=== PATIENT | female | born 1980 | race Hispanic/Latino ===

== ENCOUNTER 2016-08-30 05:52 | Emergency (ER) | payer MEDICAID ==
--- NOTE | 2016-08-30 06:24 | ED PDOC ---
Arrival/HPI - General Time Seen by Provider: 08/30/16 06:18 - History of Present Illness Narrative History of Present Illness (Text): 08/30/16 06:23 Patient presents for suicidal ideation does not have a plan admits to abusing heroin alcohol not sure if she is no abdominal pain no fever no chills no dizziness no dysuria Past Medical History - Provider Review Nursing Documentation Reviewed: Yes - Infectious Disease Hx of Infectious Diseases: None - Tetanus Immunization Tetanus Immunization: Unknown - Cardiac Hx Cardiac Disorders: No - Pulmonary Hx Respiratory Disorders: No - Neurological Hx Neurological Disorder: No - HEENT Hx HEENT Disorder: No - Renal Hx Renal Disorder: No - Endocrine/Metabolic Hx Endocrine Disorders: No - Hematological/Oncological Hx Blood Disorders: No - Integumentary Hx Cellulitis: Yes Other/Comment: Abscess on hands, and feet - Musculoskeletal/Rheumatological Hx Musculoskeletal Disorders: No - Gastrointestinal Hx Gastrointestinal Disorders: No - Genitourinary/Gynecological Hx Genitourinary Disorders: No - Psychiatric Hx Psychophysiologic Disorder: No Hx Substance Use: Yes - Past Surgical History Past Surgical History: No Previous - Surgical History Hx Appendectomy: No Hx Carotid Endarterectomy: No Hx Cholecystectomy: No Hx Coronary Artery Bypass Graft: No Hx Coronary Stent: No Hx Tonsillectomy: No - Anesthesia Hx Anesthesia: No Hx Anesthesia Reactions: No Hx Malignant Hyperthermia: No - Suicidal Assessment Feels Threatened In Home Enviroment: No Family/Social History - Physician Review Nursing Documentation Reviewed: Yes Family/Social History: No Known Family HX Smoking Status: Smoker Currrent Status Unknown Hx Alcohol Use: Yes Hx Substance Use: Yes Substance used: Heroin, Cocaine, Benzo Allergies/Home Meds Allergies/Adverse Reactions: Allergies haloperidol lactate [From Haldol] Allergy (Intermediate, Verified 12/17/15 15:05 ) SHORTNESS OF BREATH haloperidol Allergy (Unknown, Verified 10/26/15 13:53) UNKNOWN Home Medications: Home Meds Medication Instructions Recorded Confirmed Ativan 2 mg PO BID 11/11/15 08/30/16 Review of Systems - Physician Review All systems were reviewed & negative as marked: Yes - Review of Systems Constitutional: Normal Eyes: Normal ENT: Normal Respiratory: Normal Cardiovascular: Normal Gastrointestinal: Abdominal Pain Genitourinary Female: Normal Musculoskeletal: Normal Skin: Normal Neurological: Normal Endocrine: Normal Hemo/Lymphatic: Normal Psychiatric: Suicidal Ideation Physical Exam Vital Signs Reviewed: Yes Vital Signs Pulse Resp BP Pulse Ox 08/30/16 15:50 80 18 118/80 99 08/30/16 13:45 70 18 110/70 99 08/30/16 11:25 80 18 120/73 99 08/30/16 09:30 70 18 124/80 99 08/30/16 07:30 80 18 126/76 98 Temperature: Afebrile Blood Pressure: Normal Pulse: Regular Respiratory Rate: Normal Appearance: Positive for: Well-Appearing, Non-Toxic, Comfortable, Unkept Pain Distress: None Mental Status: Positive for: Alert and Oriented X 3 - Systems Exam Head: Present: Atraumatic, Normocephalic Pupils: Present: PERRL Extroacular Muscles: Present: EOMI Conjunctiva: Present: Normal Mouth: Present: Moist Mucous Membranes Neck: Present: Normal Range of Motion Respiratory/Chest: Present: Clear to Auscultation, Good Air Exchange. No: Respiratory Distress, Accessory Muscle Use Cardiovascular: Present: Regular Rate and Rhythm, Normal S1, S2. No: Murmurs Abdomen: Present: Normal Bowel Sounds. No: Tenderness, Distention, Peritoneal Signs Back: Present: Normal Inspection Upper Extremity: Present: Normal Inspection. No: Cyanosis, Edema Lower Extremity: Present: Normal Inspection. No: Edema Neurological: Present: GCS=15, CN II-XII Intact, Speech Normal Skin: Present: Warm, Dry, Normal Color. No: Rashes Psychiatric: Present: Alert, Oriented x 3, Normal Insight, Normal Concentration , Intoxicated Medical Decision Making - Lab Interpretations Lab Results: 08/30/16 13:00 08/30/16 13:00 Lab Results 08/30/16 13:00: Alcohol, Quantitative 169 H 08/30/16 13:00: Salicylates < 1 L, Acetaminophen < 10.0 L 08/30/16 13:00: Sodium 140, Potassium 4.0, Chloride 104, Carbon Dioxide 23, Anion Gap 17, BUN 10, Creatinine 0.8, Est GFR ( Amer) > 60, Est GFR (Non- Af Amer) > 60, Random Glucose 151 H, Calcium 9.3, Total Bilirubin 0.3, AST 139 H , ALT 106 H, Alkaline Phosphatase 75, Total Protein 8.0, Albumin 4.5, Globulin 3.5, Albumin/Globulin Ratio 1.3 08/30/16 13:00: WBC 7.0 D, RBC 4.53, Hgb 14.7, Hct 42.2, MCV 93.2, MCH 32.5, MCHC 34.8, RDW 12.1, Plt Count 278, MPV 8.8, Gran % 42.3 L, Lymph % (Auto) 46.6 H, [place] % (Auto) 7.7 H, Eos % (Auto) 3.0, Baso % (Auto) 0.4, Gran # 2.94, Lymph # 3.3, [place] # 0.5, Eos # 0.2, Baso # 0.03 08/30/16 09:40: Urine Color Yellow, Urine Appearance Clear, Urine pH 6.5, Ur Specific [place] <= 1.005, Urine Protein Negative, Urine Glucose (UA) Negative, Urine Ketones Negative, Urine Blood Negative, Urine Nitrate Negative, Urine Bilirubin Negative, Urine Urobilinogen 0.2, Ur Leukocyte Esterase Negative, Urine HCG, Qual Negative 08/30/16 09:40: Urine Opiates Screen Positive H, Urine Methadone Screen Negative , Ur Barbiturates Screen Negative, Ur Phencyclidine Scrn Negative, Ur Amphetamines Screen Negative, U Benzodiazepines Scrn Negative, U Oth Cocaine Metabols Positive H, U Cannabinoids Screen Negative - RAD Interpretation Radiology Orders: 08/30/16 13:56 CHEST PORTABLE [RAD] Stat - Medication Orders Current Medication Orders: Clonazepam (Klonopin) 2 mg PO TID PRN; Protocol PRN Reason: Anxiety Lorazepam (Ativan) 2 mg IM Q6H PRN; Protocol PRN Reason: Agitation Last Admin: 08/30/16 09:37 Dose: 2 mg Olanzapine (Zyprexa Zydis) 5 mg PO [facility] MICHAEL PRN Reason: Protocol Last Admin: 08/30/16 14:20 Dose: 5 mg Ziprasidone (Geodon Inj) 20 mg IM Q6H PRN; Protocol PRN Reason: agitation Last Admin: 08/30/16 09:37 Dose: 20 mg Discontinued Medications Lorazepam (Ativan) 2 mg IM ONCE ONE PRN Reason: Protocol Stop: 08/30/16 07:51 Last Admin: 08/30/16 08:03 Dose: 2 mg - Transfer of Care Patient signed out to Dr:: derrek pierre Disposition/Present on Arrival - Present on Arrival Any Indicators Present on Arrival: No History of DVT/PE: No History of Uncontrolled Diabetes: No Urinary Catheter: No History Surgical Site Infection Following: None - Disposition Have Diagnosis and Disposition been Completed?: Yes Diagnosis: Psychosis, Suicidal ideations Disposition: HOSPITALIZED Disposition Time: 07:00 Patient Problems: Current Active Problems Problem Status Onset Psychosis Acute Suicidal ideations Acute Condition: GOOD [facility] - Follow up with primary
[2016-08-30 06:27] VITALS: BMI 22.1
--- NOTE | 2016-08-30 08:26 | ED PDOC ---
Medical Decision Making ED Course and Treatment: 08/30/16 07:00 Patient signed out to me by Dr. Bernal pending labs, PES evaluation, and disposition. 08/30/16 07:50 As per RN, patient being increasingly agitated, yelling at staff. Ativan ordered. - Medication Orders Current Medication Orders: Discontinued Medications Lorazepam (Ativan) 2 mg IM ONCE ONE PRN Reason: Protocol Stop: 08/30/16 07:51 Last Admin: 08/30/16 08:03 Dose: 2 mg Disposition/Present on Arrival - Present on Arrival Any Indicators Present on Arrival: No History of DVT/PE: No History of Uncontrolled Diabetes: No Urinary Catheter: No History of Decub. Ulcer: No History Surgical Site Infection Following: None - Disposition Have Diagnosis and Disposition been Completed?: Yes Diagnosis: Psychosis, Suicidal ideations Disposition: HOSPITALIZED Disposition Time: 14:00 Condition: GOOD Referrals: [facility], [Primary Care Provider] - Follow up with primary
[2016-08-30 09:51] LABS: PH,URINE 6.5 (4.7-8.0); URINE BILIRUBIN NEGATIVE (NEGATIVE); URINE BLOOD NEGATIVE (NEGATIVE); URINE GLUCOSE (UA) NEGATIVE (NEGATIVE); URINE KETONE NEGATIVE (NEGATIVE); URINE LEUKOCYTE ESTERASE NEGATIVE Leu/uL (NEGATIVE); URINE PROTEIN NEGATIVE mg/dL (<30 mg/dL); URINE UROBILINOGEN 0.2 E.U./dL (<1 E.U./dL)
[2016-08-30 09:53] LABS: URINE APPEARANCE CLEAR (CLEAR); URINE COLOR YELLOW (YELLOW)
[2016-08-30] MEDS ORDERED: OLANZapine 5 mg Disintegrating Tab PO SCH (10:00)
[2016-08-30 11:26] VITALS: RESP 18; O2SAT 99
[2016-08-30 13:34] LABS: ADD MANUAL DIFF? NO
--- NOTE | 2016-08-30 13:34 | CON ---
DATE: 08/30/2016 HISTORY OF PRESENT ILLNESS: Shortly, the patient is a 36-year-old female. Long history of polysubstance abuse and dependence. Multiple admissions to the psychiatric inpatient unit; most rec ent was in this facility in 09/2015. The patient came to the hospital this time complaining that she is feeling depressed, also said that she has suicidal ideations, ____ plan. The patient was evaluated in the Emergency Room today. The patient presented to be disheveled, seems to be under the influence of drugs. Without any trigger, patient started to yell at this process description writer say ing that this process description writer is not going to help her. The patient was providing vague and inconsistent hist ory. The patient reported that she was discharged from [facility] about 11 months ago and she stopp ed using drugs intravenously. Right now, the patient is snorting opioids. The patient reported that she was drinking alcohol on a regular basis. The patient started to cry hysterically and said that she cannot live any longer. The patient reported that she has feeling that she wants to cut her wris t. There are no wrist cuts observed on patient's forearms. The patient presented to be emotionally labile and this process description writer was not able to continue conversation because the patient was threatening this process description writer, yelling and screaming. This process description writer reviewed previous history. The patient has multiple adm issions in the past. Also, patient was in multiple rehabs and in detox in the past. VITAL SIGNS: This process description writer reviewed vital signs. Vital signs seem to be stable. MEDICATIONS: Reviewed. The patient got 2 mg of Ativan earlier today. LABORATORIES: Reviewed. There are no labs available. The patient started to scream. The patient was yelling and was disruptive in the Emergency Room. Th is process description writer feels that patient needs to be medicated. Geodon 20 mg and Ativan 2 mg will be given to th e patient. As present moment, patient deemed to be in acute distress; will be not able to sign consent. Moreove r, this process description writer has no beds available. When this process description writer offered the patient to have detox as well as psychiatric inpatient admission, patient started to yell and scream. There is no option to have mean ingful conversation. The patient has no insight, was not able to participate in the interview. MENTAL STATUS EXAMINATION: The patient presented to be disheveled, poor personal hygiene, intermitte nt eye contact. Speech was loud, over-productive, patient was screaming, threatening this process description writer. Mallory taylor described as depressed, hopeless and helpless. Thought process was circumstantial and tangential and disorganized. Thought content: The patient denied hearing voices, denied seeing things. At th e same time, the patient presented to be psychotic and paranoid. The patient also verbalized thought s of killing herself, but plan ____. The patient said that she wanted to kill herself with a razor, cut her wrist with a razor. Impulses are not predictable. IMPRESSION: As per previous history, the patient has bipolar disorder, posttraumatic stress disorder , panic disorder, generalized anxiety disorder. The patient also has polysubstance abuse and depende nce, the patient said that she was using heroin as well as alcohol; polysubstance abuse and dependenc e as per history. PLAN: PRN orders will be placed in the computer; Klonopin 2 mg 3 times a day as needed for anxiety. This process description writer also will give IM medication of Geodon and Ativan, 20 and 2, q. 6 hours as needed for se maggi agitation. The patient also needs to be screened by [facility] for involuntary commitment. The patient also will be started on Zyprexa 5 mg twice a day at the morning time and the nighttime. This process description writer will follow up and advise accordingly. This process description writer will initiate [facility] screening services. Thank you very much for letting me participate in the care of your patient. Julita Sotelo MD cc: [id number] TT: 08/30/2016 11:54:46 Confirmation # [id number] Dictation # [id number] mn 08/30/2016 12:33:31
[2016-08-30 13:42] LABS: BASO # 0.03 K/mm3 (0.0-2.0); BASO % 0.4 % (0.0-3.0); EOS # 0.2 (0.0-0.7); GRAN # 2.94 (1.4-6.5); GRAN % 42.3 % (50.0-68.0); HEMATOCRIT 42.2 % (36.0-48.0); LYMPH # 3.3 (1.2-3.4); LYMPH % 46.6 % (22.0-35.0); MEAN CELL VOLUME 93.2 fL (80.0-105.0); MEAN CORPUSCULAR HEMOGLOBIN 32.5 pg (25.0-35.0); MEAN CORPUSCULAR HGB CONC 34.8 g/dl (31.0-37.0); MEAN PLATELET VOLUME 8.8 fl (7.0-11.0); MONO # 0.5 (0.1-0.6); MONO % 7.7 % (1.0-6.0); PLATELET COUNT 278 10^3/uL (120.0-450.0); RED CELL DISTRIBUTION WIDTH 12.1 % (11.5-14.5)
[2016-08-30 13:47] LABS: ALB/GLOB RATIO 1.3 (1.1-1.8); ALKALINE PHOSPHATASE 75 U/L (38-133); ALT/SGPT 106 U/L (7-56); AST/SGOT 139 U/L (15-39); BILIRUBIN,TOTAL 0.3 mg/dL (0.2-1.3); BLOOD UREA NITROGEN 10 mg/dL (7-21); CALCIUM 9.3 mg/dL (8.4-10.5); CARBON DIOXIDE 23 mmol/L (21-33); CHLORIDE 104 mmol/L (98-107); GFR AFRICAN-AMERICAN > 60; GLUCOSE,RANDOM 151 mg/dL (70-110); SODIUM 140 mmol/L (132-148)
--- NOTE | 2016-08-30 14:30 | RAD ---
HISTORY: psych COMPARISON: Chest x-ray performed 10/26/15 TECHNIQUE: Chest, one view. FINDINGS: LUNGS: No focal consolidation. Please note that chest x-ray has limited sensitivity for the detection of pulmonary masses. PLEURA: No significant pleural effusion identified. No definite pneumothorax . CARDIOVASCULAR: The cardiomediastinal silhouette appears within normal limits of size. OSSEOUS STRUCTURES: No acute osseous abnormality identified. VISUALIZED UPPER ABDOMEN: Unremarkable. OTHER FINDINGS: None. IMPRESSION: No focal consolidation, significant pleural effusion, or definite pneumothorax identified.
--- NOTE | 2016-08-30 18:32 | CARD ---
APPROVED REPORT EKG Measurement Heart [id number] <Conclusion> Normal sinus rhythm Normal ECG
[2016-08-30 20:14] VITALS: BP 120/82; PULSE 79
--- NOTE | 2016-09-01 09:45 | CP.PCM.PCO ---
Physician Communication Note - Physician Communication Note Physician Communication Note: MARYJO called this race and sports book writer, [place] [facility] [place], will be d/c
== END 2016-08-30 20:13 | disposition short-term general hospital (02) ==
LOC: ED 05:52
DX: F29 Unspecified psychosis not due to a substance or known physiological condition (principal); R45.851 Suicidal ideations
CPT/HCPCS: 71010; 80053; 80320; 80324; 80329; 80345; 80346; 80349; 80353; 80358; 80361; 81003; 83992; 84703; 85025; 90791; 93005; 96372; 99285; J2060; J3486

== ENCOUNTER 2016-11-28 12:17 | Inpatient (IN) | payer MEDICAID, OTHER ==
[2016-11-28 12:17] VITALS: BMI 22.1
[2016-11-28] MEDS ORDERED: TDAP Vaccine 0.5 mL Syr IM ONE (12:46)
--- NOTE | 2016-11-28 12:51 | ED PDOC ---
Arrival/HPI - General Historian: Patient - History of Present Illness Symptom Course: Unchanged Activities at Onset: Light Context: Home - General Time Seen by Provider: 11/28/16 12:44 - History of Present Illness Narrative History of Present Illness (Text): 11/28/16 12:44 Maura Cadena is a 36 year old female who presents stating that she used heroin and wanted to kill herself by slitting her wrists. Patient comes into the emergency department with left wrist laceration. (George Ma) Modifying Factors (Text): none (George Ma) Past Medical History - Provider Review Nursing Documentation Reviewed: Yes - Infectious Disease Hx of Infectious Diseases: None - Tetanus Immunization Tetanus Immunization: Unknown - Cardiac Hx Cardiac Disorders: No - Pulmonary Hx Respiratory Disorders: No - Neurological Hx Neurological Disorder: No - HEENT Hx HEENT Disorder: No - Renal Hx Renal Disorder: No - Endocrine/Metabolic Hx Endocrine Disorders: No - Hematological/Oncological Hx Blood Disorders: No - Integumentary Hx Cellulitis: Yes Other/Comment: Abscess on hands, and feet - Musculoskeletal/Rheumatological Hx Musculoskeletal Disorders: No - Gastrointestinal Hx Gastrointestinal Disorders: No - Genitourinary/Gynecological Hx Genitourinary Disorders: No - Psychiatric Hx Psychophysiologic Disorder: No Hx Substance Use: Yes - Past Surgical History Past Surgical History: No Previous - Surgical History Hx Appendectomy: No Hx Carotid Endarterectomy: No Hx Cholecystectomy: No Hx Coronary Artery Bypass Graft: No Hx Coronary Stent: No Hx Tonsillectomy: No - Anesthesia Hx Anesthesia: No Hx Anesthesia Reactions: No Hx Malignant Hyperthermia: No - Suicidal Assessment Feels Threatened In Home Enviroment: No Family/Social History - Physician Review Nursing Documentation Reviewed: Yes Family/Social History: No Known Family HX Smoking Status: Smoker Currrent Status Unknown Hx Alcohol Use: Yes Hx Substance Use: Yes Substance used: Heroin, Cocaine, Benzo Allergies/Home Meds Allergies/Adverse Reactions: Allergies haloperidol lactate [From Haldol] Allergy (Intermediate, Verified 11/28/16 12:42 ) SHORTNESS OF BREATH haloperidol Allergy (Unknown, Verified 11/28/16 12:42) UNKNOWN Home Medications: Home Meds Medication Instructions Recorded Confirmed Unobtainable 11/28/16 11/28/16 Review of Systems - Review of Systems Systems not reviewed;Unavailable: Intoxicated Physical Exam Vital Signs Reviewed: Yes Temperature: Afebrile Blood Pressure: Normal Pulse: Tachycardic (resolved) Respiratory Rate: Normal Appearance: No: Uncomfortable Pain Distress: None Mental Status: No: Confused, Agitated - Physical Exam Narrative Physical Exam (Text): pt in no distress, no airway compromise, breathing without difficulty, good insp /exp effort. No signs of head/torso/extremity trauma. Following commands without difficulty. Head: Present: Atraumatic, Normocephalic. No: Tenderness, Contusion, Swelling, Ecchymosis, Abrasion, Laceration Pupils: Present: PERRL Extroacular Muscles: Present: EOMI Conjunctiva: Present: Normal Mouth: Present: Moist Mucous Membranes Neck: Present: Normal Range of Motion. No: MIDLINE TENDERNESS, Paraspinal Tenderness Respiratory/Chest: Present: Clear to Auscultation, Good Air Exchange. No: Respiratory Distress, Accessory Muscle Use Cardiovascular: Present: Regular Rate and Rhythm, Normal S1, S2. No: Murmurs Abdomen: Present: Normal Bowel Sounds. No: Tenderness, Distention, Peritoneal Signs, Rebound, Guarding Back: Present: Normal Inspection. No: Midline Tenderness, Paraspinal Tenderness Upper Extremity: Left wrist with a 3-4 mm deep horizontal linear laceration. No tendon involvement. No bleeding. Digits with full active and passive ROM. No: Cyanosis, Edema Lower Extremity: Present: Normal Inspection. No: Edema Neurological: Present: GCS=15, CN II-XII Intact Skin: Present: Warm, Dry, Normal Color. No: Rashes Lymphatic: Present: OX3, NI, NC Psychiatric: Present: Alert. No: Agitated (Zelikson,George) Vital Signs Temp Pulse Resp BP Pulse Ox 11/29/16 06:57 97.9 F 66 16 112/87 99 11/29/16 01:47 94 H 16 148/77 100 11/28/16 23:00 90 16 142/76 100 11/28/16 20:30 86 16 142/78 100 11/28/16 19:20 68 12 121/71 98 11/28/16 17:07 91 H 18 114/66 97 11/28/16 15:06 87 18 101/63 95 11/28/16 12:36 98.2 F 102 H 16 113/72 93 L Medical Decision Making ED Course and Treatment: 11/28/16 12:44 Impression: 36 year old female who presents stating that she used heroin and wanted to kill herself by slitting her wrists. Patient comes into the emergency department with left wrist laceration. Plan: -- EKG -- Chest X-ray -- Urinalysis -- Labs -- Ativan and Boostrix -- Reassess and disposition Prior Visits: Notes and results from previous visits were reviewed. Patient last seen in the ED on 08/30/16 for suicidal ideation that day. Patient was admitted to hospitalist care for further evaluation. Progress Notes: EKG shows NSR at [address]-segment elevations, normal intervals. Interpreted by me. PROCEDURE: LACERATION REPAIR Performed by the emergency provider Location: Left wrist Length: 3-4 mm deep approximately 6 cm long horizontally Description: clean wound edges, no foreign bodies Distal CMS: Normal. No deficits. Neurovascularly intact. Anesthesia: Lidocaine 1% Preparation: The wound was cleaned with NS. The area was prepped and draped in the usual sterile fashion. Exploration: The wound was explored and no foreign bodies were found. Procedure: The wound was closed with 4-0 ethilon. There was good approximation. In total, 7 simple interrupted sutures were used. Post-Procedure: Good closure and hemostasis. The patient tolerated the procedure well and there were no complications. CSM remains intact. No bleeding , well approximated, no pulsatile masses, no discoloration, no swelling. Patient is able to move all digits without any difficulty or restriction. Distal neuro and sensory fully intact. After procedure clean dressing applied. (George Ma) - Medication Orders Current Medication Orders: Discontinued Medications Chlordiazepoxide (Librium) 50 mg PO STAT STA Stop: 11/29/16 05:56 Last Admin: 11/29/16 06:37 Dose: 50 mg Lidocaine HCl (Lidocaine 1% (20ml)) Confirm Administered Dose 20 ml .ROUTE .STK- MED ONE Stop: 11/28/16 15:17 Lorazepam (Ativan) 2 mg IM ONCE ONE Stop: 11/28/16 12:47 Last Admin: 11/28/16 16:38 Dose: Tetanus/Reduced Diphtheria/Acell Pertussis (Boostrix Vaccine Inj) 0.5 ml IM .ONCE ONE Stop: 11/28/16 12:47 Last Admin: 11/28/16 16:18 Dose: 0.5 ml ED OBSERVATION Date of observation admission: 11/28/16 Time of observation admission: 12:40 - Progress Note Progress Note: 11/28/16 19:00 Case endorsed to me by Dr. Ma, pending PES evaluation, and dispo. 11/28/16 21:00 Pt resting comfortably, no acute distress. 11/28/16 22:00 PES attempted to interview pt. Pt still under the influence of illegal substances. Will observe pending PES screen. 11/29/16 00:00 Pt sleeping, no acute distress. 11/29/16 02:00 Pt sleeping, no acute distress. 11/29/16 04:00 Pt sleeping, no acute distress. 11/29/16 05:55 PES screener Tigist to Emergency department to evaluate pt. 11/29/16 06:42 Pt seen and evaluated by PES screener Tigist, who discussed case with Dr. Sotelo, psychiatrist. States she will come in to evaluate pt in ER for final disposition. 11/29/16 07:[address] Ma, pending psychiatric disposition as per Dr. Sotelo. (Gregory He) 11/28/16 19:24 patient now alert and awake in no distress 1:1 pt clinically sober, wound reassessed. no bleeding, no pulsatile mass. distal neurovascular fully intact. digits with full ROM, good color pt signed out to Dr. He in stable condition, pending PES evaluation, and dispo 11/29/16 07:[address] He, pending Dr. Sotelo's evaluation pt in no distress this morning, denies complaints. no s/s of withdrawal 11/29/16 08:50: Patient seen by Dr. Sotelo and was accepted to the behavioral health floor. pt aware of and agrees with plan (George Ma) - Scribe Statement The provider has reviewed the documentation as recorded by the Scribe - Scribe Statement Thuy Hendrix Provider Scribe Attestation: All medical record entries made by the Scribe were at my direction and personally dictated by me. I have reviewed the chart and agree that the record accurately reflects my personal performance of the history, physical exam, medical decision making, and the department course for this patient. I have also personally directed, reviewed, and agree with the discharge instructions and disposition. (George Ma) Disposition/Present on Arrival - Present on Arrival Any Indicators Present on Arrival: No History of DVT/PE: No History of Uncontrolled Diabetes: No Urinary Catheter: No History Surgical Site Infection Following: None - Disposition Have Diagnosis and Disposition been Completed?: Yes Disposition Time: 12:40 Patient Plan: Admission - Disposition Diagnosis: Suicidal behavior Disposition: HOSPITALIZED Condition: FAIR
[2016-11-28 13:54] LABS: BASO # 0.03 K/mm3 (0.0-2.0); BASO % 0.4 % (0.0-3.0); EOS # 0.1 (0.0-0.7); EOS % 1.9 % (1.5-5.0); GRAN # 3.73 (1.4-6.5); GRAN % 49.9 % (50.0-68.0); MEAN CELL VOLUME 93.1 fl (80.0-105.0); MEAN CORPUSCULAR HEMOGLOBIN 31.9 pg (25.0-35.0); MEAN CORPUSCULAR HGB CONC 34.3 g/dl (31.0-37.0); MEAN PLATELET VOLUME 8.6 fl (7.0-11.0); MONO # 0.6 (0.1-0.6); MONO % 7.8 % (1.0-6.0); RED CELL DISTRIBUTION WIDTH 13.2 % (11.5-14.5); WHITE BLOOD COUNT 7.5 10^3/ul (4.5-11.0)
[2016-11-28 14:05] LABS: ALB/GLOB RATIO 1.4 (1.1-1.8); ALKALINE PHOSPHATASE 74 U/L (38-133); ALT/SGPT 61 U/L (7-56); AST/SGOT 67 U/L (15-39); BILIRUBIN,TOTAL < 0.1 mg/dL (0.2-1.3); BLOOD UREA NITROGEN 11 mg/dL (7-21); CALCIUM 8.3 mg/dL (8.4-10.5); CARBON DIOXIDE 23 mmol/L (21-33); CHLORIDE 113 mmol/L (98-107); GFR AFRICAN-AMERICAN > 60; GLUCOSE,RANDOM 90 mg/dL (70-110); POTASSIUM 3.4 mmol/L (3.6-5.0); SODIUM 149 mmol/L (132-148); TOTAL PROTEIN 6.9 g/dL (5.8-8.3)
[2016-11-28] MEDS ORDERED: Lidocaine 1% Inj (20ml) ONE (15:16)
[2016-11-28 15:26] LABS: URINE BILIRUBIN NEGATIVE (NEGATIVE); URINE BLOOD NEGATIVE (NEGATIVE); URINE GLUCOSE (UA) NEGATIVE (NEGATIVE); URINE KETONE NEGATIVE (NEGATIVE); URINE LEUKOCYTE ESTERASE NEGATIVE Leu/uL (NEGATIVE); URINE PROTEIN NEGATIVE mg/dL (<30 mg/dL); URINE UROBILINOGEN 0.2 E.U./dL (<1 E.U./dL)
[2016-11-28 15:28] LABS: URINE APPEARANCE CLEAR (CLEAR); URINE COLOR YELLOW (YELLOW)
--- NOTE | 2016-11-28 19:09 | CARD ---
APPROVED REPORT EKG Measurement Heart [id number] <Conclusion> Normal sinus rhythm Rightward axis Cannot rule out Anterior infarct, age undetermined Abnormal ECG
--- NOTE | 2016-11-28 19:10 | CARD ---
APPROVED REPORT EKG Measurement Heart [id number] <Conclusion> Normal sinus rhythm with sinus arrhythmia Normal ECG
--- NOTE | 2016-11-29 07:16 | ED PDOC ---
Physical Exam Vital Signs Reviewed: Yes Vital Signs Temp Pulse Resp BP Pulse Ox 11/29/16 06:57 97.9 F 66 16 112/87 99 11/29/16 01:47 94 H 16 148/77 100 11/28/16 23:00 90 16 142/76 100 11/28/16 20:30 86 16 142/78 100 11/28/16 19:20 68 12 121/71 98 11/28/16 17:07 91 H 18 114/66 97 11/28/16 15:06 87 18 101/63 95 11/28/16 12:36 98.2 F 102 H 16 113/72 93 L Temperature: Afebrile Blood Pressure: Normal Pulse: Tachycardic Respiratory Rate: Normal Appearance: Positive for: Well-Appearing, Non-Toxic, Comfortable Pain Distress: None Mental Status: Positive for: Alert and Oriented X 3 Medical Decision Making ED Course and Treatment: 11/29/16 07:15: Patient sign out from overnight. Pending evaluation by psychiatrist this morning. - Medication Orders Current Medication Orders: Discontinued Medications Chlordiazepoxide (Librium) 50 mg PO STAT STA Stop: 11/29/16 05:56 Last Admin: 11/29/16 06:37 Dose: 50 mg Lidocaine HCl (Lidocaine 1% (20ml)) Confirm Administered Dose 20 ml .ROUTE .STK- MED ONE Stop: 11/28/16 15:17 Lorazepam (Ativan) 2 mg IM ONCE ONE Stop: 11/28/16 12:47 Last Admin: 11/28/16 16:38 Dose: Tetanus/Reduced Diphtheria/Acell Pertussis (Boostrix Vaccine Inj) 0.5 ml IM .ONCE ONE Stop: 11/28/16 12:47 Last Admin: 11/28/16 16:18 Dose: 0.5 ml - Scribe Statement The provider has reviewed the documentation as recorded by the Sisi Abdul Provider Scribe Attestation: All medical record entries made by the Scribe were at my direction and personally dictated by me. I have reviewed the chart and agree that the record accurately reflects my personal performance of the history, physical exam, medical decision making, and the department course for this patient. I have also personally directed, reviewed, and agree with the discharge instructions and disposition. Disposition/Present on Arrival - Present on Arrival Any Indicators Present on Arrival: No History of DVT/PE: No History of Uncontrolled Diabetes: No Urinary Catheter: No History of Decub. Ulcer: No History Surgical Site Infection Following: None - Disposition Condition: STABLE
--- NOTE | 2016-11-29 08:34 | RAD ---
HISTORY: med clearance COMPARISON: 08/30/2016 FINDINGS: LUNGS: No active pulmonary disease. PLEURA: No significant pleural effusion identified, no pneumothorax apparent. CARDIOVASCULAR: Normal. OSSEOUS STRUCTURES: No significant abnormalities. VISUALIZED UPPER ABDOMEN: Normal. OTHER FINDINGS: None. IMPRESSION: No active disease. No interval pathology noted
--- NOTE | 2016-11-29 13:14 | PCM.BM ---
<Malka Enriquez - Last Filed: 11/29/16 13:11> Treatment Plan Problems - Problems identified on initial assessmt sucidal ideation Date Initiated: 11/29/16 Time Initiated: 13:11 Assessment reference: NA Status: Active Priority: 1 helpless/hopeless Date Initiated: 11/29/16 Time Initiated: 13:12 Assessment reference: NA Status: Active Priority: 2 anxiety Date Initiated: 11/29/16 Time Initiated: 13:12 Assessment reference: NA Status: Active Priority: 3 ineffective coping Date Initiated: 11/29/16 Time Initiated: 13:14 Assessment reference: NA Status: Active Priority: 5 Treatment assets and liabiliti Patient Assests: adapts well, ADL independent, negotiates basic needs Patient Liabilities: poor support system, substance abuse - Milieu Protocol Maintain good personal hygiene: daily Encourage regular showers, daily Remind patient to perform daily oral care, daily Assist patient to perform ADL's Conduct patient checks and document Observation sheet: Q15 minutes Maintain personal safety: every shift Educate patient to report safety concerns to staff, every shift Monitor environment for contraband/sharps Medication safety: Monitor for expected outcome, potential side effects: every shift, Assess barriers to learning: every shift, Assess readiness for medication education: every shift Discharge/Continuing Care - Education Needs Education Needs: Patient Medication, Patient Diagnosis/Disease Process, Patient Coping Skills, Patient Community resources, Patient Personal Hygiene/Grooming - Discharge Discharge Criteria: Tolerates medication w/o severe side effects, Free of Suicidal thoughts, Ability to care for self <Julita Sotelo - Last Filed: 11/29/16 16:28> - Diagnosis (1) Bipolar 1 disorder Status: Chronic Interventions: 11/29/16 16:39 Psychoeducation Psychopharmacology/adjustment of medications as needed/ monitoring possible side effects Monitor blood level of mood stabilizers Evaluate pt on daily basis Compliance with medications and follow up appointments Suicide and homicide risk assessment and prevention, coping strategies, safety plan Relapse prevention Reduction of symptoms Improve functional status Family intervention As outpatient: cognitive behavioral therapy (2) Polysubstance dependence Status: Chronic Interventions: 11/29/16 16:39 Monitoring withdrawal symptoms Medical detoxification Pharmacotherapy for alcohol/benzos/opioid dependence Maintaining sobriety Relapse prevention Possible rehabilitation Motivational interviewing 12-step programs: AA meetings (3) PTSD (post-traumatic stress disorder) Status: Chronic Interventions: 11/29/16 16:39 Psychoeducation Psychopharmacology/adjustment of medications as needed/ monitoring possible side effects Evaluate pt on daily basis Compliance with medications and follow up appointments Suicide and homicide risk assessment and prevention, coping strategies, safety plan Reduction of symptoms Relaxation techniques and breathing exercises Improve functional status Family intervention As outpatient: cognitive behavioral therapy (4) Hepatitis C Status: Chronic Interventions: 11/29/16 16:39 Pt will be seen by medical team as needed Medications will be confirmed and resumed Additional consultation by specialists as needed Lab work as needed (CBC, CMP, TSH, free T4, UA, Urine test for females as needed) CXR as needed EKG Physical therapy valuation as needed <Arlene Cantrell Y - Last Filed: 12/01/16 11:12>
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
[2016-11-29] MEDS ORDERED: Bacitracin Ointment 30 GM TUBE TOP SCH (16:30)
[2016-11-29] MEDS: Bacitracin Ointment 30 GM TUBE TOP SCH (17:41)
[2016-11-30] MEDS ORDERED: Potassium Chloride 40 mEq/30 ml LIQ UD PO ONE (07:23)
[2016-11-30] MEDS: Multivitamin Therapeutic Tab PO SCH (07:57)
[2016-11-30 08:38] LABS: BASO # 0.02 K/mm3 (0.0-2.0); BASO % 0.1 % (0.0-3.0); EOS % 0.2 % (1.5-5.0); GRAN # 11.52 (1.4-6.5); GRAN % 76.4 % (50.0-68.0); HEMATOCRIT 41.3 % (36.0-48.0); LYMPH # 2.1 (1.2-3.4); LYMPH % 13.6 % (22.0-35.0); MEAN CELL VOLUME 93.2 fl (80.0-105.0); MEAN CORPUSCULAR HEMOGLOBIN 32.7 pg (25.0-35.0); MEAN CORPUSCULAR HGB CONC 35.1 g/dl (31.0-37.0); MEAN PLATELET VOLUME 9.3 fl (7.0-11.0); MONO # 1.5 (0.1-0.6); MONO % 9.7 % (1.0-6.0); RED CELL DISTRIBUTION WIDTH 12.6 % (11.5-14.5); WHITE BLOOD COUNT 15.1 10^3/ul (4.5-11.0)
[2016-11-30 08:49] LABS: ALB/GLOB RATIO 1.3 (1.1-1.8); ALKALINE PHOSPHATASE 75 U/L (38-133); ALT/SGPT 58 U/L (7-56); AST/SGOT 59 U/L (15-39); BILIRUBIN,TOTAL 0.8 mg/dL (0.2-1.3); BLOOD UREA NITROGEN 12 mg/dL (7-21); CALCIUM 9.4 mg/dL (8.4-10.5); CARBON DIOXIDE 21 mmol/L (21-33); CHLORIDE 104 mmol/L (98-107); GFR AFRICAN-AMERICAN > 60; GLUCOSE,RANDOM 176 mg/dL (70-110); POTASSIUM 3.1 mmol/L (3.6-5.0); SODIUM 140 mmol/L (132-148); TOTAL PROTEIN 7.9 g/dL (5.8-8.3)
[2016-11-30] MEDS: Bacitracin Ointment 30 GM TUBE TOP SCH ×2 (10:14→17:23)
--- NOTE | 2016-11-30 12:46 | PCM.PYCHPN ---
Psychiatric Progress Note - Psychiatric Progress Note Patient seen today, length of contact: 30min Patient Chief Complaint: "I will stay in the hospital, I don't want to use again" Problems Identified/Issues Discussed: Suicide/ homicide prevention, past psychiatric h/o, current psychiatric symptoms , medical problems, risk/benefits and alternatives of medications, medications compliance, coping strategies, substance abuse h/o, relapse prevention, importance of follow up with psychiatrist and therapist, discharge plan. Medical Problems: h/o Cellulitis, Hepatitis C, Endocarditis Diagnostic Results: 11/30/16 08:20 11/30/16 08:20 Lab Results 11/30/16 08:20: Sodium 140, Potassium 3.1 L, Chloride 104, Carbon Dioxide 21, Anion Gap 18, BUN 12, Creatinine 0.7, Est GFR ( Amer) > 60, Est GFR (Non- Af Amer) > 60, Random Glucose 176 H, Calcium 9.4, Total Bilirubin 0.8, AST 59 H , ALT 58 H, Alkaline Phosphatase 75, Total Protein 7.9, Albumin 4.5, Globulin 3.5, Albumin/Globulin Ratio 1.3 11/30/16 08:20: WBC 15.1 H D, RBC 4.43, Hgb 14.5 D, Hct 41.3, MCV 93.2, MCH 32.7, MCHC 35.1, RDW 12.6, Plt Count 334, MPV 9.3, Gran % 76.4 H, Lymph % (Auto ) 13.6 L, Rooks % (Auto) 9.7 H, Eos % (Auto) 0.2 L, Baso % (Auto) 0.1, Gran # 11.52 H, Lymph # 2.1, Rooks # 1.5 H, Eos # 0.0, Baso # 0.02 11/29/16 09:50: Urine HCG, Qual Negative 11/28/16 14:55: Urine Opiates Screen Positive H, Urine Methadone Screen Negative , Ur Barbiturates Screen Negative, Ur Phencyclidine Scrn Negative, Ur Amphetamines Screen Negative, U Benzodiazepines Scrn Positive H, U Oth Cocaine Metabols Positive H, U Cannabinoids Screen Negative 11/28/16 14:55: Urine Color Yellow, Urine Appearance Clear, Urine pH 6.0, Ur Specific [place] >= 1.030, Urine Protein Negative, Urine Glucose (UA) Negative, Urine Ketones Negative, Urine Blood Negative, Urine Nitrate Negative, Urine Bilirubin Negative, Urine Urobilinogen 0.2, Ur Leukocyte Esterase Negative 11/28/16 13:40: WBC 7.5, RBC 3.76, Hgb 12.0, Hct 35.0 L, MCV 93.1, MCH 31.9, MCHC 34.3, RDW 13.2, Plt Count 293, MPV 8.6, Gran % 49.9 L, Lymph % (Auto) 40.0 H, Rooks % (Auto) 7.8 H, Eos % (Auto) 1.9, Baso % (Auto) 0.4, Gran # 3.73, Lymph # 3.0, Rooks # 0.6, Eos # 0.1, Baso # 0.03 11/28/16 13:30: Alcohol, Quantitative 289 H 11/28/16 13:30: Salicylates < 1 L, Acetaminophen < 10.0 L 11/28/16 13:30: Sodium 149 H, Potassium 3.4 L, Chloride 113 H, Carbon Dioxide 23 , Anion Gap 16, BUN 11, Creatinine 0.6, Est GFR ( Amer) > 60, Est GFR ( Non-Af Amer) > 60, Random Glucose 90, Calcium 8.3 L, Total Bilirubin < 0.1 L, AST 67 H, ALT 61 H, Alkaline Phosphatase 74, Total Protein 6.9, Albumin 4.0, Globulin 2.8, Albumin/Globulin Ratio 1.4 Vital Signs Temp Pulse Pulse Resp BP Pulse Ox 11/30/16 07:00 97.8 F 89 18 121/77 98 11/30/16 06:18 98 H 121/77 11/29/16 16:11 104 H 130/99 H 11/29/16 11:06 69 11/29/16 09:12 66 16 124/68 99 11/29/16 06:57 97.9 F 66 16 112/87 99 11/29/16 01:47 94 H 16 148/77 100 11/28/16 23:00 90 16 142/76 100 11/28/16 20:30 86 16 142/78 100 11/28/16 19:20 68 12 121/71 98 11/28/16 17:07 91 H 18 114/66 97 08/22/17 15:06 87 18 101/63 95 11/28/16 12:36 98.2 F 102 H 16 113/72 93 L DSM 5 Symptoms Update: Shortly pt is 36 yo female with long h/o polysubstance abuse and dependence, h/o suicidal attempts and psychiatric inpatient hospitalizations, most recent was 04/2015, multiple medical problems, was admitted for evaluation and stabilization of depressive symptoms and worsening of anxiety as well as possible suicidal ideation, pt s/p left wrist self inflicted cut which needed 7x sutures in the ED, initially pt was willing to sign consent for treatment, later in the unit pt was demanding to be discharged because she was not satisfied with medications which this continuity writer prescribed. pt was seen today at the tx team meeting, improved personal hygiene, said that she is very anxious, pt obviously has UE shakes, given ativan po 2mg stat. pt also c/o diarrhea and vomiting (unwitnessed), saying that it is her usual symptoms of opioid withdrawals "one bag of heroin could help me, I would feel much better", at the same time pt has WBC elevated, will call medical team. Pt has laceration which is self inflicted on the left UE, checked, no signs of infection. pt submitted 48 hour notice yesterday, screener came over but patient was not able to participate at the interview because of the sleepiness, screener supposed to come back today, but pt changed her mind and decided to stay in the hospital, rescinded 48hr notice, screening canceled. pt has tendency of asking for more meds, was asking about pain killers, benzos, stimulants. pt presented to be emotionally labile, pressured speech, at times tearful, will add seroquel. Pt compliant with meds, no signs of agitation or aggression. pt tolerates meds well, no side effects observed or reported. AIMS 0, no EPS. DSM 5 Diagnosis: as per history patient has bipolar disorder Rule out PTSD Polysubstance abuse and dependence Substance-induced mood disorder alcohol use disorder r/o Antisocial personality disorder Medication Change: Yes (seroquel started, neurontin increased) Medical Record Reviewed: Yes Consults ordered or reviewed: medical consult was called Mental Status Examination - Cognitive Function Orientation: Person, Place Memory: Intact Attention: Poor Concentration: Poor Association: WNL Fund of Knowledge: WNL - Mood Mood: Depressed, Anxious - Affect Affect: Flat - Formal Thought Process Formal Thought Process: No Impairment - Suicidal Ideation Suicidal Ideation: No - Homicidal Ideation Homicidal Ideation: No Goal/Treatment Plan - Goal/Treatment Plan Need for Continued Stay: Remain at risks for inpatient hospitalization, Severe depression anxiety, Discharge may exacerbated symptoms, Severe functional impairment Progress Toward Problem(s) and Goals/Treatment Plan: milieu, structure, supportive therapy Neurontin 600 mg 3 times a day for cravings Ativan 2 mg 4 times a day for possible alcohol withdrawal symptoms Multivitamins, thiamine, folic acid daily Trazodone will be d/c seroquel 50mg amhs for mood stabilization Wellbutrin 75 mg twice a day for depressive symptoms Clonidine 0.1 mg twice a day for opioid withdrawals Symptomatic treatment for possible opioid as well as alcohol withdrawal symptoms Vital signs will be monitoring medical evaluation When necessary medication for possible agitation social work nurse evaluation for possible inpatient rehabilitation pt wants to stay in the hospital, rescinded 48hr notice SW evaluation for possible rehab We'll monitor closely. Estimated Date of D/C: 12/06/16
--- NOTE | 2016-11-30 16:48 | CP.PCM.CON ---
<AUBREY ESQUIVEL - Last Filed: 11/30/16 16:28> History of Present Illness - History of Present Illness History of Present Illness: MEDICINE CONSULT NOTE CC: Leukocytosis, N/V and Diarrhea HPI: Mrs. Cadena is a 36 year old female with a past medical history significant for endocarditis, hepatitis C, polysubstance abuse, alcohol abuse/ withdrawal, skin abscesses, bipolar, and antisocial personality disorder who presents to the medicine service for medical evaluation. Patient reports that she is in the psych unit because she recently attempted suicide by lacerating her left wrist with a razor blade. Patient reports that she last used heroin two days ago and since then she has experienced her "normal withdrawal symptoms " of chills, N/V and diarrhea. She reports no alleviating or aggravating factors. She was found to have a leukocytosis of over 15 on 11/30 CBC and hypokalemia of 3.1 on 11/30 CMP. A chest x-ray done in the ED showed no active disease. Currently patient reports no change in her complaints. She denies fevers, weight loss, headache, changes in her vision, HEENT pain/discharge, dysphagia, shortness of breath, cough, chest pain, palpitations, abdominal pain, constipation, any urinary symptoms, any new rashes, or any numbness/tingling/ weakness of any extremity. PMH: Endocarditis, hepatitis C, polysubstance abuse, alcohol abuse/withdrawal, skin abscesses, bipolar, multiple suicide attempts, and antisocial personality disorder PSH: Bilateral rods placed in legs with ankle repair Family: Mother-Ovarian Cancer, Father-CRC Social: Currently smoking 2 packs per day with 40 year pack smoking history, currently drinks one liter of vodka daily, and currently uses IV heroine and cocaine; lives with her boyfriend in [place] Allergies: Haldol Home Medications: As per MAR Review of Systems - Review of Systems Review of Systems: Please refer to HPI Past Patient History - Infectious Disease Hx of Infectious Diseases: None - Tetanus Immunizations Tetanus Immunization: Unknown - Past Medical History & Family History Past Medical History?: Yes - Past Social History Smoking Status: Smoker Currrent Status Unknown - CARDIAC Hx Cardiac Disorders: No - PULMONARY Hx Respiratory Disorders: No - NEUROLOGICAL Hx Neurological Disorder: No - HEENT Hx HEENT Problems: No - RENAL Hx Chronic Kidney Disease: No - ENDOCRINE/METABOLIC Hx Endocrine Disorders: No - HEMATOLOGICAL/ONCOLOGICAL Hx Blood Disorders: No - INTEGUMENTARY Hx Cellulitis: Yes Other/Comment: Abscess on hands, and feet - MUSCULOSKELETAL/RHEUMATOLOGICAL Hx Musculoskeletal Disorders: No - GASTROINTESTINAL Hx Gastrointestinal Disorders: No - GENITOURINARY/GYNECOLOGICAL Hx Genitourinary Disorders: No - PSYCHIATRIC Hx Substance Use: Yes - SURGICAL HISTORY Hx Appendectomy: No Hx Carotid Endarterectomy: No Hx Cholecystectomy: No Hx Coronary Artery Bypass Graft: No Hx Coronary Stent: No Hx Tonsillectomy: No - ANESTHESIA Hx Anesthesia: No Hx Anesthesia Reactions: No Hx Malignant Hyperthermia: No Meds Allergies/Adverse Reactions: Allergies Allergy/AdvReac Type Severity Reaction Status Date / Time haloperidol lactate Allergy Intermediate SHORTNESS Verified 11/29/16 13:02 [From Haldol] OF BREATH haloperidol Allergy Unknown UNKNOWN Verified 11/29/16 13:02 - Medications Medications: Current Medications Bacitracin (Bacitracin) 0 gm TOP BID [facility] Last Admin: 11/30/16 10:14 Dose: 1 oin Bupropion HCl (Wellbutrin) 75 mg PO BID [facility] Last Admin: 11/30/16 07:58 Dose: 75 mg Clonidine HCl (Catapres) 0.1 mg PO BID PRN PRN Reason: opioid withdrawals, BP >140/90 Last Admin: 11/30/16 15:44 Dose: 0.1 mg Folic Acid (Folic Acid) 1 mg PO DAILY [facility] Last Admin: 11/30/16 07:57 Dose: 1 mg Gabapentin (Neurontin) 600 mg PO TID [facility] PRN Reason: Protocol Last Admin: 11/30/16 14:26 Dose: 600 mg Hydrocortisone (Cortizone 1% Cream) 0 gm TOP BID [facility] Ibuprofen (Motrin Tab) 800 mg PO TID PRN PRN Reason: pain >7/10, fever >100 Last Admin: 11/30/16 14:23 Dose: 800 mg Loperamide HCl (Imodium) 2 mg PO QID PRN PRN Reason: Diarrhea Lorazepam (Ativan) 2 mg PO QID [facility] PRN Reason: Protocol Last Admin: 11/30/16 07:58 Dose: 2 mg Multivitamins (Thera Tab) 1 tab PO 0800 [facility] Last Admin: 11/30/16 07:57 Dose: 1 tab Nicotine (Nicoderm Cq) 1 patch TD DAILY [facility] Last Admin: 11/30/16 10:09 Dose: 1 patch Ondansetron HCl (Zofran Odt) 4 mg PO Q8H PRN PRN Reason: Nausea/Vomiting Quetiapine Fumarate (Seroquel) 50 mg PO AMHS [facility] PRN Reason: Protocol Thiamine HCl (Vitamin B1 Tab) 100 mg PO DAILY [facility] Last Admin: 11/30/16 07:57 Dose: 100 mg Trazodone HCl (Desyrel) 50 mg PO HS [facility] Last Admin: 11/29/16 23:31 Dose: 50 mg Ziprasidone (Geodon Inj) 20 mg IM Q6H PRN; Protocol PRN Reason: severe agitation Last Admin: 11/29/16 13:44 Dose: 20 mg Physical Exam - Constitutional Appears: Non-toxic, No Acute Distress - Head Exam Head Exam: ATRAUMATIC, NORMOCEPHALIC - Eye Exam Eye Exam: EOMI, Normal appearance, PERRL - ENT Exam ENT Exam: Mucous Membranes Moist, Normal Exam, Normal Oropharynx - Neck Exam Neck exam: Positive for: Full Rom, Normal Inspection. Negative for: Lymphadenopathy, Tenderness, Thyromegaly - Respiratory Exam Respiratory Exam: Clear to Auscultation Bilateral, NORMAL BREATHING PATTERN. absent: Chest Wall Tenderness, Rales, Rhonchi, Wheezes, Respiratory Distress - Cardiovascular Exam Cardiovascular Exam: REGULAR RHYTHM, RRR, +S1, +S2. absent: Tachycardia - GI/Abdominal Exam GI & Abdominal Exam: Normal Bowel Sounds, Soft. absent: Distended, Firm, Guarding, Tenderness - Exam Exam: absent: Bladder Distension - Extremities Exam Extremities exam: Positive for: normal capillary refill, normal inspection, pedal pulses present. Negative for: calf tenderness, pedal edema Additional comments: L wrist with sutured laceration with no erythema, discharge or edema - Back Exam Back exam: absent: CVA tenderness (L), CVA tenderness (R), paraspinal tenderness , rash noted, vertebral tenderness - Neurological Exam Neurological exam: Alert, Normal Gait, Oriented x3 - Psychiatric Exam Psychiatric exam: Normal Affect, Normal Mood - Skin Skin Exam: Dry, Intact, Warm Additional comments: Patches/islands of hypopigmented skin scattered on face and upper torso Results - Vital Signs Recent Vital Signs: Last Vital Signs Temp 97.8 F 11/30/16 07:00 Pulse 106 H 08/24/17 15:44 Resp 18 11/30/16 07:00 BP 123/81 11/30/16 15:44 Pulse Ox 98 11/30/16 07:00 - Labs Result Diagrams: 11/30/16 08:20 11/30/16 08:20 Labs: Laboratory Results - last 24 hr 11/30/16 11/30/16 08:20 08:20 WBC 15.1 H D RBC 4.43 Hgb 14.5 D Hct 41.3 MCV 93.2 MCH 32.7 MCHC 35.1 RDW 12.6 Plt Count 334 MPV 9.3 Gran % 76.4 H Lymph % (Auto) 13.6 L [place] % (Auto) 9.7 H Eos % (Auto) 0.2 L Baso % (Auto) 0.1 Gran # 11.52 H Lymph # 2.1 [place] # 1.5 H Eos # 0.0 Baso # 0.02 Sodium 140 Potassium 3.1 L Chloride 104 Carbon Dioxide 21 Anion Gap 18 BUN 12 Creatinine 0.7 Est GFR ( Amer) > 60 Est GFR (Non-Af Amer) > 60 Random Glucose 176 H Calcium 9.4 Total Bilirubin 0.8 AST 59 H ALT 58 H Alkaline Phosphatase 75 Total Protein 7.9 Albumin 4.5 Globulin 3.5 Albumin/Globulin Ratio 1.3 - EKG Data EKG Interpreted by: Myself EKG shows normal: Sinus rhythm Rate: Normal Assessment & Plan - Assessment and Plan (Free Text) Assessment: 36 year old female with a past medical history significant for endocarditis, hepatitis C, polysubstance abuse, alcohol abuse/withdrawal, skin abscesses, bipolar, and antisocial personality disorder who presents to the medicine service for medical evaluation Plan: 1. Leuokocytosis -etiologies considered: gastroenteritis, stress reaction or wound infection -WBC at 15.1 on 11/30, with WBC at 7.5 on 11/28 -UA negative for UTI and chest x-ray with no active disease on 11/28 -Blood culture, Stool C. Diff, Stool culture and Procal pending -Bacitracin and Hydrocortizone creams for L wrist laceration -will obtain CBC on 11/30 to assess if the leukocytosis persists -will consider PO antibiotics upon discharge based on results of culture and CBC 's 2. Hypokalemia -K+ at 3.1 on 11/30 -repleted with 40meq of KCl liquid formation -will obtain CMP on 11/30 to assess correction 3. History of Colon and Ovarian Cancer -patients father at 51 of CRC and mother diagnosed with ovarian cancer -recommend follow up with PMD for routine cancer screenings based on family history 4. GI/DVT Prophylaxis -Protonix PO/ambulation Patient seen and case discussed with attending, Dr. Ubaldo Hollis. - Date & Time Date: 11/30/16 Time: 16:51 <Ubaldo Hollis B - Last Filed: 12/02/16 14:47> Meds - Medications Medications: Current Medications Amitriptyline HCl (Elavil) 25 mg PO HS [facility] Bacitracin (Bacitracin) 0 gm TOP BID [facility] Last Admin: 12/02/16 08:36 Dose: 1 oin Bupropion HCl (Wellbutrin) 100 mg PO BID [facility] Last Admin: 12/02/16 08:36 Dose: 100 mg Clonidine HCl (Catapres) 0.1 mg PO BID PRN PRN Reason: opioid withdrawals, BP >140/90 Last Admin: 12/02/16 14:02 Dose: 0.1 mg Folic Acid (Folic Acid) 1 mg PO DAILY [facility] Last Admin: 12/02/16 08:36 Dose: 1 mg Gabapentin (Neurontin) 600 mg PO TID [facility] PRN Reason: Protocol Last Admin: 12/02/16 12:27 Dose: 600 mg Hydrocortisone (Cortizone 1% Cream) 0 gm TOP BID [facility] Last Admin: 12/02/16 08:37 Dose: 1 cre Ibuprofen (Motrin Tab) 800 mg PO TID PRN PRN Reason: pain >7/10, fever >100 Last Admin: 12/02/16 01:20 Dose: 800 mg Loperamide HCl (Imodium) 2 mg PO QID PRN PRN Reason: Diarrhea Last Admin: 11/30/16 21:00 Dose: 2 mg Lorazepam (Ativan) 2 mg PO QID [facility] PRN Reason: Protocol Last Admin: 12/02/16 12:27 Dose: 2 mg Multivitamins (Thera Tab) 1 tab PO 0800 [facility] Last Admin: 12/02/16 08:36 Dose: 1 tab Nicotine (Nicoderm Cq) 1 patch TD DAILY [facility] Last Admin: 12/02/16 08:34 Dose: 1 patch Ondansetron HCl (Zofran Odt) 4 mg PO Q8H PRN PRN Reason: Nausea/Vomiting Pantoprazole Sodium (Protonix Ec Tab) 40 mg PO 0600 [facility] Last Admin: 12/02/16 07:09 Dose: 40 mg Quetiapine Fumarate (Seroquel) 150 mg PO AMHS [facility] PRN Reason: Protocol Last Admin: 12/02/16 11:20 Dose: Not Given Thiamine HCl (Vitamin B1 Tab) 100 mg PO DAILY [facility] Last Admin: 12/02/16 08:36 Dose: 100 mg Ziprasidone (Geodon Inj) 20 mg IM Q6H PRN; Protocol PRN Reason: severe agitation Last Admin: 11/29/16 13:44 Dose: 20 mg Results - Vital Signs Recent Vital Signs: Last Vital Signs Temp 97.7 F 12/02/16 07:00 Pulse 78 12/02/16 14:02 Resp 19 12/02/16 07:00 BP 110/78 12/02/16 14:02 Pulse Ox 100 12/02/16 07:00 - Labs Result Diagrams: 12/01/16 07:00 12/01/16 07:00 Labs: Laboratory Results - last 24 hr 12/01/16 07:00 Procalcitonin < 0.05 L Attending/Attestation - Attestation I have personally seen and examined this patient.: Yes I have fully participated in the care of the patient.: Yes I have reviewed all pertinent clinical information: Yes Notes (Text): I have seen and examined the patient at bedside. Agree with the above note with the following additions/ exceptions: Briefly this is 36 year old female with history of endocarditis, hepatitis C, polysubstance abuse, alcohol abuse/ withdrawal, tobacco use, vitiligo, skin abscesses, bipolar, and antisocial personality disorder who was admitted to psych floor for suicidal ideation. Manage as per psych. TSH within normal limits. Patient has leukocytosis however she does not have any complaints. Will do blood culture, urinalysis and CXR. Patient has a clean wound on left wrist. No sign of infection. Will not start any antibiotics at this time. Will repeat CBC in am. Counselling provided regarding tobacco, alcohol abuse and drug abuse. Hypokalemia was repleted. Upon discharge patient will follow up in [facility]. Dr Ubaldo Hollis
[2016-11-30] MEDS: Hydrocortisone 1% Cream (30 GM) TOP SCH (17:23)
[2016-12-01 07:17] LABS: BASO # 0.02 K/mm3 (0.0-2.0); BASO % 0.2 % (0.0-3.0); EOS # 0.1 (0.0-0.7); EOS % 0.6 % (1.5-5.0); GRAN # 6.02 (1.4-6.5); LYMPH # 2.4 (1.2-3.4); LYMPH % 25.4 % (22.0-35.0); MEAN CELL VOLUME 94.5 fl (80.0-105.0); MEAN CORPUSCULAR HEMOGLOBIN 32.3 pg (25.0-35.0); MEAN CORPUSCULAR HGB CONC 34.1 g/dl (31.0-37.0); MONO # 0.9 (0.1-0.6); MONO % 9.8 % (1.0-6.0); RED CELL DISTRIBUTION WIDTH 12.9 % (11.5-14.5); WHITE BLOOD COUNT 9.4 10^3/ul (4.5-11.0)
[2016-12-01 07:23] LABS: ALB/GLOB RATIO 1.2 (1.1-1.8); ALKALINE PHOSPHATASE 58 U/L (38-133); ALT/SGPT 53 U/L (7-56); AST/SGOT 48 U/L (15-39); BLOOD UREA NITROGEN 9 mg/dL (7-21); CALCIUM 9.2 mg/dL (8.4-10.5); CARBON DIOXIDE 23 mmol/L (21-33); CHLORIDE 107 mmol/L (95-110); GFR AFRICAN-AMERICAN > 60; GLUCOSE,RANDOM 85 mg/dL (70-110); POTASSIUM 3.9 mmol/L (3.6-5.0); SODIUM 141 mmol/L (132-148); TOTAL PROTEIN 7.5 g/dL (5.8-8.3)
[2016-12-01] MEDS: Multivitamin Therapeutic Tab PO SCH (08:10)
[2016-12-01] MEDS: Pantoprazole 40 mg EC Tab PO SCH (08:11)
[2016-12-01] MEDS: Bacitracin Ointment 30 GM TUBE TOP SCH ×2 (09:31→16:03)
[2016-12-01] MEDS: Hydrocortisone 1% Cream (30 GM) TOP SCH ×2 (09:35→16:03)
--- NOTE | 2016-12-01 16:21 | PCM.PYCHPN ---
Psychiatric Progress Note - Psychiatric Progress Note Patient seen today, length of contact: 30min Patient Chief Complaint: "I have to be on benzodiazepines..." Problems Identified/Issues Discussed: Suicide/ homicide prevention, past psychiatric h/o, current psychiatric symptoms , medical problems, risk/benefits and alternatives of medications, medications compliance, coping strategies, substance abuse h/o, relapse prevention, importance of follow up with psychiatrist and therapist, discharge plan. Medical Problems: h/o Cellulitis, Hepatitis C, Endocarditis Diagnostic Results: 11/30/16 08:20 11/30/16 08:20 Lab Results 11/30/16 08:20: Sodium 140, Potassium 3.1 L, Chloride 104, Carbon Dioxide 21, Anion Gap 18, BUN 12, Creatinine 0.7, Est GFR ( Amer) > 60, Est GFR (Non- Af Amer) > 60, Random Glucose 176 H, Calcium 9.4, Total Bilirubin 0.8, AST 59 H , ALT 58 H, Alkaline Phosphatase 75, Total Protein 7.9, Albumin 4.5, Globulin 3.5, Albumin/Globulin Ratio 1.3 11/30/16 08:20: WBC 15.1 H D, RBC 4.43, Hgb 14.5 D, Hct 41.3, MCV 93.2, MCH 32.7, MCHC 35.1, RDW 12.6, Plt Count 334, MPV 9.3, Gran % 76.4 H, Lymph % (Auto ) 13.6 L, [place] % (Auto) 9.7 H, Eos % (Auto) 0.2 L, Baso % (Auto) 0.1, Gran # 11.52 H, Lymph # 2.1, [place] # 1.5 H, Eos # 0.0, Baso # 0.02 11/29/16 09:50: Urine HCG, Qual Negative 11/28/16 14:55: Urine Opiates Screen Positive H, Urine Methadone Screen Negative , Ur Barbiturates Screen Negative, Ur Phencyclidine Scrn Negative, Ur Amphetamines Screen Negative, U Benzodiazepines Scrn Positive H, U Oth Cocaine Metabols Positive H, U Cannabinoids Screen Negative 11/28/16 14:55: Urine Color Yellow, Urine Appearance Clear, Urine pH 6.0, Ur Specific [place] >= 1.030, Urine Protein Negative, Urine Glucose (UA) Negative, Urine Ketones Negative, Urine Blood Negative, Urine Nitrate Negative, Urine Bilirubin Negative, Urine Urobilinogen 0.2, Ur Leukocyte Esterase Negative 11/28/16 13:40: WBC 7.5, RBC 3.76, Hgb 12.0, Hct 35.0 L, MCV 93.1, MCH 31.9, MCHC 34.3, RDW 13.2, Plt Count 293, MPV 8.6, Gran % 49.9 L, Lymph % (Auto) 40.0 H, [place] % (Auto) 7.8 H, Eos % (Auto) 1.9, Baso % (Auto) 0.4, Gran # 3.73, Lymph # 3.0, [place] # 0.6, Eos # 0.1, Baso # 0.03 11/28/16 13:30: Alcohol, Quantitative 289 H 11/28/16 13:30: Salicylates < 1 L, Acetaminophen < 10.0 L 11/28/16 13:30: Sodium 149 H, Potassium 3.4 L, Chloride 113 H, Carbon Dioxide 23 , Anion Gap 16, BUN 11, Creatinine 0.6, Est GFR ( Amer) > 60, Est GFR ( Non-Af Amer) > 60, Random Glucose 90, Calcium 8.3 L, Total Bilirubin < 0.1 L, AST 67 H, ALT 61 H, Alkaline Phosphatase 74, Total Protein 6.9, Albumin 4.0, Globulin 2.8, Albumin/Globulin Ratio 1.4 Vital Signs Temp Pulse Pulse Resp BP Pulse Ox 11/30/16 07:00 97.8 F 89 18 121/77 98 11/30/16 06:18 98 H 121/77 11/29/16 16:11 104 H 130/99 H 11/29/16 11:06 69 11/29/16 09:12 66 16 124/68 99 11/29/16 06:57 97.9 F 66 16 112/87 99 11/29/16 01:47 94 H 16 148/77 100 11/28/16 23:00 90 16 142/76 100 11/28/16 20:30 86 16 142/78 100 11/28/16 19:20 68 12 121/71 98 11/28/16 17:07 91 H 18 114/66 97 11/28/16 15:06 87 18 101/63 95 11/28/16 12:36 98.2 F 102 H 16 113/72 93 L Abnormal Lab Results 12/01/16 12/01/16 07:00 07:00 WBC 9.4 D RBC 4.34 Hgb 14.0 Hct 41.0 MCV 94.5 MCH 32.3 MCHC 34.1 RDW 12.9 Plt Count 303 MPV 9.0 Gran % 64.0 Lymph % (Auto) 25.4 [place] % (Auto) 9.8 H Eos % (Auto) 0.6 L Baso % (Auto) 0.2 Gran # 6.02 Lymph # 2.4 [place] # 0.9 H Eos # 0.1 Baso # 0.02 Sodium 141 Potassium 3.9 Chloride 107 Carbon Dioxide 23 Anion Gap 15 BUN 9 Creatinine 0.8 Est GFR ( Amer) > 60 Est GFR (Non-Af Amer) > 60 Random Glucose 85 Calcium 9.2 Total Bilirubin 1.0 AST 48 H ALT 53 Alkaline Phosphatase 58 Total Protein 7.5 Albumin 4.1 Globulin 3.4 Albumin/Globulin Ratio 1.2 DSM 5 Symptoms Update: Shortly pt is 36 yo female with long h/o polysubstance abuse and dependence, h/o suicidal attempts and psychiatric inpatient hospitalizations, most recent was 04/2015, multiple medical problems, was admitted for evaluation and stabilization of depressive symptoms and worsening of anxiety as well as possible suicidal ideation, pt s/p left wrist self inflicted cut which needed 7x sutures in the ED, initially pt was willing to sign consent for treatment, later in the unit pt was demanding to be discharged because she was not satisfied with medications which this feature writer prescribed. pt was seen today at the tx team meeting room, improved personal hygiene, said that she is very anxious, was demanding to stay on benzodiazepines, pt was explained that ativan will be on tapering dose, pt has first day of BP and Ps which is WNL. but ativan will be tapered down. pt said that she feels depressed, but denied thoughts of harming self or others. as per therapist collaterals pt said she cut her wrist prior this admission because pt's boyfriend was asking pt to have a sexual act which pt was disagreeing to perform. pt denied suicidal attempt during 1:1 session. pt still emotionally labile, at times irritable, demanding, the other minute very charming pt has tendency of asking for more meds, was asking about pain killers, benzos, stimulants. pt presented to be emotionally labile, pressured speech, at times tearful, will add seroquel. Pt compliant with meds, no signs of agitation or aggression. pt tolerates meds well, no side effects observed or reported. AIMS 0, no EPS. DSM 5 Diagnosis: as per history patient has bipolar disorder Rule out PTSD Polysubstance abuse and dependence Substance-induced mood disorder alcohol use disorder r/o Antisocial personality disorder Medication Change: Yes (seroquel and wellbutrin increased) Medical Record Reviewed: Yes Consults ordered or reviewed: medical consult was called, appreciated Mental Status Examination - Cognitive Function Orientation: Person, Place Memory: Intact Attention: Poor Concentration: Poor Association: WNL Fund of Knowledge: WNL - Mood Mood: Depressed (less), Anxious (less) - Affect Affect: Flat - Formal Thought Process Formal Thought Process: No Impairment - Suicidal Ideation Suicidal Ideation: No - Homicidal Ideation Homicidal Ideation: No Goal/Treatment Plan - Goal/Treatment Plan Need for Continued Stay: Remain at risks for inpatient hospitalization, Severe depression anxiety, Discharge may exacerbated symptoms, Severe functional impairment Progress Toward Problem(s) and Goals/Treatment Plan: milieu, structure, supportive therapy Neurontin 600 mg 3 times a day for cravings Ativan 2 mg 4 times a day for possible alcohol withdrawal symptoms, with the plan to taper it down Multivitamins, thiamine, folic acid daily seroquel 150mg amhs for mood stabilization Wellbutrin 100 mg twice a day for depressive symptoms Clonidine 0.1 mg twice a day for opioid withdrawals Symptomatic treatment for possible opioid as well as alcohol withdrawal symptoms Vital signs will be monitoring medical evaluation When necessary medication for possible agitation social science professor evaluation for possible inpatient rehabilitation pt wants to stay in the hospital, rescinded 48hr notice SW evaluation for possible rehab We'll monitor closely. Estimated Date of D/C: 12/06/16
--- NOTE | 2016-12-01 18:20 | CP.PCM.PN ---
<AUBREY ESQUIVEL - Last Filed: 12/01/16 18:16> Subjective - Date & Time of Evaluation Date of Evaluation: 12/01/16 Time of Evaluation: 10:00 - Subjective Subjective: MEDICINE PROGRESS NOTE: Patient seen and assessed at bedside. Patient reports that she still has the same amount of diarrhea but that her N/V have improved. Patient denies any headache, dizziness, changes in her vision, fever, chest pain, shortness of breath, cough, abdominal pain, N/V, constipation, or any urinary symptoms. Objective - Vital Signs/Intake and Output Vital Signs (last 24 hours): Temp Pulse Resp BP Pulse Ox 97.7 F 75 16 108/80 98 12/01/16 07:06 12/01/16 07:06 12/01/16 07:06 12/01/16 07:06 11/30/16 07:00 - Medications Medications: Current Medications Bacitracin (Bacitracin) 0 gm TOP BID [facility] Last Admin: 12/01/16 16:03 Dose: 1 oin Bupropion HCl (Wellbutrin) 100 mg PO BID [facility] Last Admin: 12/01/16 16:06 Dose: 100 mg Clonidine HCl (Catapres) 0.1 mg PO BID PRN PRN Reason: opioid withdrawals, BP >140/90 Last Admin: 12/01/16 16:07 Dose: 0.1 mg Folic Acid (Folic Acid) 1 mg PO DAILY [facility] Last Admin: 12/01/16 08:11 Dose: 1 mg Gabapentin (Neurontin) 600 mg PO TID [facility] PRN Reason: Protocol Last Admin: 12/01/16 17:19 Dose: 600 mg Hydrocortisone (Cortizone 1% Cream) 0 gm TOP BID [facility] Last Admin: 12/01/16 16:03 Dose: 1 cre Ibuprofen (Motrin Tab) 800 mg PO TID PRN PRN Reason: pain >7/10, fever >100 Last Admin: 12/01/16 13:46 Dose: 800 mg Loperamide HCl (Imodium) 2 mg PO QID PRN PRN Reason: Diarrhea Last Admin: 11/30/16 21:00 Dose: 2 mg Lorazepam (Ativan) 2 mg PO QID [facility] PRN Reason: Protocol Last Admin: 12/01/16 17:19 Dose: 2 mg Multivitamins (Thera Tab) 1 tab PO 0800 [facility] Last Admin: 12/01/16 08:10 Dose: 1 tab Nicotine (Nicoderm Cq) 1 patch TD DAILY [facility] Last Admin: 12/01/16 08:10 Dose: 1 patch Ondansetron HCl (Zofran Odt) 4 mg PO Q8H PRN PRN Reason: Nausea/Vomiting Pantoprazole Sodium (Protonix Ec Tab) 40 mg PO 0600 [facility] Last Admin: 12/01/16 08:11 Dose: 40 mg Quetiapine Fumarate (Seroquel) 150 mg PO AMHS [facility] PRN Reason: Protocol Thiamine HCl (Vitamin B1 Tab) 100 mg PO DAILY [facility] Last Admin: 12/01/16 08:11 Dose: 100 mg Trazodone HCl (Desyrel) 50 mg PO HS [facility] Last Admin: 11/30/16 21:00 Dose: 50 mg Ziprasidone (Geodon Inj) 20 mg IM Q6H PRN; Protocol PRN Reason: severe agitation Last Admin: 11/29/16 13:44 Dose: 20 mg - Labs Labs: 12/01/16 07:00 12/01/16 07:00 - Constitutional Appears: Non-toxic, No Acute Distress - Head Exam Head Exam: ATRAUMATIC, NORMOCEPHALIC - Eye Exam Eye Exam: EOMI, Normal appearance, PERRL - ENT Exam ENT Exam: Mucous Membranes Moist, Normal Exam, Normal Oropharynx - Neck Exam Neck Exam: Full ROM, Normal Inspection. absent: Lymphadenopathy, Tenderness, Thyromegaly - Respiratory Exam Respiratory Exam: Clear to Ausculation Bilateral, NORMAL BREATHING PATTERN. absent: Rales, Rhonchi, Wheezes, Respiratory Distress - Cardiovascular Exam Cardiovascular Exam: REGULAR RHYTHM, RRR, +S1, +S2. absent: Tachycardia, Murmur - GI/Abdominal Exam GI & Abdominal Exam: Soft, Normal Bowel Sounds. absent: Distended, Firm, Guarding, Tenderness - Exam Exam: absent: Bladder Distension - Extremities Exam Extremities Exam: Normal Capillary Refill. absent: Calf Tenderness, Pedal Edema Additional comments: L wrist with sutured laceration with no erythema, discharge or edema - Back Exam Back Exam: absent: CVA tenderness (L), CVA tenderness (R), paraspinal tenderness , vertebral tenderness - Neurological Exam Neurological Exam: Alert, Awake, Normal Gait, Oriented x3 - Psychiatric Exam Psychiatric exam: Normal Affect, Normal Mood - Skin Skin Exam: Dry, Intact, Warm Additional comments: Patches/islands of hypopigmented skin scattered on face and upper torso Assessment and Plan - Assessment and Plan (Free Text) Assessment: 36 year old female with a past medical history significant for endocarditis, hepatitis C, polysubstance abuse, alcohol abuse/withdrawal, skin abscesses, bipolar, and antisocial personality disorder who presents to the medicine service for medical evaluation Plan: 1. Leuokocytosis-Resolved -etiologies considered: gastroenteritis, stress reaction or wound infection -WBC at 15.1 on 11/30, with WBC at 7.5 on 11/28 -UA negative for UTI and chest x-ray with no active disease on 11/28 -WBC at 9.4 on 12/01 -Procal at <0.05 -Blood culture, Stool C. Diff, Stool culture pending -Bacitracin and Hydrocortizone creams for L wrist laceration 2. Hypokalemia -K+ at 3.1 on 11/30 -repleted with 40meq of KCl liquid formation -K+ at 3.9 on 12/01 3. History of Colon and Ovarian Cancer -patients father at 51 of CRC and mother diagnosed with ovarian cancer -recommend follow up with PMD for routine cancer screenings based on family history 4. GI/DVT Prophylaxis -Protonix PO/ambulation Patient seen and case discussed with attending, Dr. Ubaldo Hollis. Medicine team will be signing off of this patient. Please feel free to contact medicine team for any further medical evaluation should the need arise. Thank you for allowing us to participate in the care of this patient. <Ubaldo Hollis B - Last Filed: 12/02/16 14:59> Objective - Vital Signs/Intake and Output Vital Signs (last 24 hours): Temp Pulse Resp BP Pulse Ox 97.7 F 78 19 110/78 100 12/02/16 07:00 12/02/16 14:02 12/02/16 07:00 12/02/16 14:02 12/02/16 07:00 - Medications Medications: Current Medications Amitriptyline HCl (Elavil) 25 mg PO HS [facility] Bacitracin (Bacitracin) 0 gm TOP BID [facility] Last Admin: 12/02/16 08:36 Dose: 1 oin Bupropion HCl (Wellbutrin) 100 mg PO BID [facility] Last Admin: 12/02/16 08:36 Dose: 100 mg Clonidine HCl (Catapres) 0.1 mg PO BID PRN PRN Reason: opioid withdrawals, BP >140/90 Last Admin: 12/02/16 14:02 Dose: 0.1 mg Folic Acid (Folic Acid) 1 mg PO DAILY [facility] Last Admin: 12/02/16 08:36 Dose: 1 mg Gabapentin (Neurontin) 600 mg PO TID [facility] PRN Reason: Protocol Last Admin: 12/02/16 12:27 Dose: 600 mg Hydrocortisone (Cortizone 1% Cream) 0 gm TOP BID [facility] Last Admin: 12/02/16 08:37 Dose: 1 cre Ibuprofen (Motrin Tab) 800 mg PO TID PRN PRN Reason: pain >7/10, fever >100 Last Admin: 12/02/16 01:20 Dose: 800 mg Loperamide HCl (Imodium) 2 mg PO QID PRN PRN Reason: Diarrhea Last Admin: 11/30/16 21:00 Dose: 2 mg Lorazepam (Ativan) 2 mg PO QID [facility] PRN Reason: Protocol Last Admin: 12/02/16 12:27 Dose: 2 mg Multivitamins (Thera Tab) 1 tab PO 0800 [facility] Last Admin: 12/02/16 08:36 Dose: 1 tab Nicotine (Nicoderm Cq) 1 patch TD DAILY [facility] Last Admin: 12/02/16 08:34 Dose: 1 patch Ondansetron HCl (Zofran Odt) 4 mg PO Q8H PRN PRN Reason: Nausea/Vomiting Pantoprazole Sodium (Protonix Ec Tab) 40 mg PO 0600 [facility] Last Admin: 12/02/16 07:09 Dose: 40 mg Quetiapine Fumarate (Seroquel) 150 mg PO AMHS [facility] PRN Reason: Protocol Last Admin: 12/02/16 11:20 Dose: Not Given Thiamine HCl (Vitamin B1 Tab) 100 mg PO DAILY [facility] Last Admin: 12/02/16 08:36 Dose: 100 mg Ziprasidone (Geodon Inj) 20 mg IM Q6H PRN; Protocol PRN Reason: severe agitation Last Admin: 11/29/16 13:44 Dose: 20 mg - Labs Labs: 12/01/16 07:00 12/01/16 07:00 Attending/Attestation - Attestation I have personally seen and examined this patient.: Yes I have fully participated in the care of the patient.: Yes I have reviewed all pertinent clinical information, including history, physical exam and plan: Yes Notes (Text): I have seen and examined the patient at bedside. Agree with the above note with the following additions/ exceptions: Briefly this is 36 year old female with history of endocarditis, hepatitis C, polysubstance abuse, alcohol abuse/ withdrawal, tobacco use, vitiligo, skin abscesses, bipolar, and antisocial personality disorder who was admitted to psych floor for suicidal ideation. Manage as per psych. TSH pending. Patient had leukocytosis yesterday however she denies any complaints. Blood culture, urinalysis and CXR is negative. Leukocytsis has resolved. Patient has a clean wound on left wrist. No sign of infection. Will not start any antibiotics at this time. Counselling provided regarding tobacco, alcohol abuse and drug abuse. Upon discharge patient will follow up in [facility]. Dr Ubaldo Hollis
[2016-12-02 07:02] VITALS: O2SAT 100
[2016-12-02] MEDS: Pantoprazole 40 mg EC Tab PO SCH (07:09)
[2016-12-02] MEDS: Multivitamin Therapeutic Tab PO SCH (08:36)
[2016-12-02] MEDS: Bacitracin Ointment 30 GM TUBE TOP SCH ×2 (08:36→15:15)
[2016-12-02] MEDS: Hydrocortisone 1% Cream (30 GM) TOP SCH ×2 (08:37→15:15)
--- NOTE | 2016-12-02 10:34 | PCM.PYCHPN ---
Psychiatric Progress Note - Psychiatric Progress Note Patient seen today, length of contact: 30min Patient Chief Complaint: "I have anxiety, i need to be on benzos" Problems Identified/Issues Discussed: Suicide/ homicide prevention, past psychiatric h/o, current psychiatric symptoms , medical problems, risk/benefits and alternatives of medications, medications compliance, coping strategies, substance abuse h/o, relapse prevention, importance of follow up with psychiatrist and therapist, discharge plan. Medical Problems: h/o Cellulitis, Hepatitis C, Endocarditis Diagnostic Results: 11/30/16 08:20 11/30/16 08:20 Lab Results 11/30/16 08:20: Sodium 140, Potassium 3.1 L, Chloride 104, Carbon Dioxide 21, Anion Gap 18, BUN 12, Creatinine 0.7, Est GFR ( Amer) > 60, Est GFR (Non- Af Amer) > 60, Random Glucose 176 H, Calcium 9.4, Total Bilirubin 0.8, AST 59 H , ALT 58 H, Alkaline Phosphatase 75, Total Protein 7.9, Albumin 4.5, Globulin 3.5, Albumin/Globulin Ratio 1.3 11/30/16 08:20: WBC 15.1 H D, RBC 4.43, Hgb 14.5 D, Hct 41.3, MCV 93.2, MCH 32.7, MCHC 35.1, RDW 12.6, Plt Count 334, MPV 9.3, Gran % 76.4 H, Lymph % (Auto ) 13.6 L, [place] % (Auto) 9.7 H, Eos % (Auto) 0.2 L, Baso % (Auto) 0.1, Gran # 11.52 H, Lymph # 2.1, [place] # 1.5 H, Eos # 0.0, Baso # 0.02 11/29/16 09:50: Urine HCG, Qual Negative 11/28/16 14:55: Urine Opiates Screen Positive H, Urine Methadone Screen Negative , Ur Barbiturates Screen Negative, Ur Phencyclidine Scrn Negative, Ur Amphetamines Screen Negative, U Benzodiazepines Scrn Positive H, U Oth Cocaine Metabols Positive H, U Cannabinoids Screen Negative 11/28/16 14:55: Urine Color Yellow, Urine Appearance Clear, Urine pH 6.0, Ur Specific [place] >= 1.030, Urine Protein Negative, Urine Glucose (UA) Negative, Urine Ketones Negative, Urine Blood Negative, Urine Nitrate Negative, Urine Bilirubin Negative, Urine Urobilinogen 0.2, Ur Leukocyte Esterase Negative 11/28/16 13:40: WBC 7.5, RBC 3.76, Hgb 12.0, Hct 35.0 L, MCV 93.1, MCH 31.9, MCHC 34.3, RDW 13.2, Plt Count 293, MPV 8.6, Gran % 49.9 L, Lymph % (Auto) 40.0 H, [place] % (Auto) 7.8 H, Eos % (Auto) 1.9, Baso % (Auto) 0.4, Gran # 3.73, Lymph # 3.0, [place] # 0.6, Eos # 0.1, Baso # 0.03 11/28/16 13:30: Alcohol, Quantitative 289 H 11/28/16 13:30: Salicylates < 1 L, Acetaminophen < 10.0 L 11/28/16 13:30: Sodium 149 H, Potassium 3.4 L, Chloride 113 H, Carbon Dioxide 23 , Anion Gap 16, BUN 11, Creatinine 0.6, Est GFR ( Amer) > 60, Est GFR ( Non-Af Amer) > 60, Random Glucose 90, Calcium 8.3 L, Total Bilirubin < 0.1 L, AST 67 H, ALT 61 H, Alkaline Phosphatase 74, Total Protein 6.9, Albumin 4.0, Globulin 2.8, Albumin/Globulin Ratio 1.4 Vital Signs Temp Pulse Pulse Resp BP Pulse Ox 11/30/16 07:00 97.8 F 89 18 121/77 98 11/30/16 06:18 98 H 121/77 11/29/16 16:11 104 H 130/99 H 11/29/16 11:06 69 11/29/16 09:12 66 16 124/68 99 11/29/16 06:57 97.9 F 66 16 112/87 99 11/29/16 01:47 94 H 16 148/77 100 11/28/16 23:00 90 16 142/76 100 11/28/16 20:30 86 16 142/78 100 11/28/16 19:20 68 12 121/71 98 11/28/16 17:07 91 H 18 114/66 97 11/28/16 15:06 87 18 101/63 95 11/28/16 12:36 98.2 F 102 H 16 113/72 93 L Abnormal Lab Results 12/01/16 12/01/16 07:00 07:00 WBC 9.4 D RBC 4.34 Hgb 14.0 Hct 41.0 MCV 94.5 MCH 32.3 MCHC 34.1 RDW 12.9 Plt Count 303 MPV 9.0 Gran % 64.0 Lymph % (Auto) 25.4 [place] % (Auto) 9.8 H Eos % (Auto) 0.6 L Baso % (Auto) 0.2 Gran # 6.02 Lymph # 2.4 [place] # 0.9 H Eos # 0.1 Baso # 0.02 Sodium 141 Potassium 3.9 Chloride 107 Carbon Dioxide 23 Anion Gap 15 BUN 9 Creatinine 0.8 Est GFR ( Amer) > 60 Est GFR (Non-Af Amer) > 60 Random Glucose 85 Calcium 9.2 Total Bilirubin 1.0 AST 48 H ALT 53 Alkaline Phosphatase 58 Total Protein 7.5 Albumin 4.1 Globulin 3.4 Albumin/Globulin Ratio 1.2 Temp Pulse Resp BP Pulse Ox 97.7 F 78 19 110/78 100 12/02/16 07:00 12/02/16 07:00 12/02/16 07:00 12/02/16 07:00 12/02/16 07:00 DSM 5 Symptoms Update: Shortly pt is 36 yo female with long h/o polysubstance abuse and dependence, h/o suicidal attempts and psychiatric inpatient hospitalizations, most recent was 04/2015, multiple medical problems, was admitted for evaluation and stabilization of depressive symptoms and worsening of anxiety as well as possible suicidal ideation, pt s/p left wrist self inflicted cut which needed 7x sutures in the ED, initially pt was willing to sign consent for treatment, later in the unit pt was demanding to be discharged because she was not satisfied with medications which this magazine writer prescribed. pt was seen today at the tx team meeting room, improved personal hygiene, pt is very labile, was observed screaming at the front of the nursing station. pt is demanding to be on benzos, pt still has tachycardia, was explained that she is on benzos for alcohol withdrawal and needs taper down, pt was unhappy. pt c/o insomnia, will implement Ellavil for mdd and insomnia, wellbutrin will be d/c. pt said that she feels "little better", denied thoughts of harming self or others. pt has tendency of asking for more meds, was asking about pain killers, benzos, stimulants. pt tolerates meds well, no side effects observed or reported. AIMS 0, no EPS. DSM 5 Diagnosis: as per history patient has bipolar disorder Rule out PTSD Polysubstance abuse and dependence Substance-induced mood disorder alcohol use disorder r/o Antisocial personality disorder Medication Change: Yes (wellbutrin d/c, ellavil added hs) Medical Record Reviewed: Yes Consults ordered or reviewed: medical consult was called, appreciated Mental Status Examination - Cognitive Function Orientation: Person, Place Memory: Intact Attention: Poor (some improvement) Concentration: Poor (some improvement) Association: WNL Fund of Knowledge: WNL - Mood Mood: Depressed (less), Anxious (less) - Affect Affect: Flat - Formal Thought Process Formal Thought Process: No Impairment - Suicidal Ideation Suicidal Ideation: No - Homicidal Ideation Homicidal Ideation: No Goal/Treatment Plan - Goal/Treatment Plan Need for Continued Stay: Remain at risks for inpatient hospitalization, Severe depression anxiety, Discharge may exacerbated symptoms, Severe functional impairment Progress Toward Problem(s) and Goals/Treatment Plan: milieu, structure, supportive therapy Neurontin 600 mg 3 times a day for cravings Ativan 2 mg 4 times a day for possible alcohol withdrawal symptoms, with the plan to taper it down Multivitamins, thiamine, folic acid daily seroquel 150mg amhs for mood stabilization Wellbutrin d/c ellavil 25mg po hs Clonidine 0.1 mg twice a day for opioid withdrawals Symptomatic treatment for possible opioid as well as alcohol withdrawal symptoms Vital signs will be monitoring medical evaluation When necessary medication for possible agitation social work administrator evaluation for possible inpatient rehabilitation pt wants to stay in the hospital, rescinded 48hr notice SW evaluation for possible rehab We'll monitor closely. Estimated Date of D/C: 12/06/16
[2016-12-03] MEDS: Multivitamin Therapeutic Tab PO SCH (08:49)
[2016-12-03] MEDS: Bacitracin Ointment 30 GM TUBE TOP SCH ×2 (08:52→17:15)
[2016-12-03] MEDS: Hydrocortisone 1% Cream (30 GM) TOP SCH ×2 (08:53→17:14)
--- NOTE | 2016-12-03 11:56 | PCM.PYCHPN ---
Psychiatric Progress Note - Psychiatric Progress Note Patient seen today, length of contact: 30min Patient Chief Complaint: "I will not beg you for benzos..." Problems Identified/Issues Discussed: Suicide/ homicide prevention, past psychiatric h/o, current psychiatric symptoms , medical problems, risk/benefits and alternatives of medications, medications compliance, coping strategies, substance abuse h/o, relapse prevention, importance of follow up with psychiatrist and therapist, discharge plan. Medical Problems: h/o Cellulitis, Hepatitis C, Endocarditis Diagnostic Results: 11/30/16 08:20 11/30/16 08:20 Lab Results 11/30/16 08:20: Sodium 140, Potassium 3.1 L, Chloride 104, Carbon Dioxide 21, Anion Gap 18, BUN 12, Creatinine 0.7, Est GFR ( Amer) > 60, Est GFR (Non- Af Amer) > 60, Random Glucose 176 H, Calcium 9.4, Total Bilirubin 0.8, AST 59 H , ALT 58 H, Alkaline Phosphatase 75, Total Protein 7.9, Albumin 4.5, Globulin 3.5, Albumin/Globulin Ratio 1.3 11/30/16 08:20: WBC 15.1 H D, RBC 4.43, Hgb 14.5 D, Hct 41.3, MCV 93.2, MCH 32.7, MCHC 35.1, RDW 12.6, Plt Count 334, MPV 9.3, Gran % 76.4 H, Lymph % (Auto ) 13.6 L, [place] % (Auto) 9.7 H, Eos % (Auto) 0.2 L, Baso % (Auto) 0.1, Gran # 11.52 H, Lymph # 2.1, [place] # 1.5 H, Eos # 0.0, Baso # 0.02 11/29/16 09:50: Urine HCG, Qual Negative 11/28/16 14:55: Urine Opiates Screen Positive H, Urine Methadone Screen Negative , Ur Barbiturates Screen Negative, Ur Phencyclidine Scrn Negative, Ur Amphetamines Screen Negative, U Benzodiazepines Scrn Positive H, U Oth Cocaine Metabols Positive H, U Cannabinoids Screen Negative 11/28/16 14:55: Urine Color Yellow, Urine Appearance Clear, Urine pH 6.0, Ur Specific [place] >= 1.030, Urine Protein Negative, Urine Glucose (UA) Negative, Urine Ketones Negative, Urine Blood Negative, Urine Nitrate Negative, Urine Bilirubin Negative, Urine Urobilinogen 0.2, Ur Leukocyte Esterase Negative 11/28/16 13:40: WBC 7.5, RBC 3.76, Hgb 12.0, Hct 35.0 L, MCV 93.1, MCH 31.9, MCHC 34.3, RDW 13.2, Plt Count 293, MPV 8.6, Gran % 49.9 L, Lymph % (Auto) 40.0 H, [place] % (Auto) 7.8 H, Eos % (Auto) 1.9, Baso % (Auto) 0.4, Gran # 3.73, Lymph # 3.0, [place] # 0.6, Eos # 0.1, Baso # 0.03 11/28/16 13:30: Alcohol, Quantitative 289 H 11/28/16 13:30: Salicylates < 1 L, Acetaminophen < 10.0 L 11/28/16 13:30: Sodium 149 H, Potassium 3.4 L, Chloride 113 H, Carbon Dioxide 23 , Anion Gap 16, BUN 11, Creatinine 0.6, Est GFR ( Amer) > 60, Est GFR ( Non-Af Amer) > 60, Random Glucose 90, Calcium 8.3 L, Total Bilirubin < 0.1 L, AST 67 H, ALT 61 H, Alkaline Phosphatase 74, Total Protein 6.9, Albumin 4.0, Globulin 2.8, Albumin/Globulin Ratio 1.4 Vital Signs Temp Pulse Pulse Resp BP Pulse Ox 11/30/16 07:00 97.8 F 89 18 121/77 98 11/30/16 06:18 98 H 121/77 11/29/16 16:11 104 H 130/99 H 11/29/16 11:06 69 11/29/16 09:12 66 16 124/68 99 11/29/16 06:57 97.9 F 66 16 112/87 99 11/29/16 01:47 94 H 16 148/77 100 11/28/16 23:00 90 16 142/76 100 11/28/16 20:30 86 16 142/78 100 11/28/16 19:20 68 12 121/71 98 11/28/16 17:07 91 H 18 114/66 97 11/28/16 15:06 87 18 101/63 95 11/28/16 12:36 98.2 F 102 H 16 113/72 93 L Abnormal Lab Results 12/01/16 12/01/16 07:00 07:00 WBC 9.4 D RBC 4.34 Hgb 14.0 Hct 41.0 MCV 94.5 MCH 32.3 MCHC 34.1 RDW 12.9 Plt Count 303 MPV 9.0 Gran % 64.0 Lymph % (Auto) 25.4 [place] % (Auto) 9.8 H Eos % (Auto) 0.6 L Baso % (Auto) 0.2 Gran # 6.02 Lymph # 2.4 [place] # 0.9 H Eos # 0.1 Baso # 0.02 Sodium 141 Potassium 3.9 Chloride 107 Carbon Dioxide 23 Anion Gap 15 BUN 9 Creatinine 0.8 Est GFR ( Amer) > 60 Est GFR (Non-Af Amer) > 60 Random Glucose 85 Calcium 9.2 Total Bilirubin 1.0 AST 48 H ALT 53 Alkaline Phosphatase 58 Total Protein 7.5 Albumin 4.1 Globulin 3.4 Albumin/Globulin Ratio 1.2 Temp Pulse Resp BP Pulse Ox 97.7 F 78 19 110/78 100 12/02/16 07:00 12/02/16 07:00 12/02/16 07:00 12/02/16 07:00 12/02/16 07:00 DSM 5 Symptoms Update: Shortly pt is 36 yo female with long h/o polysubstance abuse and dependence, h/o suicidal attempts and psychiatric inpatient hospitalizations, most recent was 04/2015, multiple medical problems, was admitted for evaluation and stabilization of depressive symptoms and worsening of anxiety as well as possible suicidal ideation, pt s/p left wrist self inflicted cut which needed 7x sutures in the ED, initially pt was willing to sign consent for treatment, later in the unit pt was demanding to be discharged because she was not satisfied with medications which this screenplay writer prescribed. pt was seen today at the tx team meeting room, improved personal hygiene, pt was sleepy, pt still demanding to be on benzos and stimulants, this screenplay writer explained in details that these type of meds will be not helpful for the pt, pt was angry, said "I will not beg you to prescribe it for me...", left a room. pt tolerates meds well, no side effects observed or reported, slept better on Elavil pt said that she feels "little better", denied thoughts of harming self or others. pt tolerates meds well, no side effects observed or reported. AIMS 0, no EPS. as per staff, pt has no behavioral incidents, no agitation. DSM 5 Diagnosis: as per history patient has bipolar disorder Rule out PTSD Polysubstance abuse and dependence Substance-induced mood disorder alcohol use disorder r/o Antisocial personality disorder Medication Change: Yes (wellbutrin d/c, ellavil added hs) Medical Record Reviewed: Yes Consults ordered or reviewed: medical consult was called, appreciated Mental Status Examination - Cognitive Function Orientation: Person, Place Memory: Intact Attention: Poor (some improvement) Concentration: Poor (some improvement) Association: WNL Fund of Knowledge: WNL - Mood Mood: Depressed (less), Anxious (less) - Affect Affect: Constricted (but reactive, mood congruent) - Speech Speech: Appropriate - Formal Thought Process Formal Thought Process: No Impairment - Suicidal Ideation Suicidal Ideation: No - Homicidal Ideation Homicidal Ideation: No Goal/Treatment Plan - Goal/Treatment Plan Need for Continued Stay: Remain at risks for inpatient hospitalization, Severe depression anxiety, Discharge may exacerbated symptoms, Severe functional impairment Progress Toward Problem(s) and Goals/Treatment Plan: milieu, structure, supportive therapy Neurontin 600 mg 3 times a day for cravings Ativan 2 mg 4 times a day for possible alcohol withdrawal symptoms, with the plan to taper it down Multivitamins, thiamine, folic acid daily seroquel 150mg amhs for mood stabilization Wellbutrin d/c ellavil 25mg po hs Clonidine 0.1 mg twice a day for opioid withdrawals Symptomatic treatment for possible opioid as well as alcohol withdrawal symptoms Vital signs will be monitoring medical evaluation When necessary medication for possible agitation neonatal social worker evaluation for possible inpatient rehabilitation pt wants to stay in the hospital, rescinded 48hr notice SW evaluation for possible rehab We'll monitor closely. Estimated Date of D/C: 12/06/16
[2016-12-04] MEDS: Pantoprazole 40 mg EC Tab PO SCH (06:29)
[2016-12-04 06:36] VITALS: BP 104/70; PULSE 66; RESP 18; TEMP 97.8
[2016-12-04] MEDS: Multivitamin Therapeutic Tab PO SCH (08:18)
[2016-12-04] MEDS: Hydrocortisone 1% Cream (30 GM) TOP SCH (08:19)
[2016-12-04] MEDS: Bacitracin Ointment 30 GM TUBE TOP SCH (08:19)
--- NOTE | 2016-12-04 15:03 | PCM.PYCHDC ---
Mental Status Examination - Mental Status Examination Orientation: Person, Place, Situation, Time Memory: Intact Mood: Neutral Affect: Broad (and mood congruent) Speech: Appropriate Attention: WNL Concentration: WNL Association: WNL Fund of Knowledge: WNL Formal Thought Process: No Impairment Description of patient's judgement and insight: Pt has improved insight into mental and medical illness, pt was compliant with medications and unit rules and regulations, pt was going to groups, was calm, cooperative, socially appropriate, no behavioral incidents, no agitation, no aggression. Psychotic Thoughts and Behaviors: Pt denied v/a/t hallucinations, denied paranoid ideations, pt does not appear to be psychotic, and thought process is goal directed. Suicidal Ideation: No Current Homicidal Ideation?: No Plan: pt adamantly denied thoughts of harming self or others denied intent or plan. Discharge Summary - Discharge Note Reason for Hospitalization: pt was admitted s/p self inflicted laceration of her left wrist, worsening of depression. Psychiatric History (includes Medical, Family, Personal Hx): see HPI Laboratory Data: 12/01/16 07:00 12/01/16 07:00 Lab Results 12/03/16 09:10: TSH 3rd Generation 0.71 12/01/16 07:00: Sodium 141, Potassium 3.9, Chloride 107, Carbon Dioxide 23, Anion Gap 15, BUN 9, Creatinine 0.8, Est GFR ( Amer) > 60, Est GFR (Non- Af Amer) > 60, Random Glucose 85, Calcium 9.2, Total Bilirubin 1.0, AST 48 H, ALT 53, Alkaline Phosphatase 58, Total Protein 7.5, Albumin 4.1, Globulin 3.4, Albumin/Globulin Ratio 1.2 12/01/16 07:00: WBC 9.4 D, RBC 4.34, Hgb 14.0, Hct 41.0, MCV 94.5, MCH 32.3, MCHC 34.1, RDW 12.9, Plt Count 303, MPV 9.0, Gran % 64.0, Lymph % (Auto) 25.4, [place] % (Auto) 9.8 H, Eos % (Auto) 0.6 L, Baso % (Auto) 0.2, Gran # 6.02, Lymph # 2.4, [place] # 0.9 H, Eos # 0.1, Baso # 0.02 12/01/16 07:00: Procalcitonin < 0.05 L 11/30/16 08:20: Sodium 140, Potassium 3.1 L, Chloride 104, Carbon Dioxide 21, Anion Gap 18, BUN 12, Creatinine 0.7, Est GFR ( Amer) > 60, Est GFR (Non- Af Amer) > 60, Random Glucose 176 H, Calcium 9.4, Total Bilirubin 0.8, AST 59 H , ALT 58 H, Alkaline Phosphatase 75, Total Protein 7.9, Albumin 4.5, Globulin 3.5, Albumin/Globulin Ratio 1.3 11/30/16 08:20: WBC 15.1 H D, RBC 4.43, Hgb 14.5 D, Hct 41.3, MCV 93.2, MCH 32.7, MCHC 35.1, RDW 12.6, Plt Count 334, MPV 9.3, Gran % 76.4 H, Lymph % (Auto ) 13.6 L, [place] % (Auto) 9.7 H, Eos % (Auto) 0.2 L, Baso % (Auto) 0.1, Gran # 11.52 H, Lymph # 2.1, [place] # 1.5 H, Eos # 0.0, Baso # 0.02 11/29/16 09:50: Urine HCG, Qual Negative 11/28/16 14:55: Urine Opiates Screen Positive H, Urine Methadone Screen Negative , Ur Barbiturates Screen Negative, Ur Phencyclidine Scrn Negative, Ur Amphetamines Screen Negative, U Benzodiazepines Scrn Positive H, U Oth Cocaine Metabols Positive H, U Cannabinoids Screen Negative 11/28/16 14:55: Urine Color Yellow, Urine Appearance Clear, Urine pH 6.0, Ur Specific [place] >= 1.030, Urine Protein Negative, Urine Glucose (UA) Negative, Urine Ketones Negative, Urine Blood Negative, Urine Nitrate Negative, Urine Bilirubin Negative, Urine Urobilinogen 0.2, Ur Leukocyte Esterase Negative 11/28/16 13:40: WBC 7.5, RBC 3.76, Hgb 12.0, Hct 35.0 L, MCV 93.1, MCH 31.9, MCHC 34.3, RDW 13.2, Plt Count 293, MPV 8.6, Gran % 49.9 L, Lymph % (Auto) 40.0 H, [place] % (Auto) 7.8 H, Eos % (Auto) 1.9, Baso % (Auto) 0.4, Gran # 3.73, Lymph # 3.0, [place] # 0.6, Eos # 0.1, Baso # 0.03 11/28/16 13:30: Alcohol, Quantitative 289 H 11/28/16 13:30: Salicylates < 1 L, Acetaminophen < 10.0 L 11/28/16 13:30: Sodium 149 H, Potassium 3.4 L, Chloride 113 H, Carbon Dioxide 23 , Anion Gap 16, BUN 11, Creatinine 0.6, Est GFR ( Amer) > 60, Est GFR ( Non-Af Amer) > 60, Random Glucose 90, Calcium 8.3 L, Total Bilirubin < 0.1 L, AST 67 H, ALT 61 H, Alkaline Phosphatase 74, Total Protein 6.9, Albumin 4.0, Globulin 2.8, Albumin/Globulin Ratio 1.4 Vital Signs Temp Pulse Pulse Resp BP Pulse Ox 12/04/16 06:35 97.8 F 66 18 104/70 12/03/16 16:40 93 H 130/92 H 12/03/16 10:19 71 126/86 12/02/16 16:42 106 H 108/74 12/02/16 14:02 78 110/78 12/02/16 07:00 97.7 F 78 19 110/78 100 12/02/16 01:19 107 H 109/76 12/01/16 16:00 94 H 132/83 12/01/16 07:06 97.7 F 75 16 108/80 11/30/16 15:44 106 H 123/81 11/30/16 15:00 106 H 123/81 11/30/16 07:00 97.8 F 89 18 121/77 98 11/30/16 06:18 98 H 121/77 11/29/16 16:11 104 H 130/99 H 11/29/16 11:06 69 11/29/16 09:12 66 16 124/68 99 11/29/16 06:57 97.9 F 66 16 112/87 99 11/29/16 01:47 94 H 16 148/77 100 11/28/16 23:00 90 16 142/76 100 11/28/16 20:30 86 16 142/78 100 08/22/17 19:20 68 12 121/71 98 11/28/16 17:07 91 H 18 114/66 97 11/28/16 15:06 87 18 101/63 95 11/28/16 12:36 98.2 F 102 H 16 113/72 93 L Consultations:: List each consultation separately and include: 1. Reason for request. 2. Findings. 3. Follow-up Consultations: medical consult was called, appreciated pt is aware to come back to the ED within 10days after sutures placed to remove it. Summary of Hospital Course include:: 1. Description of specific treatment plan utilized for patients during their course of treatmen. 2. Summarize the time- course for resolution of acute symptoms and/or regressed behaviors. 3. Describe issues identified and worked on during hospitalization. 4. Describe medication utilized. 5. Describe medical problems identified and treated. 6. Reassessment of suicide risk Summary of Hospital Course: Shortly pt is 36 yo female with long h/o polysubstance abuse and dependence, h/o suicidal attempts and psychiatric inpatient hospitalizations, most recent was 04/2015, multiple medical problems, was admitted for evaluation and stabilization of depressive symptoms and worsening of anxiety as well as possible suicidal ideation, pt s/p left wrist self inflicted cut which needed 7x sutures in the ED, initially pt was willing to sign consent for treatment, later in the unit pt was demanding to be discharged because she was not satisfied with medications which this freelance writer prescribed. at the initial evaluation patient presented to have acceptable personal hygiene , has good ADLs. during a first interaction pt said that: she was not using IV drugs for past year, patient reported that she was drinking on daily basis about 1 pint of vodka, patient reported that she was using heroin about 10bags a day, snorting it. pt said that she had a verbal altercation with her boyfriend after what patient was feeling "suicidal", patient reported that she went to the bathroom, find a razor blade, cut herself with a hope to . Patient reported that her intent was to kill herself but at the same time patient said "I was high on drugs'. Patient reported that razor blade was new and that is why she cut herself so deeply. Patient also reported for past month she was thinking about to end up her life on daily basis, and at the moment of the interview patient said that she has no emotions about the fact that she is still alive. Pt has h/ o verbalizing thoughts of harming self in order to get admitted to the unit, but this time pt cut herself. pt needs at least few days of observation in order to find out if pt is suicidal or was acting on her impulses while was intoxicated. during this hospitalization pt admitted that she was angry and refused to give some sexual favor to her boyfriend and that is why she cut her wrist (as per recreational therapist). 11/28/16 13:40 11/28/16 13:30 Lab Results 11/29/16 09:50: Urine HCG, Qual Negative 11/28/16 14:55: Urine Opiates Screen Positive H, Urine Methadone Screen Negative , Ur Barbiturates Screen Negative, Ur Phencyclidine Scrn Negative, Ur Amphetamines Screen Negative, U Benzodiazepines Scrn Positive H, U Oth Cocaine Metabols Positive H, U Cannabinoids Screen Negative 11/28/16 14:55: Urine Color Yellow, Urine Appearance Clear, Urine pH 6.0, Ur Specific [place] >= 1.030, Urine Protein Negative, Urine Glucose (UA) Negative, Urine Ketones Negative, Urine Blood Negative, Urine Nitrate Negative, Urine Bilirubin Negative, Urine Urobilinogen 0.2, Ur Leukocyte Esterase Negative 11/28/16 13:40: WBC 7.5, RBC 3.76, Hgb 12.0, Hct 35.0 L, MCV 93.1, MCH 31.9, MCHC 34.3, RDW 13.2, Plt Count 293, MPV 8.6, Gran % 49.9 L, Lymph % (Auto) 40.0 H, [place] % (Auto) 7.8 H, Eos % (Auto) 1.9, Baso % (Auto) 0.4, Gran # 3.73, Lymph # 3.0, [place] # 0.6, Eos # 0.1, Baso # 0.03 11/28/16 13:30: Alcohol, Quantitative 289 H 11/28/16 13:30: Salicylates < 1 L, Acetaminophen < 10.0 L 11/28/16 13:30: Sodium 149 H, Potassium 3.4 L, Chloride 113 H, Carbon Dioxide 23 , Anion Gap 16, BUN 11, Creatinine 0.6, Est GFR ( Amer) > 60, Est GFR ( Non-Af Amer) > 60, Random Glucose 90, Calcium 8.3 L, Total Bilirubin < 0.1 L, AST 67 H, ALT 61 H, Alkaline Phosphatase 74, Total Protein 6.9, Albumin 4.0, Globulin 2.8, Albumin/Globulin Ratio 1.4 Vital Signs Temp Pulse Pulse Resp BP Pulse Ox 11/29/16 11:06 69 11/29/16 09:12 66 16 124/68 99 11/29/16 06:57 97.9 F 66 16 112/87 99 11/29/16 01:47 94 H 16 148/77 100 11/28/16 23:00 90 16 142/76 100 11/28/16 20:30 86 16 142/78 100 11/28/16 19:20 68 12 121/71 98 11/28/16 17:07 91 H 18 114/66 97 11/28/16 15:06 87 18 101/63 95 11/28/16 12:36 98.2 F 102 H 16 113/72 93 L at the day of admission pt signed 48 hour notice, screening process from [facility] initiated, pt was deeply sleeping during evaluation, but later on pt changed her mind and decided to stay in the hospital. pt was stabilized on the following meds: Neurontin 600 mg 3 times a day for cravings Ativan 2 mg 4 times a day for possible alcohol withdrawal symptoms, then it was changed for Klonopin 2mg po bid Multivitamins, thiamine, folic acid daily seroquel 150mg amhs for mood stabilization Wellbutrin was initiated, but then was d/c as per pt's request ellavil 25mg po hs for depression and insomnia Clonidine 0.1 mg twice a day for opioid withdrawals Symptomatic treatment for possible opioid as well as alcohol withdrawal symptoms Vital signs monitored, mild tachycardia which improved medical evaluation Over the course of this hospitalization pt was attending groups, pt also had medication management, had therapeutic milieu. Overall pt improved significantly, pt's affect became brighter, pt was less depressed, has realistic future oriented plans, pt also does not appear to be psychotic, or anxious, pt was socially appropriate, no behavioral issues, pts insight improved as well and soon pt deemed to be ready for discharge. At the time of the discharge pt denied been depressed, denied thoughts of harming self or others, denied psychotic symptoms, and pt does not appeared to be psychotic, denied been anxious, was considered to pose no threat to self or others, will be following up at [facility], information about follow up appointment, time and address provided to the pt, it is patient responsibility to follow up with outpatient clinic, PMD as well as specialists (see note for more detailed information). In case pt will need to obtain results of studies pending at discharge pt was provided with contact information of Psychiatric Inpatient unit [phone] as well as Medical Record Department [phone]. Nicotine patch was offered Counseling about smoking and alcohol cessation provided AA meetings as well as [facility] [place] information was provided by the pt was provided with prescriptions for all of medications (please see medication reconciliation form) Pt was educated about safety plan in case of worsening of symptoms or in case of suicidal or homicidal ideation call 911 or go to the nearest ER, also was educated to take meds as prescribed and stay away from drugs, pt verbalized understanding. - Diagnosis (1) Bipolar 1 disorder Current Visit: No Status: Chronic Priority: Medium (2) Polysubstance dependence Current Visit: Yes Status: Chronic Priority: High (3) PTSD (post-traumatic stress disorder) Current Visit: No Status: Chronic Priority: Medium (4) Hepatitis C Current Visit: No Status: Chronic - Final Diagnosis (DSM 5) Condition upon Discharge: FAIR Disposition: HOME/ ROUTINE Follow-up Treatment Plan: At the time of the discharge pt denied been depressed, denied thoughts of harming self or others, denied psychotic symptoms, and pt does not appeared to be psychotic, denied been anxious, was considered to pose no threat to self or others, will be following up at [facility], information about follow up appointment, time and address provided to the pt, it is patient responsibility to follow up with outpatient clinic, PMD as well as specialists (see SW note for more detailed information). In case pt will need to obtain results of studies pending at discharge pt was provided with contact information of Psychiatric Inpatient unit [phone] as well as Medical Record Department [phone]. Nicotine patch was offered Counseling about smoking and alcohol cessation provided AA meetings as well as [facility] [place] information was provided by the pt was provided with prescriptions for all of medications (please see medication reconciliation form) Pt was educated about safety plan in case of worsening of symptoms or in case of suicidal or homicidal ideation call 911 or go to the nearest ER, also was educated to take meds as prescribed and stay away from drugs, pt verbalized understanding. Prescriptions/Medication Reconciliation: Amitriptyline [Elavil] 25 mg PO HS #14 tab Bacitracin Ointment [Bacitracin] 1 gm TOP BID #1 Clonazepam [Klonopin] 2 mg PO BID #30 tablet Folic Acid 1 mg PO DAILY #14 tab Gabapentin [Neurontin] 600 mg PO TID #60 tab Hydrocortisone 1% Cream [Cortizone 1% Cream] 1 gm TOP BID #1 Ibuprofen [Motrin Tab] 800 mg PO TID PRN #60 tab PRN Reason: pain >7/10, fever >100 Multivitamin Therapeutic Tab [Thera Tab] 1 tab PO 0800 #14 tab Nicotine 21 mg/24 hr [Nicoderm Cq] 1 patch TD DAILY #14 patch QUEtiapine [SEROquel XR] 300 mg PO HS #14 ter Thiamine [Vitamin B1 Tab] 100 mg PO DAILY #14 tab - Smoking Cessation Smoking Cessation Medication prescribed: Yes
== END 2016-12-04 16:54 | disposition home or self-care (01) | DRG 430 ==
LOC: ED 12:17 → EROBSV 12:40 → OBSVTOIN 12:40 → UNDOADMOB 12:40 → PSYC 12:40 → EROBSV 11-29 08:53 → INTOOBSV 11-29 08:53 → OBSVTOIN 11-29 08:53
PROVIDERS: ADMIT Psychiatry & Neurology Psychiatry; ATTEND Psychiatry & Neurology Psychiatry
PROC: 0HQEXZZ Repair Left Lower Arm Skin, External Approach (ICD-10-PCS; principal; 2016-11-28)
DX: F31.9 Bipolar disorder, unspecified (principal); I38 Endocarditis, valve unspecified; F10.24 Alcohol dependence with alcohol-induced mood disorder; F14.20 Cocaine dependence, uncomplicated; F11.20 Opioid dependence, uncomplicated; B19.20 Unspecified viral hepatitis C without hepatic coma; E87.6 Hypokalemia; X78.8XXA Intentional self-harm by other sharp object, initial encounter; S61.512A Laceration without foreign body of left wrist, initial encounter; F43.10 Post-traumatic stress disorder, unspecified; L80 Vitiligo; F60.2 Antisocial personality disorder; F17.210 Nicotine dependence, cigarettes, uncomplicated; K52.9 Noninfective gastroenteritis and colitis, unspecified; Y90.8 Blood alcohol level of 240 mg/100 ml or more

== ENCOUNTER 2016-12-19 09:59 | Emergency (ER) | payer MEDICAID ==
[2016-12-19 10:03] VITALS: BMI 23.5
[2016-12-19 10:07] VITALS: TEMP 97.6
--- NOTE | 2016-12-19 10:28 | ED PDOC ---
Arrival/HPI - General Chief Complaint: Suture/Staple Removal Time Seen by Provider: 12/19/16 10:28 Historian: Patient - History of Present Illness Narrative History of Present Illness (Text): 12/19/16 10:28 This 36 yo female with pmh heroin abuse, presents to this ED requesting sutures removal. Patient has laceration repaired x 3 weeks ago. She denies new complains. Time/Duration: Other (3 weeks) Context: Home Past Medical History - Provider Review Nursing Documentation Reviewed: Yes - Infectious Disease Hx of Infectious Diseases: None - Tetanus Immunization Tetanus Immunization: Unknown - Cardiac Hx Cardiac Disorders: No - Pulmonary Hx Respiratory Disorders: No - Neurological Hx Neurological Disorder: No - HEENT Hx HEENT Disorder: No - Renal Hx Renal Disorder: No - Endocrine/Metabolic Hx Endocrine Disorders: No - Hematological/Oncological Hx Blood Disorders: No - Integumentary Hx Cellulitis: Yes Other/Comment: Abscess on hands, and feet - Musculoskeletal/Rheumatological Hx Musculoskeletal Disorders: No - Gastrointestinal Hx Gastrointestinal Disorders: No - Genitourinary/Gynecological Hx Genitourinary Disorders: No - Psychiatric Hx Psychophysiologic Disorder: Yes Hx Anxiety: Yes Hx Bipolar Disorder: Yes Hx Depression: Yes Hx Substance Use: Yes - Past Surgical History Past Surgical History: No Previous - Surgical History Hx Appendectomy: No Hx Carotid Endarterectomy: No Hx Cholecystectomy: No Hx Coronary Artery Bypass Graft: No Hx Coronary Stent: No Hx Tonsillectomy: No - Anesthesia Hx Anesthesia: No Hx Anesthesia Reactions: No Hx Malignant Hyperthermia: No - Suicidal Assessment Feels Threatened In Home Enviroment: No Family/Social History - Physician Review Nursing Documentation Reviewed: Yes Family/Social History: Other (non-contributory) Smoking Status: Smoker Currrent Status Unknown Hx Alcohol Use: Yes Hx Substance Use: Yes Substance used: Heroin, Cocaine, Benzo Allergies/Home Meds Allergies/Adverse Reactions: Allergies haloperidol lactate [From Haldol] Allergy (Intermediate, Verified 12/19/16 10:03 ) SHORTNESS OF BREATH haloperidol Allergy (Unknown, Verified 12/19/16 10:03) UNKNOWN Home Medications: Home Meds Medication Instructions Recorded Confirmed buPROPion [Wellbutrin] 1 tab PO DAILY 12/19/16 12/19/16 Review of Systems - Review of Systems Constitutional: Normal. absent: Fatigue, Weight Change, Fevers, Night Sweats Eyes: Normal ENT: Normal Respiratory: Normal Cardiovascular: Normal Gastrointestinal: Normal Genitourinary Female: Normal Musculoskeletal: Normal Skin: Other (see hpi) Neurological: Normal Endocrine: Normal Hemo/Lymphatic: Normal Psychiatric: Normal Physical Exam Vital Signs Temp Pulse Resp BP Pulse Ox 12/19/16 10:06 97.6 F 88 18 126/83 96 Temperature: Afebrile Blood Pressure: Normal Pulse: Regular Respiratory Rate: Normal Appearance: Positive for: Well-Appearing, Non-Toxic, Comfortable Pain Distress: None Mental Status: Positive for: Alert and Oriented X 3 - Systems Exam Head: Present: Atraumatic, Normocephalic Pupils: Present: PERRL Extroacular Muscles: Present: EOMI Conjunctiva: Present: Normal Mouth: Present: Moist Mucous Membranes Neck: Present: Normal Range of Motion Upper Extremity: Present: Normal ROM, NORMAL PULSES, Neurovascularly Intact, Capillary Refill < 2s, Other ((+) left palmar wrist healing wound with [address] No dehiscense, drainage or erythema). No: Cyanosis, Edema, Tenderness, Swelling, Erythema, Temperature Abnormalties Disposition/Present on Arrival - Present on Arrival Any Indicators Present on Arrival: No History of DVT/PE: No History of Uncontrolled Diabetes: No Urinary Catheter: No History of Decub. Ulcer: No History Surgical Site Infection Following: None - Disposition Have Diagnosis and Disposition been Completed?: Yes Diagnosis: Encounter for wound re-check, Encounter for removal of sutures Disposition: HOME/ ROUTINE Disposition Time: 10:38 Patient Plan: Discharge Condition: GOOD Discharge Instructions (ExitCare): Stitches Removal (ED) Additional Instructions: Call private doctor for follow up visit in 1-2 days. Continue with home medication. Return to emergency if new symptoms may arise Referrals: [facility] [Outside] - Follow up with primary [facility] [Outside] - Follow up with primary Forms: [email or web address] ([place])
[2016-12-19 11:02] VITALS: BP 125/80; PULSE 82; RESP 17; O2SAT 99
== END 2016-12-19 11:01 | disposition home or self-care (01) ==
LOC: ED 09:59
DX: Z48.02 Encounter for removal of sutures (principal)

== ENCOUNTER 2017-06-04 12:31 | Inpatient (IN) | payer MEDICAID, OTHER ==
[2017-06-04 12:32] VITALS: BMI 23.5
--- NOTE | 2017-06-04 13:13 | ED PDOC ---
Arrival/HPI - General Chief Complaint: Psychiatric Evaluation Time Seen by Provider: 06/04/17 12:32 Historian: Patient - History of Present Illness Narrative History of Present Illness (Text): 06/04/17 13:12 A 36 year old female, whose past medical history includes heroin abuse, was brought in by EMS to the emergency department for evaluation of depression and suicidal ideation. Patient reports she has a plan to cut wrist, hasn't done so yet. Patient denies any other complaints at this time. Symptom Onset: Sudden Symptom Course: Unchanged Activities at Onset: Rest Context: Home Past Medical History - Provider Review Nursing Documentation Reviewed: Yes - Infectious Disease Hx of Infectious Diseases: None - Tetanus Immunization Tetanus Immunization: Unknown - Cardiac Hx Cardiac Disorders: No - Pulmonary Hx Respiratory Disorders: No - Neurological Hx Neurological Disorder: No - HEENT Hx HEENT Disorder: No - Renal Hx Renal Disorder: No - Endocrine/Metabolic Hx Endocrine Disorders: No - Hematological/Oncological Hx Hepatitis C: Yes - Integumentary Hx Cellulitis: Yes Other/Comment: Abscess on hands, and feet - Musculoskeletal/Rheumatological Hx Musculoskeletal Disorders: No - Gastrointestinal Hx Gastrointestinal Disorders: No - Genitourinary/Gynecological Hx Genitourinary Disorders: No - Psychiatric Hx Psychophysiologic Disorder: Yes Hx Anxiety: Yes Hx Bipolar Disorder: Yes Hx Depression: Yes Hx Substance Use: Yes - Past Surgical History Past Surgical History: No Previous - Surgical History Hx Appendectomy: No Hx Carotid Endarterectomy: No Hx Cholecystectomy: No Hx Coronary Artery Bypass Graft: No Hx Coronary Stent: No Hx Tonsillectomy: No - Anesthesia Hx Anesthesia: No Hx Anesthesia Reactions: No Hx Malignant Hyperthermia: No - Suicidal Assessment Feels Threatened In Home Enviroment: No Family/Social History - Physician Review Nursing Documentation Reviewed: Yes Family/Social History: No Known Family HX Smoking Status: Smoker Currrent Status Unknown Hx Alcohol Use: Yes Hx Substance Use: Yes Substance used: Heroin, Cocaine, Benzo Allergies/Home Meds Allergies/Adverse Reactions: Allergies haloperidol lactate [From Haldol] Allergy (Intermediate, Verified 12/19/16 10:03 ) SHORTNESS OF BREATH haloperidol Allergy (Unknown, Verified 12/19/16 10:03) UNKNOWN Home Medications: Home Meds Medication Instructions Recorded Confirmed buPROPion [Wellbutrin] 1 tab PO DAILY 12/19/16 12/19/16 Review of Systems - Physician Review All systems were reviewed & negative as marked: Yes - Review of Systems Constitutional: absent: Fevers Psychiatric: Depression, Suicidal Ideation Physical Exam Vital Signs Reviewed: Yes Vital Signs Pulse Resp BP Pulse Ox 06/04/17 15:32 80 18 100/65 99 Appearance: Positive for: Comfortable Pain Distress: None Mental Status: Positive for: Alert and Oriented X 3 - Systems Exam Head: Present: Atraumatic, Normocephalic Pupils: Present: PERRL Extroacular Muscles: Present: EOMI Conjunctiva: Present: Normal Mouth: Present: Moist Mucous Membranes Neck: Present: Normal Range of Motion Respiratory/Chest: Present: Clear to Auscultation, Good Air Exchange. No: Respiratory Distress, Accessory Muscle Use Cardiovascular: Present: Regular Rate and Rhythm, Normal S1, S2. No: Murmurs Abdomen: Present: Normal Bowel Sounds. No: Tenderness, Distention, Peritoneal Signs Back: Present: Normal Inspection Upper Extremity: Present: Normal Inspection. No: Cyanosis, Edema Lower Extremity: Present: Normal Inspection. No: Edema Neurological: Present: GCS=15, CN II-XII Intact, Speech Normal Skin: Present: Warm, Dry, Normal Color, Other (track waddell). No: Rashes Psychiatric: Present: Alert, Oriented x 3, Normal Insight, Normal Concentration Medical Decision Making ED Course and Treatment: 06/04/17 13:11 Impression: A 36 year old female with depression and suicidal ideation. Plan: -- EKG -- Chest xray -- labs -- Urinalysis -- Reassess and disposition Progress Notes: Patient is looking for food upon arrival. later reports cough. cxr shows ?rll infiltate. ct added. CT Chest Without Intravenous Contrast IMPRESSION: 1. At the right pulmonary apex anteriorly, there is a 7 mm nodule. Within the right upper lobe on series 3 image 45, there is a small consolidation measuring 1.4 cm in diameter. Multiple groundglass density infiltrates are visualized within the lungs bilaterally. These infiltrates are suggestive of an infectious or inflammatory etiology, although malignancy cannot be excluded. Clinical correlation and a follow-up CT in one month are recommended. 2. There is enlarged right axillary lymph node measuring 1.8 cm in length. A borderline enlarged left axillary lymph node is visualized. Multiple mediastinal lymph nodes are identified, a few which are borderline enlarged. 3. Incidental/non-acute findings are described above. Dictated and Authenticated by: Vladimir Wilcox MD 06/04/2017 8:00 PM Eastern Time ([place] & [place]) 06/04/17 20:[address] Bunch, who agrees and accepts patient to be admitted. 06/04/17 22:17 - Lab Interpretations Lab Results: 06/04/17 13:37 06/04/17 13:37 Lab Results 06/04/17 15:50: Urine Opiates Screen Positive H, Urine Methadone Screen Positive H, Ur Barbiturates Screen Negative, Ur Phencyclidine Scrn Negative, Ur Amphetamines Screen Negative, U Benzodiazepines Scrn Negative, U Oth Cocaine Metabols Positive H, U Cannabinoids Screen Negative 06/04/17 15:50: Urine Color Yellow, Urine Appearance Clear, Urine pH 7.0, Ur Specific [place] 1.015, Urine Protein Negative, Urine Glucose (UA) Negative, Urine Ketones Trace H, Urine Blood Negative, Urine Nitrate Negative, Urine Bilirubin Negative, Urine Urobilinogen 2.0 H, Ur Leukocyte Esterase Small H, Urine RBC 0 - 2, Urine WBC 2 - 5, Ur Epithelial Cells 1 - 3, Urine Bacteria Small, Urine HCG, Qual Negative 06/04/17 13:37: Phosphorus 3.7, Magnesium 2.0, Triglycerides 38, Cholesterol 142 , LDL Cholesterol Direct 61, HDL Cholesterol 61 H 06/04/17 13:37: Alcohol, Quantitative < 10 06/04/17 13:37: Salicylates < 1 L, Acetaminophen < 10.0 L 06/04/17 13:37: Sodium 137, Potassium 3.7, Chloride 100, Carbon Dioxide 32, Anion Gap 9 L, BUN 12, Creatinine 0.6 L, Est GFR ( Amer) > 60, Est GFR ( Non-Af Amer) > 60, Random Glucose 110, Calcium 9.4, Total Bilirubin 0.7, AST 79 H, ALT 43, Alkaline Phosphatase 79, Total Protein 6.9, Albumin 3.7, Globulin 3.2 , Albumin/Globulin Ratio 1.1 06/04/17 13:37: WBC 9.7, RBC 3.42 L, Hgb 10.4 L D, Hct 31.4 L, MCV 91.8, MCH 30.4, MCHC 33.1, RDW 14.2, Plt Count 321, MPV 8.5, Gran % 73.6 H, Lymph % (Auto ) 11.7 L, [place] % (Auto) 13.4 H, Eos % (Auto) 1.1 L, Baso % (Auto) 0.2, Gran # 7.10 H, Lymph # (Auto) 1.1 L, [place] # (Auto) 1.3 H, Eos # (Auto) 0.1, Baso # ( Auto) 0.02 I have reviewed the lab results: Yes - RAD Interpretation Radiology Orders: 06/04/17 12:58 CHEST PORTABLE [RAD] Stat 06/04/17 17:27 CHEST W/O CONTRAST [CT] Stat - EKG Interpretation Interpreted by ED Physician: Yes Type: 12 lead EKG - Medication Orders Current Medication Orders: Amitriptyline HCl (Elavil) 25 mg PO HS MICHAEL Bupropion HCl (Wellbutrin) 75 mg PO DAILY MICHAEL Clonazepam (Klonopin) 2 mg PO BID MICHAEL Folic Acid (Folic Acid) 1 mg PO DAILY MICHAEL Gabapentin (Neurontin) 600 mg PO TID MICHAEL PRN Reason: Protocol Ceftriaxone Sodium (Rocephin 1 Gram Ivpb) 1 gm in 100 mls @ 100 mls/hr IVPB DAILY MICHAEL PRN Reason: Protocol Azithromycin (Zithromax 500mg In Ns) 500 mg in 250 mls @ 167 mls/hr IVPB DAILY MICHAEL PRN Reason: Protocol Multivitamins/Vitamin C 10 ml/Thiamine HCl 100 mg/ Folic Acid 1 mg/ Sodium Chloride 1,011.2 mls @ 100 mls/hr IV .[id number] ONE Stop: 06/05/17 07:38 Lorazepam (Ativan) 2 mg IVP Q4H PRN; Protocol PRN Reason: Symptoms of alcohol withdrawl Multivitamins (Thera Tab) 1 tab PO 0800 MICHAEL Nicotine (Nicoderm Cq) 1 patch TD DAILY MICHAEL Pantoprazole Sodium (Protonix Ec Tab) 20 mg PO 0600 MICHAEL Quetiapine Fumarate (Seroquel Xr) 300 mg PO HS MICHAEL PRN Reason: Protocol Thiamine HCl (Vitamin B1 Tab) 100 mg PO DAILY MICHAEL Discontinued Medications Levofloxacin/Dextrose (Levaquin 750mg) 750 mg in 150 mls @ 100 mls/hr IVPB STAT STA PRN Reason: Protocol Stop: 06/04/17 21:32 - Scribe Statement The provider has reviewed the documentation as recorded by the Sisi Rosen Provider Scribe Attestation: All medical record entries made by the Sisi were at my direction and personally dictated by me. I have reviewed the chart and agree that the record accurately reflects my personal performance of the history, physical exam, medical decision making, and the department course for this patient. I have also personally directed, reviewed, and agree with the discharge instructions and disposition. Disposition/Present on Arrival - Present on Arrival Any Indicators Present on Arrival: No History of DVT/PE: No History of Uncontrolled Diabetes: No Urinary Catheter: No History of Decub. Ulcer: No History Surgical Site Infection Following: None - Disposition Have Diagnosis and Disposition been Completed?: Yes Diagnosis: Depression, Pneumonia Disposition: HOSPITALIZED Disposition Time: 03:00 Condition: STABLE
[2017-06-04 13:50] LABS: BASO # 0.02 K/mm3 (0.0-2.0); BASO % 0.2 % (0.0-3.0); EOS # 0.1 (0.0-0.7); EOS % 1.1 % (1.5-5.0); GRAN # 7.1 (1.4-6.5); GRAN % 73.6 % (50.0-68.0); HEMOGLOBIN 10.4 g/dL (12.0-16.0); LYMPH # 1.1 (1.2-3.4); LYMPH % 11.7 % (22.0-35.0); MEAN CELL VOLUME 91.8 fl (80.0-105.0); MEAN CORPUSCULAR HEMOGLOBIN 30.4 pg (25.0-35.0); MEAN CORPUSCULAR HGB CONC 33.1 g/dl (31.0-37.0); MEAN PLATELET VOLUME 8.5 fl (7.0-11.0); MONO # 1.3 (0.1-0.6); MONO % 13.4 % (1.0-6.0); RBC 3.42 10^6/uL (3.5-6.1); RED CELL DISTRIBUTION WIDTH 14.2 % (11.5-14.5); WHITE BLOOD COUNT 9.7 10^3/ul (4.5-11.0)
[2017-06-04 14:03] LABS: ALB/GLOB RATIO 1.1 (1.1-1.8); ALBUMIN 3.7 g/dL (3.0-4.8); ALT/SGPT 43 U/L (7-56); AST/SGOT 79 U/L (14-36); BLOOD UREA NITROGEN 12 mg/dL (7-21); CALCIUM 9.4 mg/dL (8.4-10.5); GFR AFRICAN-AMERICAN > 60; GFR NON-AFRICAN AMERICAN > 60
[2017-06-04 14:04] LABS: ACETAMINOPHEN < 10.0 ug/ml (10.0-20.0); SALICYLATE < 1 mg/dL (2.0-20.0)
[2017-06-04 16:29] LABS: URINE BILIRUBIN NEGATIVE (NEGATIVE); URINE BLOOD NEGATIVE (NEGATIVE); URINE GLUCOSE (UA) NEGATIVE (NEGATIVE); URINE LEUKOCYTE ESTERASE SMALL Leu/uL (NEGATIVE); URINE NITRATE NEGATIVE (NEGATIVE); URINE PROTEIN NEGATIVE mg/dL (<30 mg/dL)
[2017-06-04 16:35] LABS: HCG,QUALITATIVE URINE NEGATIVE (NEGATIVE)
[2017-06-04 16:41] LABS: URINE APPEARANCE CLEAR (CLEAR); URINE COLOR YELLOW (YELLOW)
[2017-06-04 16:47] LABS: BARBITURATES, UR NEGATIVE (NEGATIVE); PHENCYCLIDINE, UR NEGATIVE (NEGATIVE)
[2017-06-04 16:50] LABS: URINE RBC 0 - 2 /hpf (0-2)
[2017-06-04 16:51] LABS: URINE BACTERIA SMALL (NEG)
[2017-06-04 16:53] LABS: BENZODIAZEPINES, UR NEGATIVE (NEGATIVE); OPIATES, UR POSITIVE (NEGATIVE)
--- NOTE | 2017-06-04 20:00 | CT ---
EXAM: CT Chest Without Intravenous Contrast EXAM DATE/TIME: 06/04/2017 5:27 PM CLINICAL HISTORY: The patient age is 36 years old and is female; Signs and symptoms; Cough; Symptoms not specified; Additional info: Cough R/O pna Facility exam id and description: Ct chests chest w/o contrast TECHNIQUE: Axial computed tomography images of the chest without intravenous contrast. All CT scans at this facility use one or more dose reduction techniques, viz.: automated exposure control; ma/kV adjustment per patient size (including targeted exams where dose is matched to indication; i.e. head); or iterative reconstruction technique. Coronal and sagittal reformatted images were created and reviewed. COMPARISON: DX - CHEST PORTABLE 2017-06-04 16:11 FINDINGS: Lungs: At the right pulmonary apex anteriorly, there is a 7 mm nodule. Within the right upper lobe on series 3 image 45, there is a small consolidation measuring 1.4 cm in diameter. Multiple additional groundglass density infiltrates or lesions are visualized within the right lung. Patchy groundglass density infiltrates are identified within the left lung. These infiltrates are suggestive of an infectious or inflammatory etiology, although malignancy cannot be excluded. There is biapical parenchymal scarring. Pleural space: No pneumothorax. No significant effusion. Heart: No cardiomegaly. No significant pericardial effusion. Mediastinum: There is a small hiatal hernia. Bones/joints: No acute fracture. Vasculature: No thoracic aortic aneurysm. Lymph nodes: There is enlarged right axillary lymph node measuring 1.8 cm in length. A borderline enlarged left axillary lymph node is visualized. Multiple mediastinal lymph nodes are identified, a few which are borderline enlarged. In the precarinal region, this measures 1.2 cm in AP diameter. Evaluation for hilar lymph nodes is limited by the absence of intravenous contrast. IMPRESSION: 1. At the right pulmonary apex anteriorly, there is a 7 mm nodule. Within the right upper lobe on series 3 image 45, there is a small consolidation measuring 1.4 cm in diameter. Multiple groundglass density infiltrates are visualized within the lungs bilaterally. These infiltrates are suggestive of an infectious or inflammatory etiology, although malignancy cannot be excluded. Clinical correlation and a follow-up CT in one month are recommended. 2. There is enlarged right axillary lymph node measuring 1.8 cm in length. A borderline enlarged left axillary lymph node is visualized. Multiple mediastinal lymph nodes are identified, a few which are borderline enlarged. 3. Incidental/non-acute findings are described above.
[2017-06-04] MEDS ORDERED: levoFLOXacin 750 mg in D5W 750 MG/150 ML BAG IVPB STA (20:03)
[2017-06-04] MEDS ORDERED: Multivitamin (MVI) 10 ML, Thiamine 100 MG, Folic Acid 1 MG in Sodium Chloride 0.9% 1,00... IV ONE (21:32)
--- NOTE | 2017-06-04 21:50 | CP.PCM.HP ---
<Anita Dela Cruz - Last Filed: 06/04/17 22:43> History of Present Illness - History of Present Illness History of Present Illness: Anita Dela Cruz, PGY1, H&P for Dr Bunch: CC: depressed/suicidal ideation A 36 year old female, with PMH polysubstance use, endocarditis, hep C, alcohol use, multiple suicide attempts, psych disorders, presents for depression for past few months. Pt states that she is homeless, has been feeling down, and is have suicidal ideations with a plan to cut her wrist. Pt is quite drowsy/ intoxicated on exam, states that she "will talk in the morning." Pt reports a dry cough, subjective fevers for past few days. Denies nasal/chest congestion, body aches, sore throat, headache, chest pain, sob, weight loss, hemoptysis, urinary symptoms, leg swelling. In ED, vitals stable, anemia hgb 10.4 (prev 12-14 baseline), CT chest showed bilateral infiltrates, received levaquin IV x1. 12 point ROS obtained and neg, except as noted per HPI. PMH: Endocarditis, hepatitis C, polysubstance abuse, alcohol abuse/withdrawal, skin abscesses, bipolar, multiple suicide attempts, and antisocial personality disorder PSH: Bilateral rods placed in legs with ankle repair Family: Mother-Ovarian Cancer, Father-CRC Social: Currently smoking 2 packs per day with 40 year pack smoking history, currently drinks one liter of vodka daily, and currently uses IV heroine and cocaine; lives with her boyfriend in [place] Allergies: Haldol Home Medications: As per MAR Present on Admission - Present on Admission Any Indicators Present on Admission: No History of DVT/PE: No History of Uncontrolled Diabetes: No Urinary Catheter: No Decubitus Ulcer Present: No Review of Systems - Review of Systems All systems: reviewed and no additional remarkable complaints except Review of Systems: as per hpi Past Patient History - Infectious Disease Hx of Infectious Diseases: None - Tetanus Immunizations Tetanus Immunization: Unknown - Past Medical History & Family History Past Medical History?: Yes - Past Social History Smoking Status: Smoker Currrent Status Unknown - CARDIAC Hx Cardiac Disorders: No - PULMONARY Hx Respiratory Disorders: No - NEUROLOGICAL Hx Neurological Disorder: No - HEENT Hx HEENT Problems: No - RENAL Hx Chronic Kidney Disease: No - ENDOCRINE/METABOLIC Hx Endocrine Disorders: No - HEMATOLOGICAL/ONCOLOGICAL Hx Hepatitis C: Yes - INTEGUMENTARY Hx Cellulitis: Yes Other/Comment: Abscess on hands, and feet - MUSCULOSKELETAL/RHEUMATOLOGICAL Hx Musculoskeletal Disorders: No - GASTROINTESTINAL Hx Gastrointestinal Disorders: No - GENITOURINARY/GYNECOLOGICAL Hx Genitourinary Disorders: No - PSYCHIATRIC Hx Psychophysiologic Disorder: Yes Hx Anxiety: Yes Hx Bipolar Disorder: Yes Hx Depression: Yes Hx Substance Use: Yes - SURGICAL HISTORY Hx Appendectomy: No Hx Carotid Endarterectomy: No Hx Cholecystectomy: No Hx Coronary Artery Bypass Graft: No Hx Coronary Stent: No Hx Tonsillectomy: No - ANESTHESIA Hx Anesthesia: No Hx Anesthesia Reactions: No Hx Malignant Hyperthermia: No Meds Allergies/Adverse Reactions: Allergies Allergy/AdvReac Type Severity Reaction Status Date / Time haloperidol lactate Allergy Intermediate SHORTNESS Verified 12/19/16 10:03 [From Haldol] OF BREATH haloperidol Allergy Unknown UNKNOWN Verified 12/19/16 10:03 Physical Exam - Constitutional Appears: Unkempt, Other (drowsy) - Head Exam Head Exam: ATRAUMATIC, NORMOCEPHALIC - Eye Exam Eye Exam: EOMI, PERRL. absent: Conjunctival injection, Nystagmus, Scleral icterus Pupil Exam: PERRL. absent: Fixed, Irregular, Unequal - ENT Exam ENT Exam: Mucous Membranes Moist - Neck Exam Neck exam: Positive for: Full Rom - Respiratory Exam Respiratory Exam: Decreased Breath Sounds. absent: Accessory Muscle Use, Chest Wall Tenderness, Rales, Rhonchi, Wheezes, Stridor - Cardiovascular Exam Cardiovascular Exam: RRR, +S1, +S2. absent: Systolic Murmur - GI/Abdominal Exam GI & Abdominal Exam: Normal Bowel Sounds, Soft. absent: Distended, Guarding, Hernia, Organomegaly, Rebound, Rigid, Tenderness - Extremities Exam Extremities exam: Positive for: normal inspection. Negative for: calf tenderness, pedal edema - Back Exam Back exam: NORMAL INSPECTION - Neurological Exam Neurological exam: Alert, Oriented x3 - Psychiatric Exam Psychiatric exam: Normal Affect Additional comments: sleepy - Skin Skin Exam: Dry, Normal Color, Warm Results - Vital Signs Recent Vital Signs: Last Vital Signs Temp Pulse 80 06/04/17 15:32 Resp 18 06/04/17 15:32 BP 100/65 06/04/17 15:32 Pulse Ox 99 06/04/17 15:32 - Labs Result Diagrams: 06/04/17 13:37 06/04/17 13:37 Assessment & Plan - Assessment and Plan (Free Text) Assessment: 36 year old female with a past medical history significant for endocarditis, hepatitis C, polysubstance abuse, alcohol abuse/withdrawal, skin abscesses, bipolar, and antisocial personality disorder, presents for depression and suicidal ideations, found to have bilateral infiltrates on chest CT: Suicidal Ideation/depression: - 1:1 watch - Psych consult. F/u recs. Bilateral infiltrates: 2/2 CAP - Given Levaquin in ED. - Chest CT showed: 7 mm nodule at the right pulmonary apex. Within the right upper lobe, there is a small consolidation measuring 1.4 cm in diameter. Multiple groundglass density infiltrates are visualized within the lungs bilaterally. These infiltrates are suggestive of an infectious or inflammatory etiology, although malignancy cannot be excluded. Clinical correlation and a follow-up CT in one month are recommended. There is enlarged right axillary lymph node measuring 1.8 cm in length. A borderline enlarged left axillary lymph node is visualized. Multiple mediastinal lymph nodes are identified, a few which are borderline enlarged. - F/u procal - Afebrile, no leukocytosis Pulmonary nodule: - Chest CT showed: 7 mm nodule at the right pulmonary apex. There is enlarged right axillary lymph node measuring 1.8 cm in length. A borderline enlarged left axillary lymph node is visualized. Multiple mediastinal lymph nodes are identified, a few which are borderline enlarged. - No previous chest CT found on records. - Obtain previous records - ask in AM once pt is sober - Will need follow up CT in 6-12 months. - Pulm consulted. F/u recs. Anemia: Normocytic, 2/2 likely ACD vs mixed - Hgb 10.4 on admission, previous admissions range hgb 12-14 - obtain iron studies, vitamin B12, folate - daily cbc - Cont to monitor Alcohol abuse/withdrawal: - CIWA - Seizure/fall/aspiration precautions - Ativan prn - Banana bag @ 100 - thiamine, folic acid Hx of cocaine/methadone use: - UDS pos opiates, methadone, cocaine - Advised cessation - F/u in AM for pt's methadone clinic: dosage Hx of bipolar/depression/psych: - C/w home psych meds Hx of tobacco use: - advised cessation - nicotine patch PPX: Pepcid, Lovenox Diet: Regular Discussed with Dr Bunch. - Date & Time Date: 06/05/17 Time: 01:00 <Alivia RENTERIA,Luke - Last Filed: 06/05/17 11:36> Results - Vital Signs Recent Vital Signs: Last Vital Signs Temp 98 F 06/04/17 23:10 Pulse 88 06/04/17 23:10 Resp 18 06/04/17 23:10 BP 129/70 06/04/17 23:10 Pulse Ox 100 06/04/17 22:20 - Labs Result Diagrams: 06/04/17 13:37 06/04/17 13:37 Labs: Laboratory Results - last 24 hr 06/04/17 20:50 Influenza Typ A,B (EIA) Negative for flu a/b Attending/Attestation - Attestation I have personally seen and examined this patient.: Yes I have fully participated in the care of the patient.: Yes I have reviewed all pertinent clinical information: Yes Notes (Text): -I agree with the above H&P completed by the resident physician with the following additions and/or changes: -The patient is a 36 year old woman with a history of endocarditis, hep C, polysubstance abuse, chronic alcohol abuse, bipolar disorder, antisocial personality disorder and depression who is being admitted for suicidal ideation and community acquired pneumonia (incidentally noted on CXR). Of note, patient is a very poor historian. Also of note, patient noted to have a 7mm pulmonary nodule on CT-chest (alongside associated lymphadenopathy), and therefore a pulmonary consult has been placed. 1:1 sitter and psych consult also ordered. In addition, empiric treatment for community acquired PNA with IV Ceftriaxone and Azithromycin has been initiated.
[2017-06-04] MEDS: QUEtiapine 300 mg XR Tab PO SCH (22:22)
--- NOTE | 2017-06-05 04:22 | CP.PCM.PN ---
Subjective - Date & Time of Evaluation Date of Evaluation: 06/05/17 Time of Evaluation: 04:21 - Subjective Subjective: One attempt in ER to insert heparin lock was unsuccessful. Went to attempt again when she was on floors, She refused. Objective - Vital Signs/Intake and Output Vital Signs (last 24 hours): Temp Pulse Resp BP Pulse Ox 98 F 88 18 129/70 100 06/04/17 23:10 06/04/17 23:10 06/04/17 23:10 06/04/17 23:10 06/04/17 22:20 - Medications Medications: Current Medications Amitriptyline HCl (Elavil) 25 mg PO HS [facility] Last Admin: 06/04/17 22:22 Dose: 25 mg Bupropion HCl (Wellbutrin) 75 mg PO DAILY [facility] Clonazepam (Klonopin) 2 mg PO BID [facility] Enoxaparin Sodium (Lovenox) 30 mg SC Q12H [facility] PRN Reason: Protocol Folic Acid (Folic Acid) 1 mg PO DAILY [facility] Gabapentin (Neurontin) 600 mg PO TID [facility] PRN Reason: Protocol Ceftriaxone Sodium (Rocephin 1 Gram Ivpb) 1 gm in 100 mls @ 100 mls/hr IVPB DAILY [facility] PRN Reason: Protocol Azithromycin (Zithromax 500mg In Ns) 500 mg in 250 mls @ 167 mls/hr IVPB DAILY [facility] PRN Reason: Protocol Multivitamins/Vitamin C 10 ml/Thiamine HCl 100 mg/ Folic Acid 1 mg/ Sodium Chloride 1,011.2 mls @ 100 mls/hr IV .[id number] ONE Stop: 06/05/17 07:38 Lorazepam (Ativan) 2 mg IVP Q4H PRN; Protocol PRN Reason: Symptoms of alcohol withdrawl Multivitamins (Thera Tab) 1 tab PO 0800 [facility] Nicotine (Nicoderm Cq) 1 patch TD DAILY [facility] Pantoprazole Sodium (Protonix Ec Tab) 20 mg PO 0600 [facility] Quetiapine Fumarate (Seroquel Xr) 300 mg PO HS [facility] PRN Reason: Protocol Last Admin: 06/04/17 22:22 Dose: 300 mg Thiamine HCl (Vitamin B1 Tab) 100 mg PO DAILY [facility]
--- NOTE | 2017-06-05 07:20 | RAD ---
HISTORY: pysch COMPARISON: Portable chest 11/28/2016. FINDINGS: Patient slightly rotated toward the left. LUNGS: No active pulmonary disease. PLEURA: No significant pleural effusion identified, no pneumothorax apparent. CARDIOVASCULAR: Normal. OSSEOUS STRUCTURES: No significant abnormalities. VISUALIZED UPPER ABDOMEN: Normal. OTHER FINDINGS: None. IMPRESSION: No interval acute cardiopulmonary disease appreciated.
[2017-06-05] MEDS: Enoxaparin 30 mg Syringe SC SCH ×3 (08:12→23:31)
[2017-06-05] MEDS: Pantoprazole 20 mg EC Tab PO SCH ×2 (08:13→11:44)
[2017-06-05] MEDS ORDERED: Azithromycin 500MG/NS 250ml 500 MG/250 ML BAG IVPB SCH ×2 (10:00→11:15)
[2017-06-05] MEDS ORDERED: CLONAZEPAM 2 MG PO SCH (10:00)
[2017-06-05] MEDS ORDERED: cefTRIAXone 1 gm 1 GM/100 ML BAG IVPB SCH (10:00)
--- NOTE | 2017-06-05 11:12 | CP.PCM.PN ---
<Jodie Odonnell - Last Filed: 06/05/17 11:09> Subjective - Date & Time of Evaluation Date of Evaluation: 06/05/17 Time of Evaluation: 11:09 - Subjective Subjective: Progress note for Dr. Thomas Patient seen and examined at bedside more lethargic in the morning than when seen with attending. Patient refused IV line, blood draws and medications this morning. Patient states she needs her methadone 170mg daily before she goes into withdrawal. Objective - Vital Signs/Intake and Output Vital Signs (last 24 hours): Temp Pulse Resp BP Pulse Ox 98 F 88 18 129/70 100 06/04/17 23:10 06/04/17 23:10 06/04/17 23:10 06/04/17 23:10 06/04/17 22:20 - Medications Medications: Current Medications Amitriptyline HCl (Elavil) 25 mg PO HS [facility] Last Admin: 06/04/17 22:22 Dose: 25 mg Bupropion HCl (Wellbutrin) 75 mg PO DAILY [facility] Clonazepam (Klonopin) 2 mg PO BID [facility] Enoxaparin Sodium (Lovenox) 30 mg SC Q12H [facility] PRN Reason: Protocol Last Admin: 06/05/17 08:12 Dose: Not Given Folic Acid (Folic Acid) 1 mg PO DAILY [facility] Gabapentin (Neurontin) 600 mg PO TID [facility] PRN Reason: Protocol Ceftriaxone Sodium (Rocephin 1 Gram Ivpb) 1 gm in 100 mls @ 100 mls/hr IVPB DAILY [facility] PRN Reason: Protocol Stop: 06/11/17 10:59 Azithromycin (Zithromax 500mg In Ns) 500 mg in 250 mls @ 167 mls/hr IVPB DAILY [facility] PRN Reason: Protocol Stop: 06/11/17 11:30 Lorazepam (Ativan) 2 mg IVP Q4H PRN; Protocol PRN Reason: Symptoms of alcohol withdrawl Methadone HCl (Methadone) 80 mg PO ONCE ONE Stop: 06/05/17 11:08 Multivitamins (Thera Tab) 1 tab PO 0800 [facility] Nicotine (Nicoderm Cq) 1 patch TD DAILY [facility] Pantoprazole Sodium (Protonix Ec Tab) 20 mg PO 0600 [facility] Last Admin: 06/05/17 08:13 Dose: Not Given Quetiapine Fumarate (Seroquel Xr) 300 mg PO HS [facility] PRN Reason: Protocol Last Admin: 06/04/17 22:22 Dose: 300 mg Thiamine HCl (Vitamin B1 Tab) 100 mg PO DAILY [facility]HAEL - Constitutional Appears: Non-toxic - Head Exam Head Exam: ATRAUMATIC, NORMAL INSPECTION, NORMOCEPHALIC - Eye Exam Eye Exam: EOMI, Normal appearance Pupil Exam: PERRL - ENT Exam ENT Exam: Mucous Membranes Moist, Normal Exam - Neck Exam Neck Exam: Full ROM, Normal Inspection - Respiratory Exam Respiratory Exam: Clear to Ausculation Bilateral, NORMAL BREATHING PATTERN. absent: Accessory Muscle Use, Decreased Breath Sounds, Respiratory Distress - Cardiovascular Exam Cardiovascular Exam: REGULAR RHYTHM, +S1, +S2. absent: Bradycardia, Tachycardia - GI/Abdominal Exam GI & Abdominal Exam: Soft, Normal Bowel Sounds. absent: Tenderness - Extremities Exam Extremities Exam: Full ROM, Normal Inspection. absent: Pedal Edema Additional comments: right dorsal surface of hand has escar, no signs of erythema, induration, drainage - Back Exam Back Exam: Full ROM, NORMAL INSPECTION - Neurological Exam Neurological Exam: Alert, Awake, CN II-XII Intact, Normal Gait, Oriented x3 - Psychiatric Exam Psychiatric exam: Normal Affect, Normal Mood - Skin Skin Exam: Dry, Intact, Normal Color, Warm Assessment and Plan - Assessment and Plan (Free Text) Assessment: 36 year old female with a past medical history significant for endocarditis, hepatitis C, polysubstance abuse, alcohol abuse/withdrawal, skin abscesses, bipolar, and antisocial personality disorder, presents for depression and suicidal ideations, found to have bilateral infiltrates on chest CT. Suicidal Ideation/depression: - 1:1 watch - Psych consult. F/u recs. Bilateral infiltrates: 2/2 CAP - Given Levaquin in ED. - Chest CT showed: 7 mm nodule at the right pulmonary apex. Within the right upper lobe, there is a small consolidation measuring 1.4 cm in diameter. Multiple groundglass density infiltrates are visualized within the lungs bilaterally. These infiltrates are suggestive of an infectious or inflammatory etiology, although malignancy cannot be excluded. Clinical correlation and a follow-up CT in one month are recommended. There is enlarged right axillary lymph node measuring 1.8 cm in length. A borderline enlarged left axillary lymph node is visualized. Multiple mediastinal lymph nodes are identified, a few which are borderline enlarged. - F/u procal - Afebrile, no leukocytosis Pulmonary Consult: follow up CT with contrast. Patient had a dry CT chest done while in ED. continue IV antibiotics for CAP, discharge on oral antibiotics or admit to psychiatry on oral antibiotics. Pulmonary nodule: - Chest CT showed: 7 mm nodule at the right pulmonary apex. There is enlarged right axillary lymph node measuring 1.8 cm in length. A borderline enlarged left axillary lymph node is visualized. Multiple mediastinal lymph nodes are identified, a few which are borderline enlarged. - No previous chest CT found on records. - Obtain previous records - ask in AM once pt is sober - Will need follow up CT in 6-12 months. - Pulmonary Consult: follow up CT with contrast. Patient had a dry CT chest done while in ED. continue IV antibiotics for CAP, discharge on oral antibiotics or admit to psychiatry on oral antibiotics. Anemia: Normocytic, 2/2 likely ACD vs mixed - Hgb 10.4 on admission, previous admissions range hgb 12-14 - obtain iron studies, vitamin B12, folate - daily cbc - Cont to monitor Alcohol abuse/withdrawal: - CIWA - Seizure/fall/aspiration precautions - Ativan prn - Banana bag @ 100 - thiamine, folic acid Hx of cocaine/methadone use: - UDS pos opiates, methadone, cocaine - Advised cessation - [facility] [address] - 170mg Q daily with last administration 06/02 and patient was sent home with a bottle 06/03 Hx of bipolar/depression/psych: - C/w home psych meds - Psych Eval: patient is cleared to admit to psychiatry when patient is on oral medication and also when a bed is available. Hx of tobacco use: - advised cessation - nicotine patch PPX: Pepcid, Lovenox Diet: Regular discussed with Dr. Martha Odonnell, DO PGY1 <Hien Thomas - Last Filed: 06/05/17 15:38> Objective - Vital Signs/Intake and Output Vital Signs (last 24 hours): Temp Pulse Resp BP Pulse Ox 98 F 88 18 129/70 100 06/04/17 23:10 06/04/17 23:10 06/04/17 23:10 06/04/17 23:10 06/04/17 22:20 - Medications Medications: Current Medications Amitriptyline HCl (Elavil) 25 mg PO HS [facility] Last Admin: 06/04/17 22:22 Dose: 25 mg Bupropion HCl (Wellbutrin) 75 mg PO DAILY [facility] Last Admin: 06/05/17 11:44 Dose: 75 mg Clonazepam (Klonopin) 2 mg PO BID [facility] Last Admin: 06/05/17 11:43 Dose: 2 mg Enoxaparin Sodium (Lovenox) 30 mg SC Q12H [facility] PRN Reason: Protocol Last Admin: 06/05/17 11:45 Dose: 30 mg Folic Acid (Folic Acid) 1 mg PO DAILY [facility] Last Admin: 06/05/17 11:44 Dose: 1 mg Gabapentin (Neurontin) 600 mg PO TID [facility] PRN Reason: Protocol Last Admin: 06/05/17 11:43 Dose: 600 mg Ceftriaxone Sodium (Rocephin 1 Gram Ivpb) 1 gm in 100 mls @ 100 mls/hr IVPB DAILY [facility] PRN Reason: Protocol Stop: 06/11/17 10:59 Last Admin: 06/05/17 12:49 Dose: 100 mls/hr Azithromycin (Zithromax 500mg In Ns) 500 mg in 250 mls @ 167 mls/hr IVPB DAILY [facility] PRN Reason: Protocol Stop: 06/11/17 11:30 Last Admin: 06/05/17 13:32 Dose: 167 mls/hr Lorazepam (Ativan) 2 mg IVP Q4H PRN; Protocol PRN Reason: Symptoms of alcohol withdrawl Multivitamins (Thera Tab) 1 tab PO 0800 [facility] Last Admin: 06/05/17 11:45 Dose: 1 tab Nicotine (Nicoderm Cq) 1 patch TD DAILY [facility] Last Admin: 06/05/17 11:40 Dose: 1 patch Pantoprazole Sodium (Protonix Ec Tab) 20 mg PO 0600 [facility] Last Admin: 06/05/17 11:44 Dose: 20 mg Quetiapine Fumarate (Seroquel Xr) 300 mg PO HS [facility] PRN Reason: Protocol Last Admin: 06/04/17 22:22 Dose: 300 mg Thiamine HCl (Vitamin B1 Tab) 100 mg PO DAILY [facility] Last Admin: 06/05/17 11:43 Dose: 100 mg Ziprasidone (Geodon Inj) 20 mg IM Q6H PRN; Protocol PRN Reason: Agitation Attending/Attestation - Attestation I have personally seen and examined this patient.: Yes I have fully participated in the care of the patient.: Yes I have reviewed all pertinent clinical information, including history, physical exam and plan: Yes Notes (Text): 06/05/17 15:30 36 year old female with past medical history of hepatitis C, polysubstance abuse , hepatitis C, alcohol abuse and bipolar/depression who presented with depression and SI. Continue with 1:1 observation. Will follow up with psychiatry recommendations for possible transfer to psychiatric unit once bed is available. She was also found to have bilateral infiltrates, 7 mm pulmonary nodule and enlarged right axillary lymph node. Case was discussed with pulmonary who recommended to continue with antibiotics and steroids and to repeat CT chest with contrast in few weeks. She was counselled on risks of continued substance abuse. Counselled on smoking and alcohol cessation. Monitor for withdrawal symptoms. She was reported as lethargic last night but more alert this morning requesting methadone. Will resume at lower dose for now. Initially she was refusing labs and iv access but now is agreeable. Hien Thomas MD Hospitalist.
[2017-06-05] MEDS: Multivitamin Therapeutic Tab PO SCH (11:45)
--- NOTE | 2017-06-05 12:43 | CP.PCM.CON ---
History of Present Illness - History of Present Illness History of Present Illness: Pulmonary Consult Note HPI Patient is 36yo female with PMHx of polysubstance use, endocarditis, hep C, alcohol use, multiple suicide attempts, psych disorders, presents for depression for past few month. Pt admitted for suicidal ideation and abnormal CT chest without contrast which demonstrated mediastinal YAJAIRA, and non specific GGO. Pt reports she has cough for the past month, associated with fever/chills. Denies cp, palpitations, sob, LEWIS, dizziness, weight loss, recent incarcerations. No other constitutional symptoms. Pt smokes 1pk per day, abuses heroin, and cocaine. 12 point ROS obtained and neg, except as noted per HPI. PMH: Endocarditis, hepatitis C, polysubstance abuse, alcohol abuse/withdrawal, skin abscesses, bipolar, multiple suicide attempts, and antisocial personality disorder PSH: Bilateral rods placed in legs with ankle repair Family: Mother-Ovarian Cancer, Father-CRC Social: Currently smoking 1 packs per day, currently drinks one liter of vodka daily, and currently uses IV heroine and cocaine Allergies: Haldol Home Medications: As per EMR Review of Systems - Review of Systems Review of Systems: as per HPI Past Patient History - Infectious Disease Hx of Infectious Diseases: None - Tetanus Immunizations Tetanus Immunization: Unknown - Past Medical History & Family History Past Medical History?: Yes - Past Social History Smoking Status: Current Some Days Smoker - CARDIAC Hx Cardiac Disorders: No - PULMONARY Hx Respiratory Disorders: No - NEUROLOGICAL Hx Neurological Disorder: No - HEENT Hx HEENT Problems: No - RENAL Hx Chronic Kidney Disease: No - ENDOCRINE/METABOLIC Hx Endocrine Disorders: No - HEMATOLOGICAL/ONCOLOGICAL Hx Hepatitis C: Yes - INTEGUMENTARY Other/Comment: Abscess on hands, and feet - MUSCULOSKELETAL/RHEUMATOLOGICAL Hx Musculoskeletal Disorders: No Hx Falls: No - GASTROINTESTINAL Hx Gastrointestinal Disorders: No - GENITOURINARY/GYNECOLOGICAL Hx Genitourinary Disorders: No - PSYCHIATRIC Hx Psychophysiologic Disorder: Yes Hx Anxiety: Yes Hx Bipolar Disorder: Yes Hx Depression: Yes - SURGICAL HISTORY Hx Appendectomy: No Hx Cholecystectomy: No Hx Coronary Stent: No - ANESTHESIA Hx Anesthesia: No Hx Anesthesia Reactions: No Hx Malignant Hyperthermia: No Meds Allergies/Adverse Reactions: Allergies Allergy/AdvReac Type Severity Reaction Status Date / Time haloperidol lactate Allergy Intermediate SHORTNESS Verified 12/19/16 10:03 [From Haldol] OF BREATH haloperidol Allergy Unknown UNKNOWN Verified 12/19/16 10:03 - Medications Medications: Current Medications Amitriptyline HCl (Elavil) 25 mg PO HS [facility] Last Admin: 06/04/17 22:22 Dose: 25 mg Bupropion HCl (Wellbutrin) 75 mg PO DAILY [facility] Last Admin: 06/05/17 11:44 Dose: 75 mg Clonazepam (Klonopin) 2 mg PO BID [facility] Last Admin: 06/05/17 11:43 Dose: 2 mg Enoxaparin Sodium (Lovenox) 30 mg SC Q12H [facility] PRN Reason: Protocol Last Admin: 06/05/17 11:45 Dose: 30 mg Folic Acid (Folic Acid) 1 mg PO DAILY [facility] Last Admin: 06/05/17 11:44 Dose: 1 mg Gabapentin (Neurontin) 600 mg PO TID [facility] PRN Reason: Protocol Last Admin: 06/05/17 11:43 Dose: 600 mg Ceftriaxone Sodium (Rocephin 1 Gram Ivpb) 1 gm in 100 mls @ 100 mls/hr IVPB DAILY [facility] PRN Reason: Protocol Stop: 06/11/17 10:59 Azithromycin (Zithromax 500mg In Ns) 500 mg in 250 mls @ 167 mls/hr IVPB DAILY [facility] PRN Reason: Protocol Stop: 06/11/17 11:30 Lorazepam (Ativan) 2 mg IVP Q4H PRN; Protocol PRN Reason: Symptoms of alcohol withdrawl Multivitamins (Thera Tab) 1 tab PO 0800 [facility] Last Admin: 06/05/17 11:45 Dose: 1 tab Nicotine (Nicoderm Cq) 1 patch TD DAILY [facility] Last Admin: 06/05/17 11:40 Dose: 1 patch Pantoprazole Sodium (Protonix Ec Tab) 20 mg PO 0600 [facility] Last Admin: 06/05/17 11:44 Dose: 20 mg Quetiapine Fumarate (Seroquel Xr) 300 mg PO HS [facility] PRN Reason: Protocol Last Admin: 06/04/17 22:22 Dose: 300 mg Thiamine HCl (Vitamin B1 Tab) 100 mg PO DAILY [facility] Last Admin: 06/05/17 11:43 Dose: 100 mg Physical Exam - Constitutional Appears: Non-toxic, No Acute Distress, Unkempt - Head Exam Head Exam: NORMAL INSPECTION - Eye Exam Eye Exam: Normal appearance - ENT Exam ENT Exam: Mucous Membranes Moist - Neck Exam Neck exam: Positive for: Full Rom - Respiratory Exam Respiratory Exam: Clear to Auscultation Bilateral, NORMAL BREATHING PATTERN - Cardiovascular Exam Cardiovascular Exam: REGULAR RHYTHM, +S1, +S2 - GI/Abdominal Exam GI & Abdominal Exam: Normal Bowel Sounds, Soft - Extremities Exam Extremities exam: Positive for: normal inspection - Neurological Exam Neurological exam: Alert, Oriented x3 - Skin Skin Exam: Normal Color, Warm Results - Vital Signs Recent Vital Signs: Last Vital Signs Temp 98 F 06/04/17 23:10 Pulse 88 06/04/17 23:10 Resp 18 06/04/17 23:10 BP 129/70 06/04/17 23:10 Pulse Ox 100 06/04/17 22:20 - Labs Result Diagrams: 06/04/17 13:37 06/04/17 13:37 Labs: Laboratory Results - last 24 hr 06/04/17 20:50 Influenza Typ A,B (EIA) Negative for flu a/b Assessment & Plan - Assessment and Plan (Free Text) Assessment: 36yo female a/w fver, cough, and abnormal CT chest Abnormal CT chest Fever Cough Hx Smoking Hx of Cocaine and IVDU - currently afebrile, HD stable, comfortable in NAD, on room air sat 97% - CT chest noted with multiple non specific GGO in bilateral lungs with medistinal YAJAIRA (NON CONTRAST STUDY), and axillary YAJAIRA, which likely signifies reactive inflammatory and/or infectious process, in setting of cough/fever, although malignancy cannot be completely ruled out - would recommend treating for CAP, Levaquin IV or Rceophin/Azithro, with prednisone 40mg daily x 5 days with no taper - Duoensb PRN - would repeat CT chest w/IV contrast 3-4 weeks post discharge to ensure resolution of GGO, and mediastinal YAJAIRA - patient has psychosocial issues which can possibly make follow up with an MD difficult, would give an appointment prior to discharge with a PCP - DVT ppx - OOB to chair - monitor for withdrawal
[2017-06-05] MEDS: cefTRIAXone 1 gm 1 GM/100 ML BAG IVPB SCH (12:49)
[2017-06-05 13:24] LABS: FOLATE > 20.0 ng/mL
[2017-06-05] MEDS ORDERED: DiphenhydrAMINE 50 mg/ml Inj IVP STA (20:39)
[2017-06-05] MEDS: QUEtiapine 300 mg XR Tab PO SCH (23:20)
[2017-06-06] MEDS: Pantoprazole 20 mg EC Tab PO SCH (06:49)
[2017-06-06 07:38] LABS: BASO # 0.01 K/mm3 (0.0-2.0); BASO % 0.1 % (0.0-3.0); GRAN # 7.78 (1.4-6.5); GRAN % 84.1 % (50.0-68.0); HEMOGLOBIN 10.3 g/dL (12.0-16.0); LYMPH # 0.9 (1.2-3.4); LYMPH % 10.2 % (22.0-35.0); MEAN CELL VOLUME 92.7 fl (80.0-105.0); MEAN CORPUSCULAR HEMOGLOBIN 30.2 pg (25.0-35.0); MEAN CORPUSCULAR HGB CONC 32.6 g/dl (31.0-37.0); MEAN PLATELET VOLUME 8.8 fl (7.0-11.0); MONO # 0.5 (0.1-0.6); MONO % 5.6 % (1.0-6.0); RBC 3.41 10^6/uL (3.5-6.1); RED CELL DISTRIBUTION WIDTH 14.8 % (11.5-14.5); WHITE BLOOD COUNT 9.3 10^3/ul (4.5-11.0)
[2017-06-06 07:52] LABS: ALBUMIN 3.4 g/dL (3.0-4.8); ALT/SGPT 31 U/L (7-56); AST/SGOT 35 U/L (14-36); BLOOD UREA NITROGEN 10 mg/dL (7-21); CALCIUM 9.5 mg/dL (8.4-10.5); GFR AFRICAN-AMERICAN > 60; GFR NON-AFRICAN AMERICAN > 60; MAGNESIUM 1.9 mg/dL (1.7-2.2)
--- NOTE | 2017-06-06 08:37 | CON ---
DATE: 06/05/2017 She is being seen today for a consultation. PRESENTATION: The patient is a 36-year-old female seen at bedside. The patient was originally admitted to the hospital on 06/04/2017. She was brought in by EMS to the emergency room for evaluation of depression and suicidal ideation. Indicated she had a plan to cut her wrist. She ended up admitted medically for pneumonia. Consultation was ordered due to her suicidal ideation. The patient was seen on at bedside today. She was not very willing to answer any questions. She was uncooperative. She does have a long psych history, has been on 5B multiple times, has been to the emergency room multiple times with suicidal ideation along with having a history of bipolar disorder and opiate abuse. She did answer mental status questions and indicated that she was feeling very depressed and suicidal. Her plan is to cut her wrist and that she feels she needs to be in the hospital for her safety. She also indicated that she would like to be admitted voluntarily to the unit. This in fact is premature because the patient is not medically cleared, and certainly Psychiatry will continue to follow her until she is, and we will make a decision at that time. VITAL SIGNS: Include temperature of 98, pulse rate of 100, blood pressure of 107/63, respiratory rate of 20 and O2 sat of 98. CURRENT MEDICATIONS: Include Elavil 25 mg one at bedtime, Zithromax, Wellbutrin 75 mg one p.o. daily, clonazepam 2 mg one p.o. b.i.d., folic acid, gabapentin 600 mg t.i.d. She has a p.r.n. of lorazepam 2 mg IV push every four hours she has not used it. She additionally is getting multivitamins, Nicoderm CQ, Protonix, prednisone, Seroquel XL 300 mg one at bedtime, thiamine 100 mg daily, and she has a p.r.n. of Geodon in case of agitation which has not needed to be used as of yet. MENTAL STATUS EXAMINATION: The patient is alert, but she does not want to answer questions. She is oriented x2. There is no eye contact. She is not cooperative with questioning, said she is too uncomfortable. She is in too much pain. She cannot do it. Affect is constricted. Thoughts when she answers are goal-directed. She indicates that she is suicidal with the plan to cut her wrist and is willing for voluntary admission. She denies being homicidal. She denies the presence of hallucinations, delusions, or paranoia. Her concentration and focus were poor. I was unable to assess her memory, and she has not been eating or sleeping normally. DIAGNOSTIC IMPRESSION: Bipolar disorder, unspecified; polysubstance use disorder, chronic ongoing; substance induced mood disorder; rule out antisocial personality disorder. PLAN: The patient indicates that she is suicidal at this time. She is not medically cleared, so she is unable to be transferred to Psychiatry. However, we do have an order for one-to-one, and she will be having one-to-one in attendance until she stabilizes or goes to . Psychiatry will continue to follow daily. Thank you for the consult. Olga Ashley APN Julita Sotelo MD MYRANDA
[2017-06-06] MEDS: cefTRIAXone 1 gm 1 GM/100 ML BAG IVPB SCH (09:31)
[2017-06-06] MEDS: Multivitamin Therapeutic Tab PO SCH (09:33)
--- NOTE | 2017-06-06 10:01 | US ---
PROCEDURE: Left upper extremity venous ultrasound HISTORY: Arm pain and swelling. Evaluate for deep venous thrombosis. PHYSICIAN(S): Remigio Gómez MD. FINDINGS: The visualized leftinternal jugular vein is sonographically normal and compressible. No evidence of obstruction or thrombus is seen. The visualized segments of the left subclavian vein are patent with normal waveforms. No sonographic evidence of obstruction or thrombosis is seen. The visualized deep venous system of the proximal leftupper extremity is sonographically normal and compressible. IMPRESSION: 1. No sonographic evidence for deep venous thrombosis in the visualized segments of the left upper extremity.
--- NOTE | 2017-06-06 14:10 | CP.PCM.PN ---
<Jodie Odonnell - Last Filed: 06/06/17 14:03> Subjective - Date & Time of Evaluation Date of Evaluation: 06/06/17 Time of Evaluation: 14:03 - Subjective Subjective: Progress Note Patient seen and bedside. Patient states she's having pain in her left arm which was found to be swollen yesterday. Patient states she's had this for a few days now but admits she does not remember exactly when it started. Patient denies fever, chills, dizziness, nausea, vomiting, tremors, change in appetite, change in bowel movement, change in urination. Objective - Vital Signs/Intake and Output Vital Signs (last 24 hours): Temp Pulse Resp BP Pulse Ox 98 F 100 H 20 107/63 98 06/05/17 16:00 06/05/17 16:00 06/05/17 16:00 06/05/17 16:00 06/05/17 16:00 - Medications Medications: Current Medications Amitriptyline HCl (Elavil) 25 mg PO HS [facility] Last Admin: 06/05/17 23:20 Dose: 25 mg Azithromycin (Zithromax) 500 mg PO DAILY [facility] Last Admin: 06/06/17 09:34 Dose: 500 mg Bupropion HCl (Wellbutrin) 75 mg PO DAILY [facility] Last Admin: 06/06/17 09:33 Dose: 75 mg Clonazepam (Klonopin) 2 mg PO BID [facility] PRN Reason: Protocol Last Admin: 06/06/17 09:33 Dose: 2 mg Enoxaparin Sodium (Lovenox) 30 mg SC DAILY [facility] PRN Reason: Protocol Folic Acid (Folic Acid) 1 mg PO DAILY [facility] Last Admin: 06/06/17 09:34 Dose: 1 mg Gabapentin (Neurontin) 600 mg PO TID [facility] PRN Reason: Protocol Last Admin: 06/06/17 09:33 Dose: 600 mg Ceftriaxone Sodium (Rocephin 1 Gram Ivpb) 1 gm in 100 mls @ 100 mls/hr IVPB DAILY [facility] PRN Reason: Protocol Stop: 06/11/17 10:59 Last Admin: 06/06/17 09:31 Dose: 100 mls/hr Lorazepam (Ativan) 2 mg IVP Q4H PRN; Protocol PRN Reason: Symptoms of alcohol withdrawl Multivitamins (Thera Tab) 1 tab PO 0800 [facility] Last Admin: 06/06/17 09:33 Dose: 1 tab Nicotine (Nicoderm Cq) 1 patch TD DAILY [facility] Last Admin: 06/06/17 09:32 Dose: 1 patch Pantoprazole Sodium (Protonix Ec Tab) 20 mg PO 0600 [facility] Last Admin: 06/06/17 06:49 Dose: Not Given Prednisone (Prednisone Tab) 40 mg PO DAILY [facility] Stop: 06/10/17 15:46 Last Admin: 06/06/17 09:33 Dose: 40 mg Quetiapine Fumarate (Seroquel Xr) 300 mg PO HS [facility] PRN Reason: Protocol Last Admin: 06/05/17 23:20 Dose: 300 mg Thiamine HCl (Vitamin B1 Tab) 100 mg PO DAILY [facility] Last Admin: 06/06/17 09:34 Dose: 100 mg Trimethoprim/Sulfamethoxazole (Bactrim Ss Tab) 1 tab PO Q6 [facility] PRN Reason: Protocol Ziprasidone (Geodon Inj) 20 mg IM Q6H PRN; Protocol PRN Reason: Agitation - Labs Labs: 06/06/17 07:00 06/06/17 07:00 - Constitutional Appears: Non-toxic, No Acute Distress - Head Exam Head Exam: ATRAUMATIC, NORMAL INSPECTION, NORMOCEPHALIC - Eye Exam Eye Exam: EOMI, Normal appearance, PERRL Pupil Exam: NORMAL ACCOMODATION - ENT Exam ENT Exam: Mucous Membranes Moist, Normal Exam - Neck Exam Neck Exam: Full ROM - Respiratory Exam Respiratory Exam: Accessory Muscle Use, NORMAL BREATHING PATTERN - Cardiovascular Exam Cardiovascular Exam: REGULAR RHYTHM, +S1, +S2 - GI/Abdominal Exam GI & Abdominal Exam: Soft - Extremities Exam Extremities Exam: Full ROM. absent: Pedal Edema Additional comments: edema of left arm from mid-forearm to fingers. Patient is able to move full ROM , but with pain. Patient has mild erythema of fingers, not sharply demarcated, blanchable, inner wrist has a site that appears like a puncture site that is erythematous, no drainage. dorsal distal ulnar side of wrist where patient admits to injecting drugs had an area of slight ecchymosis. - Back Exam Back Exam: Full ROM - Neurological Exam Neurological Exam: Alert, Awake, CN II-XII Intact, Oriented x3 - Skin Skin Exam: Dry, Intact, Normal Color, Warm Assessment and Plan - Assessment and Plan (Free Text) Assessment: 36 year old female with a past medical history significant for endocarditis, hepatitis C, polysubstance abuse, alcohol abuse/withdrawal, skin abscesses, bipolar, and antisocial personality disorder, presents for depression and suicidal ideations, found to have bilateral infiltrates on chest CT. Suicidal Ideation/depression: - 1:1 watch - Psych consult. F/u recs. Bilateral infiltrates: 2/2 CAP - Given Levaquin in ED. - Chest CT showed: 7 mm nodule at the right pulmonary apex. Within the right upper lobe, there is a small consolidation measuring 1.4 cm in diameter. Multiple groundglass density infiltrates are visualized within the lungs bilaterally. These infiltrates are suggestive of an infectious or inflammatory etiology, although malignancy cannot be excluded. Clinical correlation and a f ollow-up CT with IV contrast in one month is recommended. There is enlarged right axillary lymph node measuring 1.8 cm in length. A borderline enlarged left axillary lymph node is visualized. Multiple mediastinal lymph nodes are identified, a few which are borderline enlarged. - F/u procal - Afebrile, no leukocytosis Pulmonary Consult: follow up CT with contrast. Patient had a dry CT chest done while in ED. continue IV antibiotics for CAP, discharge on oral antibiotics or admit to psychiatry on oral antibiotics. Pulmonary nodule: - Chest CT showed: 7 mm nodule at the right pulmonary apex. There is enlarged right axillary lymph node measuring 1.8 cm in length. A borderline enlarged left axillary lymph node is visualized. Multiple mediastinal lymph nodes are identified, a few which are borderline enlarged. - No previous chest CT found on records. - Obtain previous records - ask in AM once pt is sober - Will need follow up CT in 6-12 months. - Pulmonary Consult: follow up CT with IV contrast in 4-6 weeks. Patient had a dry CT chest done while in ED. continue IV antibiotics for CAP, discharge on oral antibiotics or admit to psychiatry on oral antibiotics. left arm edema, possible cellulitis, history of MRSA cellulitis of right arm left hand 3 view xray Bactrim PO Q6H Anemia: Normocytic, 2/2 likely ACD vs mixed - Hgb 10.4 on admission, previous admissions range hgb 12-14 - obtain iron studies, vitamin B12, folate - daily cbc - Cont to monitor Alcohol abuse/withdrawal: - CIWA - Seizure/fall/aspiration precautions - Ativan prn - Banana bag @ 100 in ED - thiamine, folic acid Hx of cocaine/methadone use: - UDS pos opiates, methadone, cocaine - Advised cessation - [place] [id number] [address] was called 06/05 and patient was confirmed to have a dose of 170mg Q daily with last administration 06/02 and patient was sent home with a bottle 06/03 06/05 80mg methadone was given in the hospital 06/06 110 mg methadone was given in the hospital, no signs of withdrawal Hx of bipolar/depression/psych: - C/w home psych meds - Psych Eval: patient is cleared to admit to psychiatry when patient is on oral medication and also when a bed is available. Hx of tobacco use: - advised cessation - nicotine patch PPX: Pepcid, Lovenox Diet: Regular discussed with Dr. Martha Odonnell DO PGY1 <Hien Thomas - Last Filed: 06/06/17 15:40> Objective - Vital Signs/Intake and Output Vital Signs (last 24 hours): Temp Pulse Resp BP Pulse Ox 98.4 F 86 20 115/65 94 L 06/06/17 07:30 06/06/17 07:30 06/06/17 07:30 06/06/17 07:30 06/06/17 07:30 - Medications Medications: Current Medications Amitriptyline HCl (Elavil) 25 mg PO HS [facility] Last Admin: 06/05/17 23:20 Dose: 25 mg Azithromycin (Zithromax) 500 mg PO DAILY [facility] Last Admin: 06/06/17 09:34 Dose: 500 mg Bupropion HCl (Wellbutrin) 75 mg PO DAILY [facility] Last Admin: 06/06/17 09:33 Dose: 75 mg Clonazepam (Klonopin) 2 mg PO BID [facility] PRN Reason: Protocol Last Admin: 06/06/17 09:33 Dose: 2 mg Enoxaparin Sodium (Lovenox) 30 mg SC DAILY [facility] PRN Reason: Protocol Folic Acid (Folic Acid) 1 mg PO DAILY [facility] Last Admin: 06/06/17 09:34 Dose: 1 mg Gabapentin (Neurontin) 600 mg PO TID [facility] PRN Reason: Protocol Last Admin: 06/06/17 09:33 Dose: 600 mg Ceftriaxone Sodium (Rocephin 1 Gram Ivpb) 1 gm in 100 mls @ 100 mls/hr IVPB DAILY [facility] PRN Reason: Protocol Stop: 06/11/17 10:59 Last Admin: 06/06/17 09:31 Dose: 100 mls/hr Lorazepam (Ativan) 2 mg IVP Q4H PRN; Protocol PRN Reason: Symptoms of alcohol withdrawl Multivitamins (Thera Tab) 1 tab PO 0800 [facility] Last Admin: 06/06/17 09:33 Dose: 1 tab Nicotine (Nicoderm Cq) 1 patch TD DAILY [facility] Last Admin: 06/06/17 09:32 Dose: 1 patch Pantoprazole Sodium (Protonix Ec Tab) 20 mg PO 0600 [facility] Last Admin: 06/06/17 06:49 Dose: Not Given Prednisone (Prednisone Tab) 40 mg PO DAILY [facility] Stop: 06/10/17 15:46 Last Admin: 06/06/17 09:33 Dose: 40 mg Quetiapine Fumarate (Seroquel Xr) 300 mg PO HS [facility] PRN Reason: Protocol Last Admin: 06/05/17 23:20 Dose: 300 mg Thiamine HCl (Vitamin B1 Tab) 100 mg PO DAILY [facility] Last Admin: 06/06/17 09:34 Dose: 100 mg Trimethoprim/Sulfamethoxazole (Bactrim Ss Tab) 1 tab PO Q6 [facility] PRN Reason: Protocol Ziprasidone (Geodon Inj) 20 mg IM Q6H PRN; Protocol PRN Reason: Agitation - Labs Labs: 06/06/17 07:00 06/06/17 07:00 Attending/Attestation - Attestation I have personally seen and examined this patient.: Yes I have fully participated in the care of the patient.: Yes I have reviewed all pertinent clinical information, including history, physical exam and plan: Yes Notes (Text): 06/06/17 15:38 36 year old female with past medical history of hepatitis C, polysubstance abuse , hepatitis C, alcohol abuse and bipolar/depression who presented with depression and SI. Psychiatry evaluation was appreciated. Continue with 1:1 observation. Will follow up with psychiatry recommendations for possible transfer to psychiatric unit once bed is available. She was also found to have bilateral infiltrates, 7 mm pulmonary nodule and enlarged right axillary lymph node. Pulmonary is following and has recommended to continued with antibiotics and steroids and to repeat CT chest with contrast in one month. She was counselled on risks of continued substance abuse. Counselled on smoking and alcohol cessation. Monitor for withdrawal symptoms. She is on methadone for maintainence therapy. Continue limb elevation and antibiotics for left hand/forearm swelling. LUE doppler was negative. Xray is ordered and pending. Hien Thomas MD Hospitalist.
[2017-06-06] MEDS ORDERED: Bisacodyl 5mg EC Tab PO ONE (15:16)
--- NOTE | 2017-06-06 15:53 | RAD ---
PROCEDURE: Left Hand Radiographs. HISTORY: hand swelling COMPARISON: None. FINDINGS: BONES: Normal. No fracture. JOINTS: Normal. No osteoarthritic changes. SOFT TISSUES: Normal. OTHER FINDINGS: None. IMPRESSION: Normal left hand radiographs.
[2017-06-06] MEDS: Tmp-Smz 400 mg-80 mg SS Tab PO SCH (17:30)
[2017-06-06] MEDS: QUEtiapine 300 mg XR Tab PO SCH (21:44)
[2017-06-07] MEDS: Tmp-Smz 400 mg-80 mg SS Tab PO SCH ×5 (02:26→23:01)
[2017-06-07] MEDS: Pantoprazole 20 mg EC Tab PO SCH (06:45)
--- NOTE | 2017-06-07 08:17 | PN ---
DATE: 06/06/2017 She is being seen today for a followup consultation. PRESENTATION: Patient is a 36-year-old female seen at bedside, one-to-one in attendance. Patient was originally admitted to [facility], having come in through the ER by EMS for evaluation of depression and suicidal ideation. She had a plan to cut her wrist, but had not harmed herself. Consultation was called due to concerns over suicidal ideation. Patient has a one-to-one in attendance for suicidal ideation. When seen today, she was very tired and sedated. She indicates that she does not want to talk. She does validate that she is still suicidal, wants to and her plan is to cut her wrist and that she would like to be admitted until Sunday because she does not think she would be safe outside of the hospital. Patient understands that she has to be medically cleared. She is having multiple medical problems at the moment. Most recent thing is going on is her left arm is very swollen. Medical team is assessing this. She additionally has a history of endocarditis, hepatitis C, polysubstance abuse, alcohol abuse, skin abscesses with MRSA. She has bilateral infiltrates on her chest CT, which are new of this admission. She additionally is on CIWA precaution because patient not only abuses opioids, methadone, or cocaine, she drinks quite a bit of vodka daily. Medical team have contacted [facility] and confirmed that she has a dose of 170 mg daily. She is being covered with 110 mg daily in the hospital with no signs of withdrawal. VITAL SIGNS: Current vital signs include temperature of 98.4, pulse rate of 86, blood pressure of 115/65, respiratory rate of 20, and O2 sat of 94. Her urine clean catch was negative. MENTAL STATUS EXAM: Patient was unable to be fully assessed. She was very lethargic, difficult to arouse and uncooperative. She did indicate that she continue to be suicidal. She would cut her wrist if she was discharged. She would not feel safe and wants to be admitted to the psychiatric unit and is going to be admitted voluntarily. She does understand she must be medically cleared before she can come to the psychiatric unit. DIAGNOSTIC IMPRESSION: Bipolar I disorder, chronic; polysubstance dependence, chronic ongoing severe. PLAN: The patient is suicidal with the plan. She is on one-to-one while on the medical floor. She has multiple medical issues at the moment and if not medically cleared, one-to-one will be in attendance until she is cleared. At that time, she indicates that she is willing to voluntarily sign in until Sunday so if there is a bed available at that time, I will admit her. Thank you for the consult. We will continue to follow daily. Olga Ashley APN Julita Sotelo MD [email or web address]
[2017-06-07] MEDS: cefTRIAXone 1 gm 1 GM/100 ML BAG IVPB SCH (10:53)
[2017-06-07] MEDS: Enoxaparin 30 mg Syringe SC SCH (10:54)
[2017-06-07] MEDS: Multivitamin Therapeutic Tab PO SCH (10:55)
--- NOTE | 2017-06-07 12:32 | CP.PCM.PN ---
<BelleJodie - Last Filed: 06/07/17 15:01> Subjective - Date & Time of Evaluation Date of Evaluation: 06/07/17 Time of Evaluation: 12:23 - Subjective Subjective: Progress note for Dr. Thomas Patient was irritated this morning and stated she had pain in her left hand. Patient denies fever, chills, nausea, vomiting. Patient states she wanted her methadone and was agreeable to labs after discussing with patient the importance of monitoring her labs. Objective - Vital Signs/Intake and Output Vital Signs (last 24 hours): Temp Pulse Resp BP Pulse Ox 98.4 F 86 20 115/65 94 L 06/06/17 07:30 06/06/17 07:30 06/06/17 07:30 06/06/17 07:30 06/06/17 07:30 Intake and Output: 06/07/17 06/07/17 06:59 18:59 Intake Total 1620 Output Total 0 Balance 1620 - Medications Medications: Current Medications Amitriptyline HCl (Elavil) 25 mg PO HS [facility] Last Admin: 06/06/17 21:44 Dose: 25 mg Azithromycin (Zithromax) 500 mg PO DAILY [facility] Last Admin: 06/07/17 10:54 Dose: 500 mg Bupropion HCl (Wellbutrin) 75 mg PO DAILY [facility] Last Admin: 06/07/17 10:54 Dose: 75 mg Clonazepam (Klonopin) 2 mg PO BID [facility] PRN Reason: Protocol Last Admin: 06/07/17 10:55 Dose: 2 mg Enoxaparin Sodium (Lovenox) 30 mg SC DAILY [facility] PRN Reason: Protocol Last Admin: 06/07/17 10:54 Dose: 30 mg Folic Acid (Folic Acid) 1 mg PO DAILY [facility] Last Admin: 06/07/17 10:55 Dose: 1 mg Gabapentin (Neurontin) 600 mg PO TID [facility] PRN Reason: Protocol Last Admin: 06/07/17 10:55 Dose: 600 mg Ceftriaxone Sodium (Rocephin 1 Gram Ivpb) 1 gm in 100 mls @ 100 mls/hr IVPB DAILY [facility] PRN Reason: Protocol Stop: 06/11/17 10:59 Last Admin: 06/07/17 10:53 Dose: 100 mls/hr Lorazepam (Ativan) 2 mg IVP Q4H PRN; Protocol PRN Reason: Symptoms of alcohol withdrawl Last Admin: 06/07/17 02:24 Dose: 2 mg Multivitamins (Thera Tab) 1 tab PO 0800 [facility] Last Admin: 06/07/17 10:55 Dose: 1 tab Nicotine (Nicoderm Cq) 1 patch TD DAILY [facility] Last Admin: 06/07/17 10:54 Dose: 1 patch Pantoprazole Sodium (Protonix Ec Tab) 20 mg PO 0600 [facility] Last Admin: 06/07/17 06:45 Dose: 20 mg Prednisone (Prednisone Tab) 40 mg PO DAILY [facility] Stop: 06/10/17 15:46 Last Admin: 06/07/17 10:54 Dose: 40 mg Quetiapine Fumarate (Seroquel Xr) 300 mg PO HS [facility] PRN Reason: Protocol Last Admin: 06/06/17 21:44 Dose: 300 mg Thiamine HCl (Vitamin B1 Tab) 100 mg PO DAILY [facility] Last Admin: 06/07/17 10:54 Dose: 100 mg Trimethoprim/Sulfamethoxazole (Bactrim Ss Tab) 1 tab PO Q6 [facility] PRN Reason: Protocol Last Admin: 06/07/17 06:45 Dose: 1 tab Ziprasidone (Geodon Inj) 20 mg IM Q6H PRN; Protocol PRN Reason: Agitation - Labs Labs: 06/06/17 07:00 06/06/17 07:00 - Constitutional Appears: Non-toxic, No Acute Distress - Head Exam Head Exam: ATRAUMATIC, NORMAL INSPECTION, NORMOCEPHALIC - Eye Exam Eye Exam: EOMI, Normal appearance Pupil Exam: NORMAL ACCOMODATION, PERRL - ENT Exam ENT Exam: Mucous Membranes Moist, Normal Exam - Neck Exam Neck Exam: Full ROM, Normal Inspection - Respiratory Exam Respiratory Exam: NORMAL BREATHING PATTERN. absent: Accessory Muscle Use, Respiratory Distress - Cardiovascular Exam Cardiovascular Exam: REGULAR RHYTHM, +S1, +S2 - GI/Abdominal Exam GI & Abdominal Exam: Soft, Normal Bowel Sounds. absent: Distended, Firm, Guarding, Tenderness - Extremities Exam Extremities Exam: Full ROM. absent: Pedal Edema Additional comments: erythema and swelling of left hand similar to yesterday. no pitting edema. edema of left arm from mid-forearm to fingers. Patient is able to move full ROM , but with pain. Patient has mild erythema of fingers, not sharply demarcated, blanchable, inner wrist has a site that appears like a puncture site that is erythematous, no drainage. dorsal distal ulnar side of wrist where patient admits to injecting drugs had an area of slight ecchymosis. - Back Exam Back Exam: Full ROM, NORMAL INSPECTION - Neurological Exam Neurological Exam: Alert, CN II-XII Intact, Normal Gait, Oriented x3 - Psychiatric Exam Psychiatric exam: Normal Affect, Normal Mood - Skin Skin Exam: Dry, Intact, Normal Color, Warm Assessment and Plan - Assessment and Plan (Free Text) Assessment: 36 year old female with a past medical history significant for endocarditis, hepatitis C, polysubstance abuse, alcohol abuse/withdrawal, skin abscesses, bipolar, and antisocial personality disorder, presents for depression and suicidal ideations, found to have bilateral infiltrates on chest CT. Suicidal Ideation/depression: - 1:1 watch - Psych consult. F/u recs. Bilateral infiltrates: 2/2 CAP - Given Levaquin in ED. - Chest CT showed: 7 mm nodule at the right pulmonary apex. Within the right upper lobe, there is a small consolidation measuring 1.4 cm in diameter. Multiple groundglass density infiltrates are visualized within the lungs bilaterally. These infiltrates are suggestive of an infectious or inflammatory etiology, although malignancy cannot be excluded. Clinical correlation and a follow-up CT with IV contrast in one month is recommended. There is enlarged right axillary lymph node measuring 1.8 cm in length. A borderline enlarged left axillary lymph node is visualized. Multiple mediastinal lymph nodes are identified, a few which are borderline enlarged. - F/u procal - Afebrile, no leukocytosis Pulmonary Consult: follow up CT with contrast. Patient had a dry CT chest done while in ED. continue IV antibiotics for CAP, discharge on oral antibiotics or admit to psychiatry on oral antibiotics. Pulmonary nodule: - Chest CT showed: 7 mm nodule at the right pulmonary apex. There is enlarged right axillary lymph node measuring 1.8 cm in length. A borderline enlarged left axillary lymph node is visualized. Multiple mediastinal lymph nodes are identified, a few which are borderline enlarged. - No previous chest CT found on records. - Obtain previous records - ask in AM once pt is sober - Will need follow up CT in 6-12 months. - Pulmonary Consult: follow up CT with IV contrast in 4-6 weeks. Patient had a dry CT chest done while in ED. continue IV antibiotics for CAP, discharge on oral antibiotics or admit to psychiatry on oral antibiotics. left arm edema, possible cellulitis, history of MRSA cellulitis of right arm left hand 3 view xray Bactrim PO Q6H Anemia: Normocytic, 2/2 likely ACD vs mixed - Hgb 10.4 on admission, previous admissions range hgb 12-14 - obtain iron studies, vitamin B12, folate - daily cbc - Cont to monitor Alcohol abuse/withdrawal: - CIWA - Seizure/fall/aspiration precautions - Ativan prn - Banana bag @ 100 in ED - thiamine, folic acid Hx of cocaine/methadone use: - UDS pos opiates, methadone, cocaine - Advised cessation - [place] [id number] was called 06/05 and patient was confirmed to have a dose of 170mg Q daily with last administration 06/02 and patient was sent home with a bottle 06/03 06/05 80mg methadone was given in the hospital 06/06 110 mg methadone was given in the hospital, no signs of withdrawal 06/07 140 mg methadone, no signs of withdrawal Hx of bipolar/depression/psych: - C/w home psych meds - Psych Eval: patient is cleared to admit to psychiatry when patient is on oral medication and also when a bed is available. Hx of tobacco use: - advised cessation - nicotine patch PPX: Pepcid, Lovenox Diet: Regular Psychiatry said patient will be interviewed tomorrow for admission to psych if patient is agreeable. Patient has been refusing interviews per psychiatry discussed with Dr. Martha Odonnell DO PGY1 <Hien Thomas - Last Filed: 06/07/17 17:13> Objective - Vital Signs/Intake and Output Vital Signs (last 24 hours): Temp Pulse Resp BP Pulse Ox 97.9 F 103 H 20 132/92 H 98 06/07/17 16:00 06/07/17 16:00 06/07/17 16:00 06/07/17 16:00 06/07/17 16:00 Intake and Output: 06/07/17 06/07/17 06:59 18:59 Intake Total 1620 1020 Output Total 0 Balance 1620 1020 - Medications Medications: Current Medications Amitriptyline HCl (Elavil) 25 mg PO HS [facility] Last Admin: 06/06/17 21:44 Dose: 25 mg Azithromycin (Zithromax) 500 mg PO DAILY [facility] Last Admin: 06/07/17 10:54 Dose: 500 mg Bupropion HCl (Wellbutrin) 75 mg PO DAILY [facility] Last Admin: 06/07/17 10:54 Dose: 75 mg Clonazepam (Klonopin) 2 mg PO BID [facility] PRN Reason: Protocol Last Admin: 06/07/17 10:55 Dose: 2 mg Enoxaparin Sodium (Lovenox) 30 mg SC DAILY [facility] PRN Reason: Protocol Last Admin: 06/07/17 10:54 Dose: 30 mg Folic Acid (Folic Acid) 1 mg PO DAILY [facility] Last Admin: 06/07/17 10:55 Dose: 1 mg Gabapentin (Neurontin) 600 mg PO TID [facility] PRN Reason: Protocol Last Admin: 06/07/17 15:02 Dose: 600 mg Ceftriaxone Sodium (Rocephin 1 Gram Ivpb) 1 gm in 100 mls @ 100 mls/hr IVPB DAILY [facility] PRN Reason: Protocol Stop: 06/11/17 10:59 Last Admin: 06/07/17 10:53 Dose: 100 mls/hr Lorazepam (Ativan) 2 mg IVP Q4H PRN; Protocol PRN Reason: Symptoms of alcohol withdrawl Last Admin: 06/07/17 14:35 Dose: 2 mg Multivitamins (Thera Tab) 1 tab PO 0800 [facility] Last Admin: 06/07/17 10:55 Dose: 1 tab Nicotine (Nicoderm Cq) 1 patch TD DAILY [facility] Last Admin: 06/07/17 10:54 Dose: 1 patch Pantoprazole Sodium (Protonix Ec Tab) 20 mg PO 0600 [facility] Last Admin: 06/07/17 06:45 Dose: 20 mg Prednisone (Prednisone Tab) 40 mg PO DAILY [facility] Stop: 06/10/17 15:46 Last Admin: 06/07/17 10:54 Dose: 40 mg Quetiapine Fumarate (Seroquel Xr) 300 mg PO HS [facility] PRN Reason: Protocol Last Admin: 06/06/17 21:44 Dose: 300 mg Thiamine HCl (Vitamin B1 Tab) 100 mg PO DAILY [facility] Last Admin: 06/07/17 10:54 Dose: 100 mg Trimethoprim/Sulfamethoxazole (Bactrim Ss Tab) 1 tab PO Q6 [facility] PRN Reason: Protocol Last Admin: 06/07/17 12:20 Dose: 1 tab Vitamin A (Vitamin A&D) 1 applic TP Q8 PRN PRN Reason: Itching / Pruritus Ziprasidone (Geodon Inj) 20 mg IM Q6H PRN; Protocol PRN Reason: Agitation - Labs Labs: 06/07/17 12:22 06/07/17 12:30 Attending/Attestation - Attestation I have personally seen and examined this patient.: Yes I have fully participated in the care of the patient.: Yes I have reviewed all pertinent clinical information, including history, physical exam and plan: Yes Notes (Text): 06/07/17 17:12 36 year old female with past medical history of hepatitis C, polysubstance abuse , hepatitis C, alcohol abuse and bipolar/depression who presented with depression and SI. Continue with 1:1 observation. She is being followed by psychiatrist. Possible transfer to inpatient psychiatric unit tomorrow if patient agreeable and bed available. She was also found to have bilateral infiltrates, 7 mm pulmonary nodule and enlarged right axillary lymph node. Pulmonary is following and has recommended to continued with antibiotics and steroids and to repeat CT chest with contrast in one month. She was counselled on risks of continued substance abuse. Counselled on smoking and alcohol cessation. Monitor for withdrawal symptoms. She is on methadone for maintainence therapy. Continue limb elevation and antibiotics for left hand/forearm swelling. LUE doppler and xray hand were negative. Will replete and repeat lytes. Hien Thomas MD Hospitalist.
[2017-06-07 12:47] LABS: BASO # 0.03 K/mm3 (0.0-2.0); BASO % 0.4 % (0.0-3.0); EOS # 0.2 (0.0-0.7); GRAN # 4.97 (1.4-6.5); GRAN % 60.8 % (50.0-68.0); LYMPH # 2.3 (1.2-3.4); LYMPH % 27.6 % (22.0-35.0); MEAN CORPUSCULAR HEMOGLOBIN 29.9 pg (25.0-35.0); MEAN CORPUSCULAR HGB CONC 31.7 g/dl (31.0-37.0); MEAN PLATELET VOLUME 8.9 fl (7.0-11.0); MONO # 0.8 (0.1-0.6); MONO % 9.2 % (1.0-6.0); RBC 3.35 10^6/uL (3.5-6.1); RED CELL DISTRIBUTION WIDTH 14.9 % (11.5-14.5); WHITE BLOOD COUNT 8.2 10^3/ul (4.5-11.0)
[2017-06-07 12:57] LABS: ALB/GLOB RATIO 1.1 (1.1-1.8); ALBUMIN 3.3 g/dL (3.0-4.8); ALT/SGPT 29 U/L (7-56); AST/SGOT 33 U/L (14-36); BLOOD UREA NITROGEN 10 mg/dL (7-21); CALCIUM 9.2 mg/dL (8.4-10.5); GFR AFRICAN-AMERICAN > 60; GFR NON-AFRICAN AMERICAN > 60; MAGNESIUM 1.6 mg/dL (1.7-2.2)
[2017-06-07] MEDS ORDERED: Potassium Chloride 20 mEq ER Tab PO ONE (13:08)
[2017-06-07] MEDS ORDERED: Magnesium Oxide 400 mg Tab UD PO ONE (13:24)
[2017-06-07] MEDS ORDERED: Vitamin A/D oint 60G TP PRN (16:14)
[2017-06-07] MEDS ORDERED: Vitamins A & D Oint UD Foilpak TOP PRN (19:07)
[2017-06-07] MEDS: QUEtiapine 300 mg XR Tab PO SCH (22:56)
[2017-06-08] MEDS: Pantoprazole 20 mg EC Tab PO SCH (05:36)
[2017-06-08] MEDS: Tmp-Smz 400 mg-80 mg SS Tab PO SCH ×3 (05:37→17:51)
[2017-06-08 08:00] LABS: BASO # 0.02 K/mm3 (0.0-2.0); BASO % 0.2 % (0.0-3.0); EOS # 0.1 (0.0-0.7); EOS % 1.2 % (1.5-5.0); GRAN # 6.86 (1.4-6.5); GRAN % 67.3 % (50.0-68.0); HEMOGLOBIN 10.2 g/dL (12.0-16.0); LYMPH # 2.3 (1.2-3.4); MEAN CELL VOLUME 94.7 fl (80.0-105.0); MEAN CORPUSCULAR HEMOGLOBIN 30.1 pg (25.0-35.0); MEAN CORPUSCULAR HGB CONC 31.8 g/dl (31.0-37.0); MONO # 0.8 (0.1-0.6); MONO % 8.3 % (1.0-6.0); RBC 3.39 10^6/uL (3.5-6.1); RED CELL DISTRIBUTION WIDTH 14.9 % (11.5-14.5); WHITE BLOOD COUNT 10.2 10^3/ul (4.5-11.0)
[2017-06-08 08:16] LABS: ALB/GLOB RATIO 1.1 (1.1-1.8); ALBUMIN 3.5 g/dL (3.0-4.8); ALT/SGPT 30 U/L (7-56); AST/SGOT 31 U/L (14-36); BLOOD UREA NITROGEN 14 mg/dL (7-21); CALCIUM 9.3 mg/dL (8.4-10.5); GFR AFRICAN-AMERICAN > 60; GFR NON-AFRICAN AMERICAN > 60; MAGNESIUM 1.9 mg/dL (1.7-2.2)
--- NOTE | 2017-06-08 08:25 | CON ---
DATE: 06/07/2017 She is being seen today for a followup consultation. PRESENTATION: The patient is a 36-year-old white female seen at bedside. She has a one-to-one in attendance. She was originally admitted on 06/04/2017 indicating that she was homeless, suicidal with a plan to cut her wrist. She was drowsy and intoxicated when seen. She has a history of polysubstance use, endocarditis, hepatitis C, alcohol use, multiple suicide attempts. She has been multiple times in the and indicates she has been depressed for the past few months. Psychiatric consultation was ordered due to concern about suicidal ideation. She was seen on 06/05/2017 and indicated to me that she indeed was suicidal to the plan to cut her wrist and that she would like to be admitted to voluntarily. However, she has not been medically cleared, so she has been treated for variety of medical issues on the unit. However, at that time one-to- one was ordered and she has a had a one-to-one in attendance since. When visited yesterday, she was too sedated to answer questions. When I saw her today, she was sitting up and pleasant until I started asking her questions and then she refused to answer them other than indicating that she was still suicidal and she did want to cut her wrist and she would tell me what I needed to know when it was time for her to go to the psych unit. According to nurses' notes, the patient is homeless, was staying at the [facility] in the [place]. Evidently, her belongings were not searched in the emergency room, so the nurses were looking through her belongings last night and found a Ziploc bag of used and unused syringes, a tourniquet, crack pipe, empty crack vials, crack, and an old prescriptions bottle, all of that was disposed off in sharps containers. She had bottles labeled gabapentin and amitriptyline that were sent to the pharmacy. So, certainly this fits in with patient's presentation and what she has been on, how her addiction has been going. CURRENT MEDICATIONS: Include psychiatrically Elavil 20 mg one at bedtime, Wellbutrin 75 mg one p.o. daily, Klonopin 2 mg p.o. b.i.d., folic acid, gabapentin 600 mg p.o. t.i.d., Ativan 2 mg IV push q. 4 hours as needed, she has been getting this, multivitamins, NicoDerm CQ, Seroquel XR 300 mg one at bedtime, thiamine, and she has the p.r.n. of Geodon IM as well as the Ativan order. CURRENT VITAL SIGNS: Include temperature of 97.9, pulse rate of 103, blood pressure of 132/92, respiratory rate of 20, and O2 sat of 98%. MENTAL STATUS EXAMINATION: Was unable to be performed due to the patient's general uncooperativeness; however, she did indicate that she continues to be suicidal. She continues to have a plan to cut herself and she continues to want to sign into 5B at this point in time, however, she would not give me any other information at this time and she closed her eyes and put herself back to bed. DIAGNOSTIC IMPRESSION: Bipolar disorder, unspecified; polysubstance dependence; borderline personality disorder. PLAN: The patient is suicidal. She has a one-to-one in attendance. She at this time is wanting to sign into 5B; however, she is getting more alert and evidently is more talkative and can be abusive towards staff. So far, she is physically cooperative, but she does have p.r.n. of Geodon and Ativan should they be needed. We will continue to follow daily. Psychiatry will continue to follow daily. Thank you for the consult. Olga Ashley APN Julita Sotelo MD MYRANDA
[2017-06-08] MEDS: Multivitamin Therapeutic Tab PO SCH (09:32)
[2017-06-08] MEDS: cefTRIAXone 1 gm 1 GM/100 ML BAG IVPB SCH (09:35)
[2017-06-08] MEDS: Enoxaparin 30 mg Syringe SC SCH (09:35)
--- NOTE | 2017-06-08 11:15 | CP.PCM.DIS ---
Provider - Provider Date of Admission: 06/04/17 20:09 Attending physician: Hien Thomas MD Primary care physician: Maynor Weathers MD Consults: Dr. Deepak Hernandez Time Spent in preparation of Discharge (in minutes): 35 Hospital Course - Lab Results Lab Results: Most Recent Lab Values WBC 10.2 10^3/ul (4.5-11.0) D 06/08/17 07:00 RBC 3.39 10^6/uL (3.5-6.1) L 06/08/17 07:00 Hgb 10.2 g/dL (12.0-16.0) L 06/08/17 07:00 Hct 32.1 % (36.0-48.0) L 06/08/17 07:00 MCV 94.7 fl (80.0-105.0) 06/08/17 07:00 MCH 30.1 pg (25.0-35.0) 06/08/17 07:00 MCHC 31.8 g/dl (31.0-37.0) 06/08/17 07:00 RDW 14.9 % (11.5-14.5) H 06/08/17 07:00 Plt Count 331 10^3/uL (120.0-450.0) 06/08/17 07:00 MPV 9.0 fl (7.0-11.0) 06/08/17 07:00 Gran % 67.3 % (50.0-68.0) 06/08/17 07:00 Lymph % (Auto) 23.0 % (22.0-35.0) 06/08/17 07:00 [place] % (Auto) 8.3 % (1.0-6.0) H 06/08/17 07:00 Eos % (Auto) 1.2 % (1.5-5.0) L 06/08/17 07:00 Baso % (Auto) 0.2 % (0.0-3.0) 06/08/17 07:00 Gran # 6.86 (1.4-6.5) H 06/08/17 07:00 Lymph # (Auto) 2.3 (1.2-3.4) 06/08/17 07:00 [place] # (Auto) 0.8 (0.1-0.6) H 06/08/17 07:00 Eos # (Auto) 0.1 (0.0-0.7) 06/08/17 07:00 Baso # (Auto) 0.02 K/mm3 (0.0-2.0) 06/08/17 07:00 Sodium 139 mmol/L (132-148) 06/08/17 07:00 Potassium 3.4 mmol/L (3.6-5.0) L 06/08/17 07:00 Chloride 104 mmol/L (98-107) 06/08/17 07:00 Carbon Dioxide 24 mmol/L (21-33) 06/08/17 07:00 Anion Gap 14 (10-20) 06/08/17 07:00 BUN 14 mg/dL (7-21) 06/08/17 07:00 Creatinine 0.6 mg/dl (0.7-1.2) L 06/08/17 07:00 Est GFR ( Amer) > 60 06/08/17 07:00 Est GFR (Non-Af Amer) > 60 06/08/17 07:00 Random Glucose 125 mg/dL (70-110) H 06/08/17 07:00 Hemoglobin A1c 5.1 % (4.2-6.5) 06/04/17 13:37 Calcium 9.3 mg/dL (8.4-10.5) 06/08/17 07:00 Phosphorus 4.0 mg/dL (2.5-4.5) 06/08/17 07:00 Magnesium 1.9 mg/dL (1.7-2.2) 06/08/17 07:00 Ferritin 222.0 ng/mL 06/04/17 13:37 Total Bilirubin 0.1 mg/dL (0.2-1.3) L 06/08/17 07:00 AST 31 U/L (14-36) 06/08/17 07:00 ALT 30 U/L (7-56) 06/08/17 07:00 Alkaline Phosphatase 74 U/L (38-126) 06/08/17 07:00 Total Protein 6.7 g/dL (5.8-8.3) 06/08/17 07:00 Albumin 3.5 g/dL (3.0-4.8) 06/08/17 07:00 Globulin 3.2 gm/dL 06/08/17 07:00 Albumin/Globulin Ratio 1.1 (1.1-1.8) 06/08/17 07:00 Triglycerides 38 mg/dL (35-160) 06/04/17 13:37 Cholesterol 142 mg/dL (130-200) 06/04/17 13:37 LDL Cholesterol Direct 61 mg/dL (0-129) 06/04/17 13:37 HDL Cholesterol 61 mg/dL (29-60) H 06/04/17 13:37 Vitamin B12 346 pg/mL (239-931) 06/04/17 13:37 Folate > 20.0 ng/mL 06/04/17 13:37 Procalcitonin 0.09 NG/ML (0.19-0.49) L 06/04/17 13:37 Urine Color Yellow (YELLOW) 06/04/17 15:50 Urine Appearance Clear (CLEAR) 06/04/17 15:50 Urine pH 7.0 (4.7-8.0) 06/04/17 15:50 Ur Specific [place] 1.015 (1.005-1.035) 06/04/17 15:50 Urine Protein Negative mg/dL (<30 mg/dL) 06/04/17 15:50 Urine Glucose (UA) Negative mg/dL (NEGATIVE) 06/04/17 15:50 Urine Ketones Trace mg/dL (NEGATIVE) H 06/04/17 15:50 Urine Blood Negative (NEGATIVE) 06/04/17 15:50 Urine Nitrate Negative (NEGATIVE) 06/04/17 15:50 Urine Bilirubin Negative (NEGATIVE) 06/04/17 15:50 Urine Urobilinogen 2.0 E.U./dL (<1 E.U./dL) H 06/04/17 15:50 Ur Leukocyte Esterase Small Gal/uL (NEGATIVE) H 06/04/17 15:50 Urine RBC 0 - 2 /hpf (0-2) 06/04/17 15:50 Urine WBC 2 - 5 /hpf (0-6) 06/04/17 15:50 Ur Epithelial Cells 1 - 3 /hpf (0-5) 06/04/17 15:50 Urine Bacteria Small (NEG) 06/04/17 15:50 Urine HCG, Qual Negative (NEGATIVE) 06/04/17 15:50 Salicylates < 1 mg/dL (2.0-20.0) L 06/04/17 13:37 Urine Opiates Screen Positive (NEGATIVE) H 06/04/17 15:50 Urine Methadone Screen Positive (NEGATIVE) H 06/04/17 15:50 Acetaminophen < 10.0 ug/ml (10.0-20.0) L 06/04/17 13:37 Ur Barbiturates Screen Negative (NEGATIVE) 06/04/17 15:50 Ur Phencyclidine Scrn Negative (NEGATIVE) 06/04/17 15:50 Ur Amphetamines Screen Negative (NEGATIVE) 06/04/17 15:50 U Benzodiazepines Scrn Negative (NEGATIVE) 06/04/17 15:50 U Oth Cocaine Metabols Positive (NEGATIVE) H 06/04/17 15:50 U Cannabinoids Screen Negative (NEGATIVE) 06/04/17 15:50 Alcohol, Quantitative < 10 mg/dL (0-10) 06/04/17 13:37 HIV 1&2 Ag/Ab, 4th Gen Nonreactive (Nonreactive) 06/06/17 07:45 Influenza Typ A,B (EIA) Negative for flu a/b (NEGATIVE) 06/04/17 20:50 - Hospital Course Hospital Course: A 36 year old female, with PMH polysubstance use, endocarditis, hep C, alcohol use, multiple suicide attempts, psych disorders, presents for depression for past few months. Pt states that she is homeless, has been feeling down, and is have suicidal ideations with a plan to cut her wrist. Pt is quite drowsy/ intoxicated on exam, states that she "will talk in the morning." Pt reports a dry cough, subjective fevers for past few days. Denies nasal/chest congestion, body aches, sore throat, headache, chest pain, sob, weight loss, hemoptysis, urinary symptoms, leg swelling. Patient seen by Dr. Hernandez, patient suggested to follow up within [address] Sotelo consulted as well for psychiatry admission. Patient was treated for pneumonia, found to have uti, with urine culture with sensitivities. Patient found to have left forearm and hand swelling and was given antibiotics. XRay did not show any fractures. No clinical indication to workup osteomyelitis at the time. - Date & Time of H&P Date of H&P: 06/08/17 Time of H&P: 11:25 Discharge Exam - Head Exam Head Exam: ATRAUMATIC, NORMAL INSPECTION, NORMOCEPHALIC - Eye Exam Eye Exam: EOMI, Normal appearance - ENT Exam ENT Exam: Mucous Membranes Moist - Respiratory Exam Respiratory Exam: NORMAL BREATHING PATTERN, UNREMARKABLE - Cardiovascular Exam Cardiovascular Exam: REGULAR RHYTHM, +S1, +S2 - GI/Abdominal Exam GI & Abdominal Exam: Normal Bowel Sounds, Soft. absent: Firm, Guarding - Extremities Exam Extremities exam: full ROM Additional comments: left arm swelling with erythema of fingers - Back Exam Back exam: FULL ROM. absent: CVA tenderness (L), CVA tenderness (R) - Neurological Exam Neurological exam: Alert, CN II-XII Intact, Oriented x3 - Psychiatric Exam Psychiatric exam: Normal Affect (s), Normal Mood - Skin Skin Exam: Dry, Intact, Normal Color, Warm Discharge Plan - Follow Up Plan Condition: STABLE Disposition: DISCHARGE TO PSYCH HOSPITAL Referrals: Maynor Weathers MD [Primary Care Provider] -
[2017-06-08] MEDS: Cefpodoxime (Vantin) 200 mg Tab PO SCH ×2 (11:26→21:32)
[2017-06-08] MEDS ORDERED: POLYETHYLENE GLYCOL 3350 17 GM/Dose PACKET PO ONE (12:58)
[2017-06-08] MEDS ORDERED: Magnesium Citrate Oral SOL (300 ml) PO ONE (12:58)
--- NOTE | 2017-06-08 16:09 | CP.PCM.PN ---
<Jodie Odonnell - Last Filed: 06/08/17 16:14> Subjective - Date & Time of Evaluation Date of Evaluation: 06/08/17 Time of Evaluation: 16:06 - Subjective Subjective: Progress note Patient seen and examined at bedside. Patient had no complaints overnight. Code tony was called because patient was agitated. Please see nursing notes for more information. Psychiatry came to see the patient. Patient signed the contract to admit to psychiatry and proceeded to rip the contract. Psychiatry is requesting [facility] screeners to come see the patient for involuntary admission Objective - Vital Signs/Intake and Output Vital Signs (last 24 hours): Temp Pulse Resp BP Pulse Ox 97.6 F 88 20 128/87 100 06/08/17 07:54 06/08/17 07:54 06/08/17 07:54 06/08/17 07:54 06/08/17 07:54 Intake and Output: 06/08/17 06/08/17 06:59 18:59 Intake Total 720 Balance 720 - Medications Medications: Current Medications Amitriptyline HCl (Elavil) 25 mg PO HS MICHAEL Last Admin: 06/07/17 22:57 Dose: 25 mg Azithromycin (Zithromax) 500 mg PO DAILY MICHAEL Last Admin: 06/08/17 09:33 Dose: 500 mg Bupropion HCl (Wellbutrin) 75 mg PO DAILY MICHAEL Last Admin: 06/08/17 09:33 Dose: 75 mg Cefpodoxime Proxetil (Vantin) 200 mg PO Q12 MICHAEL Stop: 06/11/17 10:59 Last Admin: 06/08/17 11:26 Dose: 200 mg Clonazepam (Klonopin) 2 mg PO BID MICHAEL PRN Reason: Protocol Last Admin: 06/08/17 09:34 Dose: 2 mg Enoxaparin Sodium (Lovenox) 30 mg SC DAILY MICHAEL PRN Reason: Protocol Last Admin: 06/08/17 09:35 Dose: 30 mg Folic Acid (Folic Acid) 1 mg PO DAILY MICHAEL Last Admin: 06/08/17 09:33 Dose: 1 mg Gabapentin (Neurontin) 600 mg PO TID MICHAEL PRN Reason: Protocol Last Admin: 06/08/17 14:54 Dose: 600 mg Lorazepam (Ativan) 1 mg IVP Q4H PRN; Protocol PRN Reason: Symptoms of alcohol withdrawl Stop: 06/09/17 08:00 Last Admin: 06/08/17 12:40 Dose: 1 mg Multivitamins (Thera Tab) 1 tab PO 0800 [facility] Last Admin: 06/08/17 09:32 Dose: 1 tab Nicotine (Nicoderm Cq) 1 patch TD DAILY [facility] Last Admin: 06/08/17 09:31 Dose: 1 patch Pantoprazole Sodium (Protonix Ec Tab) 20 mg PO 0600 [facility] Last Admin: 06/08/17 05:36 Dose: 20 mg Polyethylene Glycol (Miralax) 17 gm PO BID PRN PRN Reason: Constipation Prednisone (Prednisone Tab) 40 mg PO DAILY [facility] Stop: 06/10/17 15:46 Last Admin: 06/08/17 09:33 Dose: 40 mg Quetiapine Fumarate (Seroquel Xr) 300 mg PO HS [facility] PRN Reason: Protocol Last Admin: 06/07/17 22:56 Dose: 300 mg Thiamine HCl (Vitamin B1 Tab) 100 mg PO DAILY [facility] Last Admin: 06/08/17 09:34 Dose: 100 mg Trimethoprim/Sulfamethoxazole (Bactrim Ss Tab) 1 tab PO Q6 MICHAEL PRN Reason: Protocol Last Admin: 06/08/17 12:39 Dose: 1 tab Vitamin A (Vitamin A & D Oint Ud Foilpak) 1 ea TOP Q8 PRN PRN Reason: Itching / Pruritus Last Admin: 06/08/17 09:32 Dose: 1 ea Ziprasidone (Geodon Inj) 20 mg IM Q6H PRN; Protocol PRN Reason: Agitation Last Admin: 06/08/17 13:24 Dose: 20 mg - Labs Labs: 06/08/17 07:00 06/08/17 07:00 - Constitutional Appears: Non-toxic, No Acute Distress, Agitated - Head Exam Head Exam: ATRAUMATIC, NORMAL INSPECTION, NORMOCEPHALIC - Eye Exam Eye Exam: EOMI, Normal appearance, PERRL Pupil Exam: NORMAL ACCOMODATION, PERRL - ENT Exam ENT Exam: Mucous Membranes Moist, Normal Exam - Respiratory Exam Respiratory Exam: Clear to Ausculation Bilateral, NORMAL BREATHING PATTERN. absent: Accessory Muscle Use - Cardiovascular Exam Cardiovascular Exam: REGULAR RHYTHM, +S1, +S2. absent: Bradycardia, Tachycardia - GI/Abdominal Exam GI & Abdominal Exam: Soft, Normal Bowel Sounds. absent: Tenderness, Hyperactive Bowel Sounds - Extremities Exam Extremities Exam: Full ROM Additional comments: left upper extremity swelling is less than yesterday. less erythema than yesterday. no pitting edema - Back Exam Back Exam: Full ROM, NORMAL INSPECTION. absent: CVA tenderness (L), CVA tenderness (R) - Neurological Exam Neurological Exam: Awake, CN II-XII Intact, Oriented x3 - Psychiatric Exam Psychiatric exam: Normal Affect, Normal Mood. absent: Flat Affect - Skin Skin Exam: Dry, Intact, Normal Color, Warm Assessment and Plan - Assessment and Plan (Free Text) Assessment: 36 year old female with a past medical history significant for endocarditis, hepatitis C, polysubstance abuse, alcohol abuse/withdrawal, skin abscesses, bipolar, and antisocial personality disorder, presents for depression and suicidal ideations, found to have bilateral infiltrates on chest CT. Suicidal Ideation/depression: - 1:1 watch - Psych consult. F/u recs. Bilateral infiltrates: 2/2 CAP - Given Levaquin in ED. - Chest CT showed: 7 mm nodule at the right pulmonary apex. Within the right upper lobe, there is a small consolidation measuring 1.4 cm in diameter. Multiple groundglass density infiltrates are visualized within the lungs bilaterally. These infiltrates are suggestive of an infectious or inflammatory etiology, although malignancy cannot be excluded. Clinical correlation and a follow-up CT with IV contrast in one month is recommended. There is enlarged right axillary lymph node measuring 1.8 cm in length. A borderline enlarged left axillary lymph node is visualized. Multiple mediastinal lymph nodes are identified, a few which are borderline enlarged. - F/u procal - Afebrile, no leukocytosis Pulmonary Consult: follow up CT with contrast. Patient had a dry CT chest done while in ED. continue IV antibiotics for CAP, discharge on oral antibiotics or admit to psychiatry on oral antibiotics. Pulmonary nodule: - Chest CT showed: 7 mm nodule at the right pulmonary apex. There is enlarged right axillary lymph node measuring 1.8 cm in length. A borderline enlarged left axillary lymph node is visualized. Multiple mediastinal lymph nodes are identified, a few which are borderline enlarged. - No previous chest CT found on records. - Obtain previous records - ask in AM once pt is sober - Will need follow up CT in 6-12 months. - Pulmonary Consult: follow up CT with IV contrast in 4-6 weeks. Patient had a dry CT chest done while in ED. continue IV antibiotics for CAP, discharge on oral antibiotics or admit to psychiatry on oral antibiotics. left arm edema, possible cellulitis, history of MRSA cellulitis of right arm left hand 3 view xray cefpodoxime 200mg PO BID Anemia: Normocytic, 2/2 likely ACD vs mixed - Hgb 10.4 on admission, previous admissions range hgb 12-14 - obtain iron studies, vitamin B12, folate - daily cbc - Cont to monitor Alcohol abuse/withdrawal: - CIWA - Seizure/fall/aspiration precautions - Ativan prn - Banana bag @ 100 in ED - thiamine, folic acid Hx of cocaine/methadone use: - UDS pos opiates, methadone, cocaine - Advised cessation - [place] [id number] [address] was called 06/05 and patient was confirmed to have a dose of 170mg Q daily with last administration 06/02 and patient was sent home with a bottle 06/03 06/05 80mg methadone was given in the hospital 06/06 110 mg methadone was given in the hospital, no signs of withdrawal 06/07 140 mg methadone, no signs of withdrawal Hx of bipolar/depression/psych: - C/w home psych meds - Psych Eval: patient is cleared to admit to psychiatry when patient is on oral medication and also when a bed is available. Hx of tobacco use: - advised cessation - nicotine patch PPX: Pepcid, Lovenox Diet: Regular Psychiatry said patient will be interviewed tomorrow for admission to psych if patient is agreeable. Patient has been refusing interviews per psychiatry discussed with Dr. Martha Odonnell, PGY1 <Hien Thomas - Last Filed: 06/09/17 07:12> Objective - Vital Signs/Intake and Output Vital Signs (last 24 hours): Temp Pulse Resp BP Pulse Ox 97.8 F 109 H 20 140/92 H 100 06/08/17 16:06 06/08/17 16:06 06/08/17 16:06 06/08/17 16:06 06/08/17 16:06 Intake and Output: 06/09/17 06/09/17 06:59 18:59 Intake Total 480 Balance 480 - Medications Medications: Current Medications Amitriptyline HCl (Elavil) 25 mg PO HS [facility] Last Admin: 06/08/17 21:33 Dose: 25 mg Azithromycin (Zithromax) 500 mg PO DAILY [facility] Last Admin: 06/08/17 09:33 Dose: 500 mg Bupropion HCl (Wellbutrin) 75 mg PO DAILY [facility] Last Admin: 06/08/17 09:33 Dose: 75 mg Cefpodoxime Proxetil (Vantin) 200 mg PO Q12 MIC[facility]EL Stop: 06/11/17 10:59 Last Admin: 06/08/17 21:32 Dose: 200 mg Clonazepam (Klonopin) 2 mg PO BID MICHAEL PRN Reason: Protocol Last Admin: 06/08/17 17:51 Dose: 2 mg Enoxaparin Sodium (Lovenox) 30 mg SC DAILY [facility] PRN Reason: Protocol Last Admin: 06/08/17 09:35 Dose: 30 mg Folic Acid (Folic Acid) 1 mg PO DAILY [facility] Last Admin: 06/08/17 09:33 Dose: 1 mg Gabapentin (Neurontin) 600 mg PO TID [facility] PRN Reason: Protocol Last Admin: 06/08/17 17:51 Dose: 600 mg Lorazepam (Ativan) 2 mg IVP Q6H PRN; Protocol PRN Reason: Anxiety Last Admin: 06/08/17 20:06 Dose: 2 mg Multivitamins (Thera Tab) 1 tab PO 0800 [facility] Last Admin: 06/08/17 09:32 Dose: 1 tab Nicotine (Nicoderm Cq) 1 patch TD DAILY [facility] Last Admin: 06/08/17 09:31 Dose: 1 patch Pantoprazole Sodium (Protonix Ec Tab) 20 mg PO 0600 [facility] Last Admin: 06/08/17 05:36 Dose: 20 mg Polyethylene Glycol (Miralax) 17 gm PO BID PRN PRN Reason: Constipation Last Admin: 06/08/17 19:12 Dose: 17 gm Prednisone (Prednisone Tab) 40 mg PO DAILY [facility] Stop: 06/10/17 15:46 Last Admin: 06/08/17 09:33 Dose: 40 mg Quetiapine Fumarate (Seroquel Xr) 300 mg PO 1700 [facility] PRN Reason: Protocol Thiamine HCl (Vitamin B1 Tab) 100 mg PO DAILY [facility] Last Admin: 06/08/17 09:34 Dose: 100 mg Trimethoprim/Sulfamethoxazole (Bactrim Ss Tab) 1 tab PO Q6 [facility]EL PRN Reason: Protocol Last Admin: 06/09/17 00:30 Dose: 1 tab Vitamin A (Vitamin A & D Oint Ud Foilpak) 1 ea TOP Q8 PRN PRN Reason: Itching / Pruritus Last Admin: 06/08/17 09:32 Dose: 1 ea Ziprasidone (Geodon Inj) 20 mg IM Q6H PRN; Protocol PRN Reason: Agitation Last Admin: 06/08/17 13:24 Dose: 20 mg - Labs Labs: 06/08/17 07:00 06/08/17 07:00 Attending/Attestation - Attestation I have personally seen and examined this patient.: Yes I have fully participated in the care of the patient.: Yes I have reviewed all pertinent clinical information, including history, physical exam and plan: Yes Notes (Text): 06/08/17 36 year old female with past medical history of hepatitis C, polysubstance abuse , hepatitis C, alcohol abuse and bipolar/depression who presented with depression and SI. Continue with 1:1 observation. She is being followed by psychiatrist. Plan was to transfer to inpatient psychiatric unit which patient was initially agreeable to. However she later refused. [facility] screeners requested by psychiatrist. She was also found to have bilateral infiltrates, 7 mm pulmonary nodule and enlarged right axillary lymph node. She was seen by pulmonary who recommended to continue with antibiotics and steroids and to repeat CT chest with contrast in one month. She was counselled on risks of continued substance abuse. Counselled on smoking and alcohol cessation. Monitor for withdrawal symptoms. She has intermittent episodes of confusion and agitation as per nursing staff. Psychiatry is following as above. She is on methadone for maintainence therapy. Continue limb elevation and antibiotics for left hand/forearm swelling. LUE doppler and xray hand were negative. Hien Thomas MD Hospitalist.
[2017-06-08] MEDS: POLYETHYLENE GLYCOL 3350 17 GM/Dose PACKET PO PRN (19:12)
[2017-06-08] MEDS ORDERED: DiphenhydrAMINE 50 mg/ml Inj IM ONE (19:21)
[2017-06-08] MEDS: QUEtiapine 300 mg XR Tab PO SCH (21:33)
[2017-06-09] MEDS: Tmp-Smz 400 mg-80 mg SS Tab PO SCH ×3 (00:30→14:22)
--- NOTE | 2017-06-09 06:56 | CP.PCM.DIS ---
<Jodie Odonnell - Last Filed: 06/09/17 13:21> Provider - Provider Date of Admission: 06/04/17 20:09 Attending physician: Hien Thomas MD Primary care physician: Maynor Weathers MD Consults: Consults: Dr. Hernandez, Dr. Sotelo Time Spent in preparation of Discharge (in minutes): 35 Hospital Course - Lab Results Lab Results: Most Recent Lab Values WBC 10.2 10^3/ul (4.5-11.0) D 06/08/17 07:00 RBC 3.39 10^6/uL (3.5-6.1) L 06/08/17 07:00 Hgb 10.2 g/dL (12.0-16.0) L 06/08/17 07:00 Hct 32.1 % (36.0-48.0) L 06/08/17 07:00 MCV 94.7 fl (80.0-105.0) 06/08/17 07:00 MCH 30.1 pg (25.0-35.0) 06/08/17 07:00 MCHC 31.8 g/dl (31.0-37.0) 06/08/17 07:00 RDW 14.9 % (11.5-14.5) H 06/08/17 07:00 Plt Count 331 10^3/uL (120.0-450.0) 06/08/17 07:00 MPV 9.0 fl (7.0-11.0) 06/08/17 07:00 Gran % 67.3 % (50.0-68.0) 06/08/17 07:00 Lymph % (Auto) 23.0 % (22.0-35.0) 06/08/17 07:00 [place] % (Auto) 8.3 % (1.0-6.0) H 06/08/17 07:00 Eos % (Auto) 1.2 % (1.5-5.0) L 06/08/17 07:00 Baso % (Auto) 0.2 % (0.0-3.0) 06/08/17 07:00 Gran # 6.86 (1.4-6.5) H 06/08/17 07:00 Lymph # (Auto) 2.3 (1.2-3.4) 06/08/17 07:00 [place] # (Auto) 0.8 (0.1-0.6) H 06/08/17 07:00 Eos # (Auto) 0.1 (0.0-0.7) 06/08/17 07:00 Baso # (Auto) 0.02 K/mm3 (0.0-2.0) 06/08/17 07:00 Sodium 139 mmol/L (132-148) 06/08/17 07:00 Potassium 3.4 mmol/L (3.6-5.0) L 06/08/17 07:00 Chloride 104 mmol/L (98-107) 06/08/17 07:00 Carbon Dioxide 24 mmol/L (21-33) 06/08/17 07:00 Anion Gap 14 (10-20) 06/08/17 07:00 BUN 14 mg/dL (7-21) 06/08/17 07:00 Creatinine 0.6 mg/dl (0.7-1.2) L 06/08/17 07:00 Est GFR ( Amer) > 60 06/08/17 07:00 Est GFR (Non-Af Amer) > 60 06/08/17 07:00 Random Glucose 125 mg/dL (70-110) H 06/08/17 07:00 Hemoglobin A1c 5.1 % (4.2-6.5) 06/04/17 13:37 Calcium 9.3 mg/dL (8.4-10.5) 06/08/17 07:00 Phosphorus 4.0 mg/dL (2.5-4.5) 06/08/17 07:00 Magnesium 1.9 mg/dL (1.7-2.2) 06/08/17 07:00 Ferritin 222.0 ng/mL 06/04/17 13:37 Total Bilirubin 0.1 mg/dL (0.2-1.3) L 06/08/17 07:00 AST 31 U/L (14-36) 06/08/17 07:00 ALT 30 U/L (7-56) 06/08/17 07:00 Alkaline Phosphatase 74 U/L (38-126) 06/08/17 07:00 Total Protein 6.7 g/dL (5.8-8.3) 06/08/17 07:00 Albumin 3.5 g/dL (3.0-4.8) 06/08/17 07:00 Globulin 3.2 gm/dL 06/08/17 07:00 Albumin/Globulin Ratio 1.1 (1.1-1.8) 06/08/17 07:00 Triglycerides 38 mg/dL (35-160) 06/04/17 13:37 Cholesterol 142 mg/dL (130-200) 06/04/17 13:37 LDL Cholesterol Direct 61 mg/dL (0-129) 06/04/17 13:37 HDL Cholesterol 61 mg/dL (29-60) H 06/04/17 13:37 Vitamin B12 346 pg/mL (239-931) 06/04/17 13:37 Folate > 20.0 ng/mL 06/04/17 13:37 Procalcitonin 0.09 NG/ML (0.19-0.49) L 06/04/17 13:37 Urine Color Yellow (YELLOW) 06/04/17 15:50 Urine Appearance Clear (CLEAR) 06/04/17 15:50 Urine pH 7.0 (4.7-8.0) 06/04/17 15:50 Ur Specific Kamas 1.015 (1.005-1.035) 06/04/17 15:50 Urine Protein Negative mg/dL (<30 mg/dL) 06/04/17 15:50 Urine Glucose (UA) Negative mg/dL (NEGATIVE) 06/04/17 15:50 Urine Ketones Trace mg/dL (NEGATIVE) H 06/04/17 15:50 Urine Blood Negative (NEGATIVE) 06/04/17 15:50 Urine Nitrate Negative (NEGATIVE) 06/04/17 15:50 Urine Bilirubin Negative (NEGATIVE) 06/04/17 15:50 Urine Urobilinogen 2.0 E.U./dL (<1 E.U./dL) H 06/04/17 15:50 Ur Leukocyte Esterase Small Gal/uL (NEGATIVE) H 06/04/17 15:50 Urine RBC 0 - 2 /hpf (0-2) 06/04/17 15:50 Urine WBC 2 - 5 /hpf (0-6) 06/04/17 15:50 Ur Epithelial Cells 1 - 3 /hpf (0-5) 06/04/17 15:50 Urine Bacteria Small (NEG) 06/04/17 15:50 Urine HCG, Qual Negative (NEGATIVE) 06/04/17 15:50 Salicylates < 1 mg/dL (2.0-20.0) L 06/04/17 13:37 Urine Opiates Screen Positive (NEGATIVE) H 06/04/17 15:50 Urine Methadone Screen Positive (NEGATIVE) H 06/04/17 15:50 Acetaminophen < 10.0 ug/ml (10.0-20.0) L 06/04/17 13:37 Ur Barbiturates Screen Negative (NEGATIVE) 06/04/17 15:50 Ur Phencyclidine Scrn Negative (NEGATIVE) 06/04/17 15:50 Ur Amphetamines Screen Negative (NEGATIVE) 06/04/17 15:50 U Benzodiazepines Scrn Negative (NEGATIVE) 06/04/17 15:50 U Oth Cocaine Metabols Positive (NEGATIVE) H 06/04/17 15:50 U Cannabinoids Screen Negative (NEGATIVE) 06/04/17 15:50 Alcohol, Quantitative < 10 mg/dL (0-10) 06/04/17 13:37 HIV 1&2 Ag/Ab, 4th Gen Nonreactive (Nonreactive) 06/06/17 07:45 Influenza Typ A,B (EIA) Negative for flu a/b (NEGATIVE) 06/04/17 20:50 - Hospital Course Hospital Course: A 36 year old female, with PMH polysubstance use, endocarditis, hep C, alcohol use, multiple suicide attempts, psych disorders, presents for depression for past few months. Pt states that she is homeless, has been feeling down, and is have suicidal ideations with a plan to cut her wrist. Pt is quite drowsy/ intoxicated on exam, states that she "will talk in the morning." Pt reports a dry cough, subjective fevers for past few days. Denies nasal/chest congestion, body aches, sore throat, headache, chest pain, sob, weight loss, hemoptysis, urinary symptoms, leg swelling. Patient was treated for pneumonia with Dr. Hernandez consulted. Methadone dose was confirmed with [facility] to be 170mg PO Daily. Patient was found to have left forearm and left hand edema with erythema of the fingers on the left. Patient was treated for cellulitis, and is resolving. Patient switched to PO medications. Patient was denying psychiatry interviews until 06/08. Patient signed the contract for admission to psych and tore up the contract. Psychiatrist requested [facility] involuntary psych admit and for screeners to come see the patient. 06/09 Patient agreed to be admitted to psychiatry. Dr. Storm admitted patient to psychiatry. Patient discharged to continue current antibiotics Consults: Dr. Hernandez, Dr. Sotelo - Date & Time of H&P Date of H&P: 06/09/17 Time of H&P: 13:22 Discharge Exam - Head Exam Head Exam: ATRAUMATIC, NORMAL INSPECTION, NORMOCEPHALIC Discharge Plan - Follow Up Plan Condition: STABLE Disposition: DISCHARGE TO PSYCH HOSPITAL Instructions: Pneumonia, Adult (DC), Drug Abuse and Drug Addiction (DC), Alcohol Abuse and Alcoholism (DC), Effects of Alcohol on Your Health, Drug Abuse Treatment, Depression (DC) Referrals: Maynor Weathers MD [Primary Care Provider] - <Hien Thomas - Last Filed: 06/09/17 15:30> Provider - Provider Date of Admission: 06/04/17 20:09 Attending physician: Hien Thomas MD Primary care physician: Manyor Weathers MD Hospital Course - Lab Results Lab Results: Most Recent Lab Values WBC 12.9 10^3/ul (4.5-11.0) H D 06/09/17 08:26 RBC 3.66 10^6/uL (3.5-6.1) 06/09/17 08:26 Hgb 11.0 g/dL (12.0-16.0) L 06/09/17 08:26 Hct 34.6 % (36.0-48.0) L 06/09/17 08:26 MCV 94.5 fl (80.0-105.0) 06/09/17 08:26 MCH 30.1 pg (25.0-35.0) 06/09/17 08:26 MCHC 31.8 g/dl (31.0-37.0) 06/09/17 08:26 RDW 14.4 % (11.5-14.5) 06/09/17 08:26 Plt Count 341 10^3/uL (120.0-450.0) 06/09/17 08:26 MPV 8.9 fl (7.0-11.0) 06/09/17 08:26 Gran % 64.9 % (50.0-68.0) 06/09/17 08:26 Lymph % (Auto) 24.9 % (22.0-35.0) 06/09/17 08:26 [place] % (Auto) 8.0 % (1.0-6.0) H 06/09/17 08:26 Eos % (Auto) 1.9 % (1.5-5.0) 06/09/17 08:26 Baso % (Auto) 0.3 % (0.0-3.0) 06/09/17 08:26 Gran # 8.35 (1.4-6.5) H 06/09/17 08:26 Lymph # (Auto) 3.2 (1.2-3.4) 06/09/17 08:26 [place] # (Auto) 1.0 (0.1-0.6) H 06/09/17 08:26 Eos # (Auto) 0.2 (0.0-0.7) 06/09/17 08:26 Baso # (Auto) 0.04 K/mm3 (0.0-2.0) 06/09/17 08:26 Sodium 138 mmol/L (132-148) 06/09/17 08:26 Potassium 4.0 mmol/L (3.6-5.0) 06/09/17 08:26 Chloride 100 mmol/L (98-107) 06/09/17 08:26 Carbon Dioxide 27 mmol/L (21-33) 06/09/17 08:26 Anion Gap 16 (10-20) 06/09/17 08:26 BUN 16 mg/dL (7-21) 06/09/17 08:26 Creatinine 0.6 mg/dl (0.7-1.2) L 06/09/17 08:26 Est GFR ( Amer) > 60 06/09/17 08:26 Est GFR (Non-Af Amer) > 60 06/09/17 08:26 Random Glucose 133 mg/dL (70-110) H 06/09/17 08:26 Hemoglobin A1c 5.1 % (4.2-6.5) 06/04/17 13:37 Calcium 9.6 mg/dL (8.4-10.5) 06/09/17 08:26 Phosphorus 3.2 mg/dL (2.5-4.5) 06/09/17 08:26 Magnesium 2.1 mg/dL (1.7-2.2) 06/09/17 08:26 Ferritin 222.0 ng/mL 06/04/17 13:37 Total Bilirubin 0.2 mg/dL (0.2-1.3) 06/09/17 08:26 AST 30 U/L (14-36) 06/09/17 08:26 ALT 34 U/L (7-56) 06/09/17 08:26 Alkaline Phosphatase 78 U/L (38-126) 06/09/17 08:26 Total Protein 7.1 g/dL (5.8-8.3) 06/09/17 08:26 Albumin 3.7 g/dL (3.0-4.8) 06/09/17 08:26 Globulin 3.3 gm/dL 06/09/17 08:26 Albumin/Globulin Ratio 1.1 (1.1-1.8) 06/09/17 08:26 Triglycerides 38 mg/dL (35-160) 06/04/17 13:37 Cholesterol 142 mg/dL (130-200) 06/04/17 13:37 LDL Cholesterol Direct 61 mg/dL (0-129) 06/04/17 13:37 HDL Cholesterol 61 mg/dL (29-60) H 06/04/17 13:37 Vitamin B12 346 pg/mL (239-931) 06/04/17 13:37 Folate > 20.0 ng/mL 06/04/17 13:37 Procalcitonin 0.09 NG/ML (0.19-0.49) L 06/04/17 13:37 Urine Color Yellow (YELLOW) 06/04/17 15:50 Urine Appearance Clear (CLEAR) 06/04/17 15:50 Urine pH 7.0 (4.7-8.0) 06/04/17 15:50 Ur Specific [place] 1.015 (1.005-1.035) 06/04/17 15:50 Urine Protein Negative mg/dL (<30 mg/dL) 06/04/17 15:50 Urine Glucose (UA) Negative mg/dL (NEGATIVE) 06/04/17 15:50 Urine Ketones Trace mg/dL (NEGATIVE) H 06/04/17 15:50 Urine Blood Negative (NEGATIVE) 06/04/17 15:50 Urine Nitrate Negative (NEGATIVE) 06/04/17 15:50 Urine Bilirubin Negative (NEGATIVE) 06/04/17 15:50 Urine Urobilinogen 2.0 E.U./dL (<1 E.U./dL) H 06/04/17 15:50 Ur Leukocyte Esterase Small Gal/uL (NEGATIVE) H 06/04/17 15:50 Urine RBC 0 - 2 /hpf (0-2) 06/04/17 15:50 Urine WBC 2 - 5 /hpf (0-6) 06/04/17 15:50 Ur Epithelial Cells 1 - 3 /hpf (0-5) 06/04/17 15:50 Urine Bacteria Small (NEG) 06/04/17 15:50 Urine HCG, Qual Negative (NEGATIVE) 06/04/17 15:50 Salicylates < 1 mg/dL (2.0-20.0) L 06/04/17 13:37 Urine Opiates Screen Positive (NEGATIVE) H 06/04/17 15:50 Urine Methadone Screen Positive (NEGATIVE) H 06/04/17 15:50 Acetaminophen < 10.0 ug/ml (10.0-20.0) L 06/04/17 13:37 Ur Barbiturates Screen Negative (NEGATIVE) 06/04/17 15:50 Ur Phencyclidine Scrn Negative (NEGATIVE) 06/04/17 15:50 Ur Amphetamines Screen Negative (NEGATIVE) 06/04/17 15:50 U Benzodiazepines Scrn Negative (NEGATIVE) 06/04/17 15:50 U Oth Cocaine Metabols Positive (NEGATIVE) H 06/04/17 15:50 U Cannabinoids Screen Negative (NEGATIVE) 06/04/17 15:50 Alcohol, Quantitative < 10 mg/dL (0-10) 06/04/17 13:37 HIV 1&2 Ag/Ab, 4th Gen Nonreactive (Nonreactive) 06/06/17 07:45 Influenza Typ A,B (EIA) Negative for flu a/b (NEGATIVE) 06/04/17 20:50 Discharge Exam - Head Exam Head Exam: NORMAL INSPECTION - Eye Exam Eye Exam: EOMI - ENT Exam ENT Exam: Normal Exam - Neck Exam Neck exam: Full Rom - Respiratory Exam Respiratory Exam: Clear to PA & Lateral. absent: Rhonchi, Wheezes - Cardiovascular Exam Cardiovascular Exam: REGULAR RHYTHM, +S1, +S2 - GI/Abdominal Exam GI & Abdominal Exam: Normal Bowel Sounds, Soft. absent: Organomegaly, Tenderness - Extremities Exam Additional comments: LUE (hand/wrist) swelling improving - Neurological Exam Neurological exam: Alert, Oriented x3 Attending/Attestation - Attestation I have personally seen and examined this patient.: Yes I have fully participated in the care of the patient.: Yes I have reviewed all pertinent clinical information, including history, physical exam and plan: Yes Notes (Text): 06/09/17 15:26 36 year old female with past medical history of hepatitis C, polysubstance abuse , hepatitis C, alcohol abuse and bipolar/depression who presented with depression and SI. She was placed on 1:1 observation. She was seen by psychiatrist who offered inpatient psychiatric treatment. Patient refused yesterday but today is agreeable. She was also found to have bilateral infiltrates, 7 mm pulmonary nodule and enlarged right axillary lymph node. She was seen by pulmonary who recommended to continue with antibiotics and steroids and to repeat CT chest with contrast in one month. She was counselled on risks of continued substance abuse. Counselled on smoking and alcohol cessation. She is on methadone for maintainence therapy. Continue limb elevation and antibiotics for left hand/forearm swelling. LUE doppler and xray hand were negative. Patient will be transferred to inpatient psychiatric unit. Continue with po antibiotics and steroids. Will follow up in AM. Hien Thomas MD Hospitalist.
[2017-06-09 08:27] VITALS: BP 130/93; PULSE 84; RESP 22; TEMP 97.7; O2SAT 99
[2017-06-09 08:33] LABS: BASO # 0.04 K/mm3 (0.0-2.0); BASO % 0.3 % (0.0-3.0); EOS # 0.2 (0.0-0.7); EOS % 1.9 % (1.5-5.0); GRAN # 8.35 (1.4-6.5); GRAN % 64.9 % (50.0-68.0); LYMPH # 3.2 (1.2-3.4); LYMPH % 24.9 % (22.0-35.0); MEAN CELL VOLUME 94.5 fl (80.0-105.0); MEAN CORPUSCULAR HEMOGLOBIN 30.1 pg (25.0-35.0); MEAN CORPUSCULAR HGB CONC 31.8 g/dl (31.0-37.0); MEAN PLATELET VOLUME 8.9 fl (7.0-11.0); RBC 3.66 10^6/uL (3.5-6.1); RED CELL DISTRIBUTION WIDTH 14.4 % (11.5-14.5); WHITE BLOOD COUNT 12.9 10^3/ul (4.5-11.0)
[2017-06-09 08:51] LABS: ALB/GLOB RATIO 1.1 (1.1-1.8); ALBUMIN 3.7 g/dL (3.0-4.8); ALT/SGPT 34 U/L (7-56); AST/SGOT 30 U/L (14-36); BLOOD UREA NITROGEN 16 mg/dL (7-21); CALCIUM 9.6 mg/dL (8.4-10.5); GFR AFRICAN-AMERICAN > 60; GFR NON-AFRICAN AMERICAN > 60; MAGNESIUM 2.1 mg/dL (1.7-2.2)
[2017-06-09] MEDS: Multivitamin Therapeutic Tab PO SCH (09:27)
[2017-06-09] MEDS: Cefpodoxime (Vantin) 200 mg Tab PO SCH (09:27)
[2017-06-09] MEDS: POLYETHYLENE GLYCOL 3350 17 GM/Dose PACKET PO PRN (09:29)
[2017-06-09] MEDS: Enoxaparin 30 mg Syringe SC SCH (09:29)
[2017-06-09] MEDS: Pantoprazole 20 mg EC Tab PO SCH (09:34)
[2017-06-09] MEDS ORDERED: POLYETHYLENE GLYCOL 3350 17 GM/Dose PACKET PO PRN (12:58)
[2017-06-09] MEDS ORDERED: QUEtiapine 300 mg XR Tab PO SCH (17:00)
--- NOTE | 2017-06-11 08:31 | PN ---
DATE: 06/08/2017 FOLLOWUP CONSULTATION PRESENTATION: Patient is a 36-year-old female, seen at bedside. She was originally admitted to [facility] on 06/04/2017 because she wanted evaluation for depression and suicidal ideation, had a plan to cut her wrist. She was admitted medically at that time because she was not able to be medically cleared due to having pneumonia. Consultation was ordered due to suicidal ideation. Patient has been on one-to-one for the duration of her stay. She is accepted to be medically cleared today. CURRENT MEDICATIONS: Include psychiatrically, amitriptyline 25 mg one at bedtime, Wellbutrin 75 mg one p.o. daily, Klonopin 2 mg p.o. b.i.d., folic acid, gabapentin 600 mg one p.o. t.i.d., p.r.n. of Ativan 1 mg IV push q.4 hours, Nicoderm CQ, Seroquel XR 300 mg at bedtime, thiamine, and Geodon for agitation. When patient is seen today, she is alert, disorganized. She is in and out of the bathroom. She has makeup applied. She has got her , she has got her sweater on and sweater off, moving around the room, moving piles of stuff, brushing her hair, fixing her hair, fixing her makeup. She indicates to me that she continues to be suicidal. She continues to wanted to be admitted to . She is willing to sign in and she feels that she needs the treatment. She indicates that she does have identification of what she really wants in terms of treatment is to be able to go into a long-term rehab because that is the way that she is going to get sober; however, this is something that she has been struggling with for a long time. She has little insight into her situation. In the past day or two, the nurses have found medication and syringes, which they confiscated today as she is going to a park she has metal, utensils, she has bleach wipes, which are not acceptable, but she is being observed by the one-to-one. She walks around the unit with the one-to-one and when last seen, she was willing to come to sign into the unit. PHYSICAL EXAMINATION: VITAL SIGNS: Her current vital signs include temperature of 97.8, pulse of 109, blood pressure of 140/92, respiratory rate of 20, and O2 sat of 100%. She has been treated for the pneumonia, for an infection in her hand, and she appears to have stabilized and we are awaiting medical clearance. MENTAL STATUS EXAM: Patient is alert and oriented x3. Her eye contact is good. Her behavior is cooperative, but frenetic. She is all over the place, both verbally and physically , in terms of moving things around her room and physically appears to be moderately agitated; however, she is pleasant and cooperative. Her speech rate and volume are within normal limits. Her mood is effusive. Her speech is overproductive and tangential. At one point, she gets on her knees and begs me to help her to get into rehab once she comes over to the psychiatric unit. She denies being homicidal, indicates that she continues suicidal with a plan to cut her wrist and wants to go in to 5B . She denies the presence of hallucinations, delusions, or paranoia. Her concentration and focus are extremely poor. Memory seems to be poor as a result. Appetite has improved and she actually indicates that she has had some sleep recently and she is doing well with that. DIAGNOSTIC IMPRESSION: Bipolar disorder, current episode hypomanic, polysubstance dependence, opiate dependence, borderline personality disorder. PLAN: Patient is suicidal, has indicated that she is willing to sign into the unit; however, when patient was medically cleared, she signed onto the unit and then decided she did not want to go consent and a code Darren was called. She was agitated and given Geodon IM. She will be screened by [facility] for involuntary admission at this time. This case will be endorsed to Dr. Storm, who will follow up with this patient tomorrow. Thank you for the consult. Olga Ashley APN Julita Sotelo MD
--- NOTE | 2017-06-11 08:36 | CON ---
DATE: 06/09/2017 HISTORY OF PRESENT ILLNESS: Patient is a 36-year-old female who is currently on one-to-one on the medical floor because she had indicated she was suicidal with a plan to cut her wrist. The patient was seen by QUINTIN Ashley, yesterday and was considered to be labile and suicidal. However, generally uncooperative with questioning. Patient has been difficult on the medical floor and verbally abusive towards staff. She initially agrees to sign in yesterday; however, she refuses to sign in and it was determined that screening for [facility] should be initiated due to her reports of suicidal thoughts as well as some confusion. I reviewed recent notes, which indicated the patient continues to be difficult, wandering in the hallways and appearing quite anxious, restless and delusional. Patient apparently was looking for money underneath her bed consider stealing it and generally remains unpredictable. Patient can engage in the conversation with this provider at bedside today, and she continues to report that she is depressed and she is not doing well, and that she really wants help this time. She admits that she has "taken advantage of the system before but now I really need it, and I really want to be helped." Patient is despondent, she states that she has nowhere to go and she really needs help for her substance abuse as well as her depression. Patient admits that she is feeling paranoid towards staff yesterday as well as since her voluntary admission. However at this time, she is more willing to go for psychiatric help on the floor after much reassurance by this provider as well as asked for one-to-one sitter. Patient denies having any hallucination, and as noted, she reports that she has been really depressed and hopeless though she does not have any active suicidal thoughts right now. She is scared about how she will function when she is discharged. Patient does not appear to be hallucinating during the course of our interview, but does appears to be paranoid and a little bit disorganized with scattered thought process. She is labile, and then I do feel that patient is still unpredictable, but I will give her another chance to sign in voluntarily before [place] screeners are contacted as patient reports interest in voluntary admission for stabilization. Vital signs and labs were reviewed by this provider. RELEVANT PSYCHIATRIC MEDICATIONS: Include Elavil 25 mg at bedtime, Wellbutrin 75 mg daily, Klonopin 2 mg p.o. b.i.d., Ativan 2 mg IM q. 6 p.r.n., Seroquel XR 300 mg p.o. at bedtime which was changed to 300 mg p.o. q. 5:00 p.m. by this provider this morning, and Geodon 20 mg IM q. 6 p.r.n. IMPRESSION: Polysubstance dependency, severe; bipolar disorder; depression by history, severe; rule out likely substance-induced mood disorder and contribution of substance-induced psychotic disorder. RECOMMENDATIONS: 1. We will continue with current treatment and medications. Of note, Seroquel XR was changed to 5:00 p.m. as latency of this medication's sedating effect can be up to 5 hours long. If patient is receiving his medication at 10:00 p.m., she will not become sleepy until 03:00 a.m. and I changed it to 5:00 p.m. 2. Psychiatric voluntary unit has been applied that patient is willing to sign in and will follow up with patient this morning and get her consent for voluntary transfer for treatment of depression. [facility] today. Velia Storm MD
== END 2017-06-09 14:48 | DRG 89 ==
LOC: ED 12:31 → ERH 20:09 → 5RSO 23:19
PROVIDERS: ADMIT Internal Medicine; ATTEND Internal Medicine
DX: J18.9 Pneumonia, unspecified organism (principal); F11.24 Opioid dependence with opioid-induced mood disorder; R45.851 Suicidal ideations; L03.114 Cellulitis of left upper limb; B19.20 Unspecified viral hepatitis C without hepatic coma; F10.10 Alcohol abuse, uncomplicated; F19.259 Other psychoactive substance dependence with psychoactive substance-induced psychotic disorder, unspecified; D64.9 Anemia, unspecified; F17.210 Nicotine dependence, cigarettes, uncomplicated; F31.9 Bipolar disorder, unspecified; F60.2 Antisocial personality disorder; F60.3 Borderline personality disorder; Z59.0 Homelessness; Z80.41 Family history of malignant neoplasm of ovary; Z86.14 Personal history of Methicillin resistant Staphylococcus aureus infection; Z88.8 Allergy status to other drugs, medicaments and biological substances; R91.1 Solitary pulmonary nodule; R59.0 Localized enlarged lymph nodes

== ENCOUNTER 2017-06-09 15:06 | Inpatient (IN) | payer MEDICAID ==
--- NOTE | 2017-06-09 16:10 | PCM.BM ---
<Jaskaran Cassidy - Last Filed: 06/09/17 16:07> Treatment Plan Problems - Problems identified on initial assessmt HOPELSNESS/HELPLESNESS Date Initiated: 06/09/17 Time Initiated: 16:08 Assessment reference: HP, Other Status: Active MEDICATION NONADHERENCE Date Initiated: 06/09/17 Time Initiated: 16:09 Assessment reference: HP, Other Status: Active ALTERED SLEEP PATTERN Date Initiated: 06/09/17 Time Initiated: 16:09 Assessment reference: HP, Other Status: Active Treatment assets and liabiliti Patient Assests: adapts well, ADL independent, negotiates basic needs Patient Liabilities: live alone, physical pain, financial problems, poor support system, relationship conflicts, substance abuse, medical problems - Milieu Protocol Maintain good personal hygiene: daily Encourage regular showers, daily Remind patient to perform daily oral care, daily Assist patient to perform ADL's Maintain personal safety: daily Educate patient to report safety concerns to staff, daily Monitor environment for contraband/sharps Medication safety: Monitor for expected outcome, potential side effects: daily, Assess barriers to learning: daily, Assess readiness for medication education: daily Discharge/Continuing Care - Education Needs Education Needs: Patient Medication, Patient Diagnosis/Disease Process, Patient Coping Skills, Patient Anger Management skills, Patient Placement options, Patient Community resources, Patient Activities of Daily Living, Patient Health Practices/Safety, Patient Personal Hygiene/Grooming, Patient Aftercare Safety Plan (REHABBING), Patient Other (DRUG ABUSE OUTCOMES AND BODY HARM) - Discharge Discharge Criteria: Free of Suicidal thoughts, Free of agitation, Normal sleep pattern, Ability to care for self, No longer exhibiting s/s of withdrawal Discharge to:: Home, Substance Abuse Rehab <Velia Storm - Last Filed: 06/10/17 10:53> - Diagnosis (1) Alcohol use disorder, severe, dependence Status: Acute Interventions: Ativan 1 mg po q8 for possible alcohol withdrawal and anxiety, hold if sbp< 100 (2) Bipolar disorder Status: Acute Interventions: * Gabapentin 600 mg PO TID off label for anxiety and mood control * Seroquel XR 300 mg PO q5pm for mood control d/c Amitriptyline which can be more fatal in overdoses. Patient is unpredictable and has a history of suicide attempts. She continues to use a wide variety of substances which can further impair her judgment. This is not the safest standing medication for her depression, anxiety and insomnia. * Paxil 20 mg HS for depression and anxiety 06/10/17 10:54 (3) Drug dependence Status: Acute Interventions: Methadone held by this provider due to possible ingestion of illicit drugs on the unit yesterday, as well as her sedation and low vitals this morning. Requested nursing apprise Dr. Odnonell who ordered Methadone 170 mg this morning ( patient hasn't received a dose yet) * Naltrexone is not an option due to methadone treatment 06/10/17 10:53 06/10/17 10:55 <Arlene Cantrell - Last Filed: 06/11/17 12:13> Family Contact - Outside Agency [facility] Care involvment: Information-sharing Agency contact name: [facility] - Goals for Treatment Patient goals for treatment: "To feel happier." <Sandy Herndon - Last Filed: 06/14/17 16:23>
[2017-06-09] MEDS: QUEtiapine 300 mg XR Tab PO SCH (17:04)
--- NOTE | 2017-06-10 06:45 | CP.PCM.CON ---
<Jodie Odonnell - Last Filed: 06/10/17 10:40> History of Present Illness - History of Present Illness History of Present Illness: 36 year old female, with PMH polysubstance use, endocarditis, hep C, alcohol use , multiple suicide attempts, psych disorders, presents for depression for past few months was found to have lymphadenopathy, dry cough, subjective fevers for past few days. Patient was treated for pneumonia with Dr. Hernandez consulted. Methadone dose was confirmed with [facility] to be 170mg PO Daily. Patient was found to have left forearm and left hand edema with erythema of the fingers on the left. Patient was treated for left forearm and left hand cellulitis, and is resolving. Patient switched to PO medications. Patient was denying psychiatry interviews until 06/08. Patient signed the contract for admission to psych and tore up the contract. Psychiatrist requested [facility] involuntary psych admit and for screeners to come see the patient. Denies nasal/chest congestion, body aches, sore throat, headache, chest pain, sob, weight loss, hemoptysis, urinary symptoms, leg swelling. PMH: Endocarditis, hepatitis C, polysubstance abuse, alcohol abuse/withdrawal, skin abscesses, bipolar, multiple suicide attempts PSH: Bilateral rods placed in legs with ankle repair Family: Mother-Ovarian Cancer, Father-colorectal cancer Social: Currently smoking 2 packs per day with 40 year pack smoking history, currently drinks one liter of vodka daily, and currently uses IV heroine and cocaine; lives with her boyfriend in [place] Allergies: Haldol Home Medications: As per JUN 09 Patient agreed to be admitted to psychiatry. Dr. Storm admitted patient to psychiatry. Patient discharged to continue current antibiotics. We were consulted to continue medical management. Patient is continued on antibiotics. It was discussed with patient that she is to follow up with CT chest four weeks outpatient Sunday July 02, 2017 Past Patient History - Infectious Disease Hx of Infectious Diseases: None - Tetanus Immunizations Tetanus Immunization: Unknown - Past Medical History & Family History Past Medical History?: Yes - Past Social History Smoking Status: Current Some Days Smoker - CARDIAC Hx Cardiac Disorders: No - PULMONARY Hx Respiratory Disorders: No - NEUROLOGICAL Hx Neurological Disorder: No - HEENT Hx HEENT Problems: No - RENAL Hx Chronic Kidney Disease: No - ENDOCRINE/METABOLIC Hx Endocrine Disorders: No - HEMATOLOGICAL/ONCOLOGICAL Hx Hepatitis C: Yes - INTEGUMENTARY Other/Comment: Abscess on hands, and feet - MUSCULOSKELETAL/RHEUMATOLOGICAL Hx Musculoskeletal Disorders: No Hx Falls: No - GASTROINTESTINAL Hx Gastrointestinal Disorders: No - GENITOURINARY/GYNECOLOGICAL Hx Genitourinary Disorders: No - PSYCHIATRIC Hx Bipolar Disorder: Yes Hx Depression: Yes Hx Substance Use: Yes - SURGICAL HISTORY Hx Appendectomy: No Hx Cholecystectomy: No Hx Coronary Stent: No - ANESTHESIA Hx Anesthesia: No Hx Anesthesia Reactions: No Hx Malignant Hyperthermia: No Meds Allergies/Adverse Reactions: Allergies Allergy/AdvReac Type Severity Reaction Status Date / Time haloperidol lactate Allergy Intermediate SHORTNESS Verified 06/09/17 16:03 [From Haldol] OF BREATH haloperidol Allergy Unknown UNKNOWN Verified 06/09/17 16:03 - Medications Medications: Current Medications Acetaminophen (Tylenol 325mg Tab) 650 mg PO Q6 PRN PRN Reason: Pain, moderate (4-7) Amitriptyline HCl (Elavil) 25 mg PO HS [facility] Last Admin: 06/09/17 21:22 Dose: 25 mg Famotidine (Pepcid) 20 mg PO DAILY [facility] Folic Acid (Folic Acid) 1 mg PO DAILY [facility] Gabapentin (Neurontin) 600 mg PO TID [facility] PRN Reason: Protocol Lorazepam (Ativan) 1 mg PO Q8H [facility] PRN Reason: Protocol Last Admin: 06/10/17 04:53 Dose: 1 mg Multivitamins (Thera Tab) 1 tab PO 0800 [facility] Nicotine (Nicoderm Cq) 1 patch TD DAILY [facility] Paroxetine HCl (Paxil) 10 mg PO HS [facility] Last Admin: 06/09/17 21:19 Dose: 10 mg Quetiapine Fumarate (Seroquel Xr) 300 mg PO 1700 [facility] PRN Reason: Protocol Last Admin: 06/09/17 17:04 Dose: 300 mg Thiamine HCl (Vitamin B1 Tab) 100 mg PO DAILY [facility] Ziprasidone (Geodon Inj) 20 mg IM Q6H PRN; Protocol PRN Reason: Agitation Physical Exam - Constitutional Appears: Non-toxic, No Acute Distress - Head Exam Head Exam: ATRAUMATIC, NORMAL INSPECTION, NORMOCEPHALIC - Eye Exam Eye Exam: EOMI, Normal appearance - ENT Exam ENT Exam: Mucous Membranes Moist - Neck Exam Neck exam: Positive for: Full Rom. Negative for: Tenderness, Thyromegaly - Respiratory Exam Respiratory Exam: Clear to Auscultation Bilateral, NORMAL BREATHING PATTERN. absent: Accessory Muscle Use, Respiratory Distress - Cardiovascular Exam Cardiovascular Exam: REGULAR RHYTHM, +S1, +S2. absent: Bradycardia, Tachycardia - GI/Abdominal Exam GI & Abdominal Exam: Normal Bowel Sounds, Soft. absent: Firm, Guarding, Hernia - Extremities Exam Extremities exam: Positive for: full ROM. Negative for: normal inspection, pedal edema - Back Exam Back exam: FULL ROM, NORMAL INSPECTION - Neurological Exam Neurological exam: CN II-XII Intact, Normal Gait, Oriented x3 - Psychiatric Exam Psychiatric exam: Normal Affect, Normal Mood - Skin Skin Exam: Dry, Intact, Normal Color, Warm Results - Vital Signs Recent Vital Signs: Last Vital Signs Temp 97.6 F 06/09/17 19:12 Pulse 116 H 06/09/17 19:12 Resp 20 06/09/17 19:12 BP 105/73 06/09/17 19:12 Pulse Ox 98 06/09/17 19:12 Assessment & Plan - Assessment and Plan (Free Text) Assessment: 36 year old female with a past medical history significant for endocarditis, hepatitis C, polysubstance abuse, alcohol abuse/withdrawal, skin abscesses, bipolar, and antisocial personality disorder, presents for depression and suicidal ideations, found to have bilateral infiltrates on chest CT admitted to psychiatry. patient is aware that she needs to have a follow up CT Chest with IV contrast within 4 weeks of her initial [address] Chest on 06/04 (Sunday, July 02, 2017) Bilateral infiltrates: 2/2 CAP - Given Levaquin in ED. - Chest CT showed: 7 mm nodule at the right pulmonary apex. Within the right upper lobe, there is a small consolidation measuring 1.4 cm in diameter. Multiple groundglass density infiltrates are visualized within the lungs bilaterally. These infiltrates are suggestive of an infectious or inflammatory etiology, although malignancy cannot be excluded. Clinical correlation and a follow-up CT with IV contrast in one month is recommended. There is enlarged right axillary lymph node measuring 1.8 cm in length. A borderline enlarged left axillary lymph node is visualized. Multiple mediastinal lymph nodes are identified, a few which are borderline enlarged. Pulmonary Consult: follow up CT with contrast. Patient had a dry CT chest done while in ED. continue IV antibiotics for CAP, discharge on oral antibiotics or admit to psychiatry on oral antibiotics. Cefpodoxime and Azithromycin Pulmonary nodule: - Chest CT showed: 7 mm nodule at the right pulmonary apex. There is enlarged right axillary lymph node measuring 1.8 cm in length. A borderline enlarged left axillary lymph node is visualized. Multiple mediastinal lymph nodes are identified, a few which are borderline enlarged. - No previous chest CT found on records. - Obtain previous records - ask in AM once pt is sober - Will need follow up CT in 6-12 months. - Pulmonary Consult: follow up CT with IV contrast in 4-6 weeks. Patient had a dry CT chest done while in ED. continue IV antibiotics for CAP left arm edema, possible cellulitis, history of MRSA cellulitis of right arm left hand 3 view xray: no noted fractures bactrim for 7 days Anemia: Normocytic, 2/2 likely ACD vs mixed - Hgb 10.4 on admission, previous admissions range hgb 12-14 - obtain iron studies, vitamin B12, folate - daily cbc - Cont to monitor Alcohol abuse/withdrawal: - CIWA - Seizure/fall/aspiration precautions - Ativan prn Hx of cocaine/methadone use: - UDS pos opiates, methadone, cocaine - Advised cessation - [place] [id number] was called 06/05 and patient was confirmed to have a dose of 170mg Q daily with last administration 06/02 and patient was sent home with a bottle 06/03 06/05 80mg methadone was given in the hospital 06/06 110 mg methadone was given in the hospital, no signs of withdrawal 06/07 140 mg methadone, no signs of withdrawal 06/08 170mg Metadone daily Hx of bipolar/depression/psych: - C/w home psych meds - Psych Eval: patient is cleared to admit to psychiatry when patient is on oral medication and also when a bed is available. Hx of tobacco use: - advised cessation - nicotine patch PPX: Pepcid, Lovenox Diet: Regular further management by psychiatry discussed with Dr. Martha Odonnell DO PGY1 - Date & Time Date: 06/10/17 Time: 06:47 <Hien Thomas - Last Filed: 06/10/17 13:07> Meds - Medications Medications: Current Medications Acetaminophen (Tylenol 325mg Tab) 650 mg PO Q6 PRN PRN Reason: Pain, moderate (4-7) Azithromycin (Zithromax) 500 mg PO DAILY [facility] PRN Reason: Protocol Stop: 06/14/17 08:01 Last Admin: 06/10/17 09:00 Dose: 500 mg Bisacodyl (Dulcolax) 5 mg PO DAILY [facility] Last Admin: 06/10/17 11:28 Dose: 5 mg Cefpodoxime Proxetil (Vantin) 200 mg PO Q12 [facility] PRN Reason: Protocol Famotidine (Pepcid) 20 mg PO DAILY [facility] Last Admin: 06/10/17 09:00 Dose: 20 mg Folic Acid (Folic Acid) 1 mg PO DAILY [facility] Last Admin: 06/10/17 09:00 Dose: 1 mg Gabapentin (Neurontin) 600 mg PO TID [facility] PRN Reason: Protocol Last Admin: 06/10/17 12:08 Dose: 600 mg Lorazepam (Ativan) 1 mg PO Q8H [facility] PRN Reason: Protocol Last Admin: 06/10/17 12:08 Dose: 1 mg Methadone HCl (Methadone) 170 mg PO DAILY [facility] Last Admin: 06/10/17 11:28 Dose: 170 mg Multivitamins (Thera Tab) 1 tab PO 0800 [facility] Last Admin: 06/10/17 09:00 Dose: 1 tab Nicotine (Nicoderm Cq) 1 patch TD DAILY [facility] Last Admin: 06/10/17 09:00 Dose: 1 patch Paroxetine HCl (Paxil) 20 mg PO HS [facility] Polyethylene Glycol (Miralax) 17 gm PO BID [facility] Stop: 06/12/17 08:01 Quetiapine Fumarate (Seroquel Xr) 300 mg PO 1700 [facility] PRN Reason: Protocol Last Admin: 06/09/17 17:04 Dose: 300 mg Thiamine HCl (Vitamin B1 Tab) 100 mg PO DAILY [facility] Last Admin: 06/10/17 09:00 Dose: 100 mg Trimethoprim/Sulfamethoxazole (Bactrim Ss Tab) 1 tab PO Q6 [facility] PRN Reason: Protocol Stop: 06/12/17 12:01 Last Admin: 06/10/17 11:28 Dose: 1 tab Ziprasidone (Geodon Inj) 20 mg IM Q6H PRN; Protocol PRN Reason: Agitation Results - Vital Signs Recent Vital Signs: Last Vital Signs Temp 98.4 F 06/10/17 06:50 Pulse 82 06/10/17 06:50 Resp 20 06/10/17 06:50 BP 94/64 L 06/10/17 06:50 Pulse Ox 98 06/09/17 19:12 Attending/Attestation - Attestation I have personally seen and examined this patient.: Yes I have fully participated in the care of the patient.: Yes I have reviewed all pertinent clinical information: Yes Notes (Text): 06/10/17 13:00 36 year old female with past medical history of substance abuse and depression/ bipolar who is admitted to psychiatry unit for management of depression and suicidal ideations. Continue with management as per psychiatrist. She is currently on paxil and seroquel. Recent CT chest showed bilateral infiltrates, 7 mm pulmonary nodule and enlarged right axillary lymph node. She was seen by pulmonary who recommended to continue with antibiotics and steroids and to repeat CT chest with contrast in one month. She was counselled on risks of continued substance abuse. Counselled on smoking and alcohol cessation. She is on methadone for maintainence therapy. Her left hand/wrist swelling has improved. LUE doppler and xray hand were negative. Thank you Dr. Storm for allowing us to participate in the care of this patient. Patient needs outpatient follow up for repeat CT chest study as above. Please re-consult as needed. Hien Thomas MD Hospitalist.
[2017-06-10] MEDS: Multivitamin Therapeutic Tab PO SCH (09:00)
--- NOTE | 2017-06-10 10:22 | PCM.PSYCH ---
Initial Psychiatric Evaluation - Initial Psychiatric Evaluation Type of Admission: Voluntary History of Present Illness and Precipitating Events: Patient is a 36 year female with psychiatric diagnosis of Bipolar I Disorder, PTSD and long h/o polysubstance abuse and dependence- on methadone maintenance at [facility], h/o suicidal attempts and psychiatric inpatient hospitalizations, most recently [place] [facility] [place], who was transferred from the medical floor for further evaluation and stabilization of depressive symptoms, anxiety, confusion and suicidal ideation. Patient initially presented to our ER on 06/04/17 with complaints of depression and suicidal thoughts to cut her wrist. Patient was noted to be intoxicated and toxicology was positive for opiates, methadone and cocaine. Patient was treated for pneumonia and cellulitis on her left forearm & hand on the medical floor. She was also on a 1:1 during this time due to reported suicidal thoughts. Patient does have a history of cutting her wrist, requiring 7 stitches in November 2016. Patient was sedated and uncooperative with Olga Ashley APN visits on the medical floor 06/05/17 and 06/06/17. Her personal belongings were found in the ER on 06/06/17 and search of these belongings revealed various drug paraphernalia of used and unused syringes, tourniquet, crack pipes, empty crack vials, and crack in an old prescription bottle. It doesn't appear patient had access to this items during her hospitalization (as they were found in the ER) and items were disposed of in the sharps container. While on the medical floor, patient initially agreed to voluntary psychiatric admission but then changed her mind on 06/08/17. Apparently patient ripped up the admission paperwork. This provider visited with patient at bedside on 06/09/17 and she agreed to voluntary transfer to the psychiatric floor prior [facility] screening for involuntary commitment. On the psychiatric unit patient has been intrusive and demanding food. Staff noted that patient was illogical and making random comments such as "I want to feel happy. I'm very depressed and I want something to make me happy and "I wanted to be judged on the progress I make, not on the medications I take. This is similar to her presentation and behavior on the medical floor. Patient also requested Adderall XR that "I took a long time ago" and another medication " that starts with m". She was asked if she meant Methadone but patient stated no. Of note: Methadone dose was confirmed with [facility] to be 170mg PO Daily. While hospitalized, patient received 80 mg of methadone on 06/05/17, 110 mg on 06/06/17, 140 mg on 06/07/17 and 170 mg on 06/08/17. Patient didn't receive any doses on 06/09/17, the day she was transferred to the psychiatric unit. Fortunately, patients belongings were carefully searched on our unit and staff found 3 small balloon bags filled with white powder and a used needle within her make up items on 06/09/17. Needle and bags were discarded. I met with patient at bedside this morning and she was generally uncooperative with my questioning. She could not provide much more additional information. Patient kept repeating that she was tired and needed to sleep. Presently denies any discomfort or pain and doesn't appear to be in any distress. Denies any SI or AVH. PSYCHIATRIC HISTORY Most recent admission to [facility] occurred 11/28-. Patient was hospitalized s/p self-inflicted left wrist laceration requiring 7 sutures in the ED. Patient signed 48 hour notice during admission however later retracted it She was given diagnosis of Bipolar 1 disorder, Polysubstance dependence, PTSD ( post-traumatic stress disorder). Patient was discharged on : Amitriptyline 25 mg PO HS , Clonazepam 2 mg PO BID, Gabapentin 600 mg PO TID, Nicotine 21 mg/24 hr patch, Seroquel XR 300 mg PO HS SOCIAL HISTORY Patient is single and has a one child. Refuses to elaborate any further on her family history. Medical floor records indicates she told social work that she is homeless and resides in [facility] in the [place]. Patient has a long history of opiate dependency. Medical team confirmed with [facility] Methadone clinic that she receives 170 mg daily. This morning patient reported that was has been receiving methadone maintenance x5 months. UDS was positive for heroin, cocaine and methadone. Patient also reported to Olga Ashley APN that she drinks vodka daily though this could not be confirmed by this provider. Patient has a history of tobacco use. This provider could not discuss current use because patient refused to engage in an interview today. Current Medications: Active Medications Generic Name Dose Route Start Last Admin Trade Name Freq PRN Reason Stop Dose Admin Acetaminophen 650 mg 06/09/17 15:33 Tylenol 325mg Tab PO Q6 PRN Pain, moderate (4-7) Amitriptyline HCl 25 mg 06/09/17 22:00 06/09/17 21:22 Elavil PO 25 mg HS MICHAEL Administration Famotidine 20 mg 06/10/17 08:00 Pepcid PO DAILY MICHAEL Folic Acid 1 mg 06/10/17 08:00 Folic Acid PO DAILY MICHAEL Gabapentin 600 mg 06/10/17 08:00 Neurontin PO TID MICHAEL Protocol Lorazepam 1 mg 06/09/17 20:00 06/09/17 21:19 Ativan PO 1 mg Q8H MICHAEL Administration Protocol Multivitamins 1 tab 06/10/17 08:00 Thera Tab PO 0800 MICHAEL Nicotine 1 patch 06/10/17 08:00 Nicoderm Cq TD DAILY MICHAEL Paroxetine HCl 10 mg 06/09/17 22:00 06/09/17 21:19 Paxil PO 10 mg HS MICHAEL Administration Quetiapine Fumarate 300 mg 06/09/17 17:00 06/09/17 17:04 Seroquel Xr PO 300 mg 1700 MICHAEL Administration Protocol Thiamine HCl 100 mg 06/10/17 08:00 Vitamin B1 Tab PO DAILY MICHAEL Ziprasidone 20 mg 06/09/17 15:42 Geodon Inj IM Q6H PRN Agitation Protocol Past Psychiatric History - Past Psychiatric History Pertinent Medical Hx (Current Medical&Sleep Prob, Allergies): Allergies Allergy/AdvReac Type Severity Reaction Status Date / Time haloperidol lactate Allergy Intermediate SHORTNESS Verified 06/09/17 16:03 [From Haldol] OF BREATH haloperidol Allergy Unknown UNKNOWN Verified 06/09/17 16:03 Amitriptyline [Elavil] 25 mg PO HS #14 tab 12/04/16 Clonazepam [Klonopin] 2 mg PO BID #30 tablet 12/04/16 Folic Acid 1 mg PO DAILY #14 tab 12/04/16 Gabapentin [Neurontin] 600 mg PO TID #60 tab 12/04/16 Multivitamin Therapeutic Tab [Thera Tab] 1 tab PO 0800 #14 tab 12/04/16 QUEtiapine [SEROquel XR] 300 mg PO HS #14 ter 12/04/16 Thiamine [Vitamin B1 Tab] 100 mg PO DAILY #14 tab 12/04/16 buPROPion [Wellbutrin] 1 tab PO DAILY 12/19/16 Mental Status Examination - Personal Presentation Personal Presentation: Looks stated age - Affect Affect: Constricted, Other (labile) - Motor Activity Motor Activity: Psychomotor Agitation - Reliability in Providing Information Reliability in Providing Information: Poor, due to alteration in thoughts - Speech Speech: Irrelevant - Mood Mood: Depressed, Anxious - Formal Thought Process Formal Thought Process: Paranoia, Loosening of associations - Obsessions/Compulsions Obsessions: No Compulsions: No - Cognitive Functions Orientation: Person Sensorium: Drowsy Attention/Concentration: Easily distracted Estimate of Intelligence: Average Judgement: Imparied, as evidence by: Poor judgement, Imparied, as evidence by: Lack of insight into illness - Risk Risk: Suicidal, Diminished functioning DSM 5 DX - DSM 5 DSM 5 Diagnosis: Bipolar I disorder by history Polysubstance dependence on methadone maintenance PTSD (post-traumatic stress disorder). - Recommended/Plan of Treatment Treatment Recommendations and Plan of Treatment: * group, milieu and supportive tx * d/c Amitriptyline which can be more fatal in overdoses. Patient is unpredictable and has a history of suicide attempts. She continues to use a wide variety of substances which can further impair her judgment. This is not the safest standing medication for her depression, anxiety and insomnia. * Paxil 20 mg HS for depression and anxiety * Ativan 1 mg po q8 for possible alcohol withdrawal and anxiety, hold if sbp< 100 * Gabapentin 600 mg PO TID off label for anxiety and mood control * Seroquel XR 300 mg PO q5pm for mood control * Nicotine 21 mg/24 hr patch for nicotine addiction * Methadone held by this provider due to possible ingestion of illicit drugs on the unit yesterday, as well as her sedation and low vitals this morning. Requested nursing apprise Dr. Odonnell who ordered Methadone 170 mg this morning ( patient hasn't received a dose yet) * Appreciate f/u by Dr. Odonnell~to c/w antibiotics * Vitals reviewed and noted below: 06/09/17 06/10/17 19:12 06:50 Temperature 97.6 F 98.4 F Pulse Rate 116 H 82 Respiratory 20 20 Rate Blood Pressure 105/73 94/64 L O2 Sat by Pulse 98 Oximetry - Chest CT showed: 7 mm nodule at the right pulmonary apex. Within the right upper lobe, there is a small consolidation measuring 1.4 cm in diameter. Multiple groundglass density infiltrates are visualized within the lungs bilaterally. These infiltrates are suggestive of an infectious or inflammatory etiology, although malignancy cannot be excluded. Clinical correlation and a follow-up CT with IV contrast in one month is recommended. There is enlarged right axillary lymph node measuring 1.8 cm in length. A borderline enlarged left axillary lymph node is visualized. Multiple mediastinal lymph nodes are identified, a few which are borderline enlarged.
[2017-06-10] MEDS: Tmp-Smz 400 mg-80 mg SS Tab PO SCH ×2 (11:28→17:26)
[2017-06-10] MEDS: Bisacodyl 5mg EC Tab PO SCH (11:28)
[2017-06-10] MEDS ORDERED: Vitamin A/D oint 60G TP PRN (13:55)
[2017-06-10] MEDS: Vitamins A & D Oint UD Foilpak TOP PRN (14:12)
[2017-06-10] MEDS: POLYETHYLENE GLYCOL 3350 17 GM/Dose PACKET PO SCH (17:26)
[2017-06-10] MEDS: Cefpodoxime (Vantin) 200 mg Tab PO SCH (17:26)
[2017-06-10] MEDS: QUEtiapine 300 mg XR Tab PO SCH (17:26)
[2017-06-10] MEDS ORDERED: Cefpodoxime (Vantin) 200 mg Tab PO SCH (18:00)
[2017-06-11] MEDS: Tmp-Smz 400 mg-80 mg SS Tab PO SCH ×6 (00:10→23:32)
[2017-06-11] MEDS: Bisacodyl 5mg EC Tab PO SCH (07:59)
[2017-06-11] MEDS: Cefpodoxime (Vantin) 200 mg Tab PO SCH ×2 (08:00→17:24)
[2017-06-11] MEDS: Multivitamin Therapeutic Tab PO SCH (08:00)
[2017-06-11 08:14] LABS: HDL CHOLESTEROL 69 mg/dL (29-60)
[2017-06-11 08:25] LABS: LDL CHOLESTEROL 77 mg/dL (0-129)
[2017-06-11 08:32] LABS: FREE T4 0.87 ng/dL (0.78-2.19)
[2017-06-11] MEDS: POLYETHYLENE GLYCOL 3350 17 GM/Dose PACKET PO SCH ×2 (09:03→17:24)
[2017-06-11] MEDS: Vitamins A & D Oint UD Foilpak TOP PRN (11:19)
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
[2017-06-11] MEDS: QUEtiapine 300 mg XR Tab PO SCH (17:24)
[2017-06-11 22:40] VITALS: O2SAT 97
[2017-06-12] MEDS: POLYETHYLENE GLYCOL 3350 17 GM/Dose PACKET PO SCH (08:19)
[2017-06-12] MEDS: Vitamins A & D Oint UD Foilpak TOP PRN (08:19)
[2017-06-12] MEDS: Cefpodoxime (Vantin) 200 mg Tab PO SCH ×2 (08:20→16:59)
[2017-06-12] MEDS: Tmp-Smz 400 mg-80 mg SS Tab PO SCH ×2 (08:20→13:07)
[2017-06-12] MEDS: Multivitamin Therapeutic Tab PO SCH (08:21)
[2017-06-12] MEDS: Bisacodyl 5mg EC Tab PO SCH (08:21)
--- NOTE | 2017-06-12 15:41 | PCM.PYCHPN ---
Psychiatric Progress Note - Psychiatric Progress Note Patient seen today, length of contact: 30min Patient Chief Complaint: "I do not like myself, I have no friends, my daughter does not even know me, I am failure, total failure..." Problems Identified/Issues Discussed: Suicide/ homicide prevention, past psychiatric h/o, current psychiatric symptoms , medical problems, risk/benefits and alternatives of medications, medications compliance, coping strategies, substance abuse h/o, relapse prevention, importance of follow up with psychiatrist and therapist, discharge plan. Medical Problems: as per medical team: 05/11 CAP - Given Levaquin in ED. Pulmonary nodule: - Chest CT showed: 7 mm nodule at the right pulmonary apex. There is enlarged right axillary lymph node measuring 1.8 cm in length. A borderline enlarged left axillary lymph node is visualized. Multiple mediastinal lymph nodes are identified, a few which are borderline enlarged. - No previous chest CT found on records. - Obtain previous records - ask in AM once pt is sober - Will need follow up CT in 6-12 months. - Pulmonary Consult: follow up CT with IV contrast in 4-6 weeks. Patient had a dry CT chest done while in ED. continue IV antibiotics for CAP left arm edema, possible cellulitis, history of MRSA cellulitis of right arm left hand 3 view xray: no noted fractures bactrim for 7 days Anemia: Normocytic, 2/2 likely ACD vs mixed - Hgb 10.4 on admission, previous admissions range hgb 12-14 - obtain iron studies, vitamin B12, folate - daily cbc - Cont to monitor Alcohol abuse/withdrawal: Ativan prn tapering dose Hx of cocaine/methadone use: - UDS pos opiates, methadone, cocaine - Advised cessation - [place] [id number] was called 06/05 and patient was confirmed to have a dose of 170mg Q daily with last administration 06/02 and patient was sent home with a bottle 06/03 06/05 80mg methadone was given in the hospital 06/06 110 mg methadone was given in the hospital, no signs of withdrawal 06/07 140 mg methadone, no signs of withdrawal 06/08 170mg Metadone daily Hx of bipolar/depression/psych: - C/w home psych meds - Psych Eval: patient is cleared to admit to psychiatry when patient is on oral medication and also when a bed is available. Hx of tobacco use: - advised cessation - nicotine patch Diagnostic Results: Lab Results 06/11/17 07:00: Free T4 0.87, TSH 3rd Generation 3.48 06/11/17 07:00: Hemoglobin A1c 5.1 06/11/17 07:00: Triglycerides 137, Cholesterol 173, LDL Cholesterol Direct 77, HDL Cholesterol 69 H Vital Signs Temp Pulse Resp BP Pulse Ox 06/11/17 06:54 97.9 F 92 H 20 101/67 06/10/17 16:00 109 H 129/76 06/10/17 06:50 98.4 F 82 20 94/64 L 06/09/17 19:12 97.6 F 116 H 20 105/73 98 Lab Results 06/11/17 07:00: RPR Nonreactive 06/11/17 07:00: Free T4 0.87, TSH 3rd Generation 3.48 06/11/17 07:00: Hemoglobin A1c 5.1 06/11/17 07:00: Triglycerides 137, Cholesterol 173, LDL Cholesterol Direct 77, HDL Cholesterol 69 H Vital Signs Temp Pulse Resp BP Pulse Ox 06/12/17 11:17 98.3 F 90 18 112/62 06/11/17 16:00 87 123/87 97 06/11/17 06:54 97.9 F 92 H 20 101/67 06/10/17 16:00 109 H 129/76 06/10/17 06:50 98.4 F 82 20 94/64 L 06/09/17 19:12 97.6 F 116 H 20 105/73 98 DSM 5 Symptoms Update: Patient is a 36 year female with psychiatric diagnosis of Bipolar I Disorder, PTSD and long h/o polysubstance abuse and dependence- on methadone maintenance at [facility], h/o suicidal attempts and psychiatric inpatient hospitalizations, most recently at [facility] psych inpatient 11/2016, who was transferred from the medical floor for further evaluation and stabilization of depressive symptoms, anxiety, confusion and suicidal ideation. pt was seen at the treatment team meeting, pt said that she is severely depressed, hopeless, was crying hysterically, was saying that she is tired and exhausted. pt requested elavil to be resumed, pt also presented to be disorganized, was jumping from one subject to another. pt said that she was doing okay and did not inject any substances for a while then relapsed, pt willing to go to inpatient rehab, SW will give referrals to inpatient rehabs. as per staff pt is intrusive, labile, disorganized, needy. so far pt did not required any IMs, was able to control herself, but limit setting is required. Impression: DSM 5 Diagnosis: Bipolar I disorder by history Polysubstance dependence on methadone maintenance PTSD (post-traumatic stress disorder). Medication Change: Yes (paxil d/c, seroquel increased, elavil started) Medical Record Reviewed: Yes Consults ordered or reviewed: medical consult appreciated, see above Mental Status Examination - Cognitive Function Orientation: Person Memory: Intact, Impaired Attention: Poor Concentration: Poor Association: Loose Fund of Knowledge: Poor - Mood Mood: Depressed ("I am a total failure"), Anxious - Affect Affect: Constricted, Other (labile) - Speech Speech: Appropriate - Formal Thought Process Formal Thought Process: Paranoia, Loosening of associations - Suicidal Ideation Suicidal Ideation: No - Homicidal Ideation Homicidal Ideation: No Goal/Treatment Plan - Goal/Treatment Plan Need for Continued Stay: Remain at risks for inpatient hospitalization, Severe depression anxiety, Discharge may exacerbated symptoms, Severe functional impairment Progress Toward Problem(s) and Goals/Treatment Plan: group, milieu and supportive therapy Amitriptyline was resumed as per pt's request, 25mg po hs for depression and anxiety Paxil d/c Ativan 1 mg po q8 for possible alcohol withdrawal and anxiety, hold if sbp<100 Gabapentin 600 mg PO TID off label for anxiety and mood control Seroquel XR 300 amhs for disorganized thoughts and behavior. Nicotine 21 mg/24 hr patch for nicotine addiction Methadone held by this provider due to possible ingestion of illicit drugs on the unit yesterday, as well as her sedation and low vitals this morning. Requested nursing apprise Dr. Odonnell who ordered Methadone 170 mg this morning ( patient hasn't received a dose yet) Appreciate f/u by Dr. Odonnell~to c/w antibiotics pt does want to go to the inpatient rehab now Follow up on labs Will monitor closely Pt was educated about risk/benefits and alternatives of medications, coping strategies (safety plan, suicide prevention), relapse prevention, importance of follow up with psychiatrist and therapist, stay away from drugs/alcohol/smoking pt said that he was filling meds in [facility] pharmacy, but as per pharmacist, last time pt filled meds was December 2016 Estimated Date of D/C: 06/15/17 (will monitor closely)
[2017-06-12] MEDS: QUEtiapine 300 mg XR Tab PO SCH (21:15)
[2017-06-13] MEDS: Cefpodoxime (Vantin) 200 mg Tab PO SCH ×2 (05:05→17:40)
[2017-06-13] MEDS: Bisacodyl 5mg EC Tab PO SCH (07:55)
[2017-06-13] MEDS: Multivitamin Therapeutic Tab PO SCH (07:56)
[2017-06-13] MEDS: QUEtiapine 300 mg XR Tab PO SCH ×2 (09:01→21:11)
--- NOTE | 2017-06-13 10:12 | PCM.PYCHPN ---
Psychiatric Progress Note - Psychiatric Progress Note Patient seen today, length of contact: 30min Patient Chief Complaint: "I feel overly emotional, I am all over the place". Problems Identified/Issues Discussed: Suicide/ homicide prevention, past psychiatric h/o, current psychiatric symptoms , medical problems, risk/benefits and alternatives of medications, medications compliance, coping strategies, substance abuse h/o, relapse prevention, importance of follow up with psychiatrist and therapist, discharge plan. Medical Problems: as per medical team: 05/11 CAP - Given Levaquin in ED. Pulmonary nodule: - Chest CT showed: 7 mm nodule at the right pulmonary apex. There is enlarged right axillary lymph node measuring 1.8 cm in length. A borderline enlarged left axillary lymph node is visualized. Multiple mediastinal lymph nodes are identified, a few which are borderline enlarged. - No previous chest CT found on records. - Obtain previous records - ask in AM once pt is sober - Will need follow up CT in 6-12 months. - Pulmonary Consult: follow up CT with IV contrast in 4-6 weeks. Patient had a dry CT chest done while in ED. continue IV antibiotics for CAP left arm edema, possible cellulitis, history of MRSA cellulitis of right arm left hand 3 view xray: no noted fractures bactrim for 7 days Anemia: Normocytic, 2/2 likely ACD vs mixed - Hgb 10.4 on admission, previous admissions range hgb 12-14 - obtain iron studies, vitamin B12, folate - daily cbc - Cont to monitor Alcohol abuse/withdrawal: Ativan prn tapering dose Hx of cocaine/methadone use: - UDS pos opiates, methadone, cocaine - Advised cessation - [place] [id number] was called 06/05 and patient was confirmed to have a dose of 170mg Q daily with last administration 06/02 and patient was sent home with a bottle 06/03 06/05 80mg methadone was given in the hospital 06/06 110 mg methadone was given in the hospital, no signs of withdrawal 06/07 140 mg methadone, no signs of withdrawal 06/08 170mg Metadone daily Hx of bipolar/depression/psych: - C/w home psych meds - Psych Eval: patient is cleared to admit to psychiatry when patient is on oral medication and also when a bed is available. Hx of tobacco use: - advised cessation - nicotine patch Diagnostic Results: Lab Results 03/05/18 07:00: Free T4 0.87, TSH 3rd Generation 3.48 06/11/17 07:00: Hemoglobin A1c 5.1 06/11/17 07:00: Triglycerides 137, Cholesterol 173, LDL Cholesterol Direct 77, HDL Cholesterol 69 H Vital Signs Temp Pulse Resp BP Pulse Ox 06/11/17 06:54 97.9 F 92 H 20 101/67 06/10/17 16:00 109 H 129/76 06/10/17 06:50 98.4 F 82 20 94/64 L 06/09/17 19:12 97.6 F 116 H 20 105/73 98 Lab Results 06/11/17 07:00: RPR Nonreactive 06/11/17 07:00: Free T4 0.87, TSH 3rd Generation 3.48 06/11/17 07:00: Hemoglobin A1c 5.1 06/11/17 07:00: Triglycerides 137, Cholesterol 173, LDL Cholesterol Direct 77, HDL Cholesterol 69 H Vital Signs Temp Pulse Resp BP Pulse Ox 06/12/17 11:17 98.3 F 90 18 112/62 06/11/17 16:00 87 123/87 97 06/11/17 06:54 97.9 F 92 H 20 101/67 06/10/17 16:00 109 H 129/76 06/10/17 06:50 98.4 F 82 20 94/64 L 06/09/17 19:12 97.6 F 116 H 20 105/73 98 DSM 5 Symptoms Update: Patient is a 36 year female with psychiatric diagnosis of Bipolar I Disorder, PTSD and long h/o polysubstance abuse and dependence- on methadone maintenance at [facility], h/o suicidal attempts and psychiatric inpatient hospitalizations, most recently at [facility] psych inpatient 11/2016, who was transferred from the medical floor for further evaluation and stabilization of depressive symptoms, anxiety, confusion and suicidal ideation. pt was seen in her room, pt presented to be disorganized, difficulties to concentrate, pt was jumping from one subject to another. pt keeps asking the same question all over and over again. Pt demanded to be in stimulant, "I cannot understand, why you cannot give me a chance, give me adderral, call to my pharmacy, they will confirm that I was on this medication. of note this contract writer called three pharmacies [facility], [facility], no record found for the first two ones, but [facility] pharmacy last time pt filled meds was in December. this contract writer let pt know that stimulant is not indicated for her now. pt said that "I feel overly emotional, I am all over the place". as per staff pt is intrusive, labile, disorganized, needy. so far pt did not required any IMs, was able to control herself, but limit setting is required. Impression: DSM 5 Diagnosis: Bipolar I disorder by history Polysubstance dependence on methadone maintenance PTSD (post-traumatic stress disorder). Medication Change: No (paxil d/c, seroquel increased, elavil started 06/12/17) Medical Record Reviewed: Yes Consults ordered or reviewed: medical consult appreciated, see above Mental Status Examination - Cognitive Function Orientation: Person Memory: Intact, Impaired Attention: Poor Concentration: Poor Association: Loose Fund of Knowledge: Poor - Mood Mood: Depressed ("I overly emotional"), Anxious - Affect Affect: Constricted, Other (labile) - Speech Speech: Appropriate - Formal Thought Process Formal Thought Process: Paranoia, Loosening of associations - Suicidal Ideation Suicidal Ideation: No - Homicidal Ideation Homicidal Ideation: No Goal/Treatment Plan - Goal/Treatment Plan Need for Continued Stay: Remain at risks for inpatient hospitalization, Severe depression anxiety, Discharge may exacerbated symptoms, Severe functional impairment Progress Toward Problem(s) and Goals/Treatment Plan: group, milieu and supportive therapy Amitriptyline was resumed as per pt's request, 25mg po hs for depression and anxiety Paxil d/c Ativan 1 mg po q8 for possible alcohol withdrawal and anxiety, hold if sbp<100 Gabapentin 600 mg PO TID off label for anxiety and mood control Seroquel XR 300 amhs for disorganized thoughts and behavior. Nicotine 21 mg/24 hr patch for nicotine addiction Methadone held by this provider due to possible ingestion of illicit drugs on the unit yesterday, as well as her sedation and low vitals this morning. Requested nursing apprise Dr. Odonnell who ordered Methadone 170 mg this morning ( patient hasn't received a dose yet) Appreciate f/u by Dr. Odonnell~to c/w antibiotics pt does want to go to the inpatient rehab now Follow up on labs Will monitor closely Pt was educated about risk/benefits and alternatives of medications, coping strategies (safety plan, suicide prevention), relapse prevention, importance of follow up with psychiatrist and therapist, stay away from drugs/alcohol/smoking pt said that he was filling meds in [facility] pharmacy, but as per pharmacist, last time pt filled meds was December 2016 Estimated Date of D/C: 06/15/17 (will monitor closely)
[2017-06-13] MEDS ORDERED: POLYETHYLENE GLYCOL 3350 17 GM/Dose PACKET PO ONE (20:08)
[2017-06-14] MEDS: Cefpodoxime (Vantin) 200 mg Tab PO SCH ×2 (05:00→17:27)
[2017-06-14] MEDS: Bisacodyl 5mg EC Tab PO SCH (08:27)
[2017-06-14] MEDS: Multivitamin Therapeutic Tab PO SCH (08:27)
[2017-06-14] MEDS: QUEtiapine 300 mg XR Tab PO SCH (09:16)
--- NOTE | 2017-06-14 15:24 | PCM.PYCHPN ---
Psychiatric Progress Note - Psychiatric Progress Note Patient seen today, length of contact: 30min Patient Chief Complaint: "I feel little better" Problems Identified/Issues Discussed: Suicide/ homicide prevention, past psychiatric h/o, current psychiatric symptoms , medical problems, risk/benefits and alternatives of medications, medications compliance, coping strategies, substance abuse h/o, relapse prevention, importance of follow up with psychiatrist and therapist, discharge plan. Medical Problems: as per medical team: 05/11 CAP - Given Levaquin in ED. Pulmonary nodule: - Chest CT showed: 7 mm nodule at the right pulmonary apex. There is enlarged right axillary lymph node measuring 1.8 cm in length. A borderline enlarged left axillary lymph node is visualized. Multiple mediastinal lymph nodes are identified, a few which are borderline enlarged. - No previous chest CT found on records. - Obtain previous records - ask in AM once pt is sober - Will need follow up CT in 6-12 months. - Pulmonary Consult: follow up CT with IV contrast in 4-6 weeks. Patient had a dry CT chest done while in ED. continue IV antibiotics for CAP left arm edema, possible cellulitis, history of MRSA cellulitis of right arm left hand 3 view xray: no noted fractures bactrim for 7 days Anemia: Normocytic, 2/2 likely ACD vs mixed - Hgb 10.4 on admission, previous admissions range hgb 12-14 - obtain iron studies, vitamin B12, folate - daily cbc - Cont to monitor Alcohol abuse/withdrawal: Ativan prn tapering dose Hx of cocaine/methadone use: - UDS pos opiates, methadone, cocaine - Advised cessation - [place] [id number] was called 06/05 and patient was confirmed to have a dose of 170mg Q daily with last administration 06/02 and patient was sent home with a bottle 06/03 06/05 80mg methadone was given in the hospital 06/06 110 mg methadone was given in the hospital, no signs of withdrawal 06/07 140 mg methadone, no signs of withdrawal 06/08 170mg Metadone daily Hx of bipolar/depression/psych: - C/w home psych meds - Psych Eval: patient is cleared to admit to psychiatry when patient is on oral medication and also when a bed is available. Hx of tobacco use: - advised cessation - nicotine patch Diagnostic Results: Lab Results 06/11/17 07:00: Free T4 0.87, TSH 3rd Generation 3.48 06/11/17 07:00: Hemoglobin A1c 5.1 06/11/17 07:00: Triglycerides 137, Cholesterol 173, LDL Cholesterol Direct 77, HDL Cholesterol 69 H Vital Signs Temp Pulse Resp BP Pulse Ox 06/11/17 06:54 97.9 F 92 H 20 101/67 06/10/17 16:00 109 H 129/76 06/10/17 06:50 98.4 F 82 20 94/64 L 06/09/17 19:12 97.6 F 116 H 20 105/73 98 Lab Results 06/11/17 07:00: RPR Nonreactive 06/11/17 07:00: Free T4 0.87, TSH 3rd Generation 3.48 06/11/17 07:00: Hemoglobin A1c 5.1 06/11/17 07:00: Triglycerides 137, Cholesterol 173, LDL Cholesterol Direct 77, HDL Cholesterol 69 H Vital Signs Temp Pulse Resp BP Pulse Ox 06/12/17 11:17 98.3 F 90 18 112/62 06/11/17 16:00 87 123/87 97 06/11/17 06:54 97.9 F 92 H 20 101/67 06/10/17 16:00 109 H 129/76 06/10/17 06:50 98.4 F 82 20 94/64 L 06/09/17 19:12 97.6 F 116 H 20 105/73 98 DSM 5 Symptoms Update: Patient is a 36 year female with psychiatric diagnosis of Bipolar I Disorder, PTSD and long h/o polysubstance abuse and dependence- on methadone maintenance at [facility], h/o suicidal attempts and psychiatric inpatient hospitalizations, most recently at [facility] psych inpatient 11/2016, who was transferred from the medical floor for further evaluation and stabilization of depressive symptoms, anxiety, confusion and suicidal ideation. pt was seen at the treatment team meeting, presented to be better organized but still difficulties to concentrate, pt was jumping from one subject to another. pt keeps asking the same question all over and over again. patient appears to be high on methadone 170 mg daily, we'll decrease to 160 daily. patient preferred to be on Elavil, reported that she take this medication for years, risk, benefits, alternatives discussed with the patient. pt said that "I feel overly emotional, I am all over the place". as per staff pt is intrusive, labile, disorganized, needy. so far pt did not required any IMs, was able to control herself, but limit setting is required. Impression: DSM 5 Diagnosis: Bipolar I disorder by history Polysubstance dependence on methadone maintenance PTSD (post-traumatic stress disorder). Medication Change: Yes (Seroquel maximized,ethadone decreased) Medical Record Reviewed: Yes Mental Status Examination - Cognitive Function Orientation: Person Memory: Intact, Impaired Attention: Poor Concentration: Poor Association: Loose Fund of Knowledge: Poor - Mood Mood: Depressed ("I overly emotional"), Anxious - Affect Affect: Constricted, Other (labile) - Speech Speech: Appropriate - Formal Thought Process Formal Thought Process: Paranoia, Loosening of associations - Suicidal Ideation Suicidal Ideation: No - Homicidal Ideation Homicidal Ideation: No Goal/Treatment Plan - Goal/Treatment Plan Need for Continued Stay: Remain at risks for inpatient hospitalization, Severe depression anxiety, Discharge may exacerbated symptoms, Severe functional impairment Progress Toward Problem(s) and Goals/Treatment Plan: group, milieu and supportive therapy Amitriptyline was resumed as per pt's request, 25mg po hs for depression and anxiety Paxil d/c Ativan 1 mg po q8 for possible alcohol withdrawal and anxiety, hold if sbp<100 Gabapentin 600 mg PO TID off label for anxiety and mood control Seroquel XR 00 amhs for disorganized thoughts and behavior. Nicotine 21 mg/24 hr patch for nicotine addiction Methadone will be decreased to 160 mg daily, patient was on 170mg daily but appears to be high Appreciate f/u by medical team pt does want to go to the inpatient rehab now Follow up on labs Will monitor closely Pt was educated about risk/benefits and alternatives of medications, coping strategies (safety plan, suicide prevention), relapse prevention, importance of follow up with psychiatrist and therapist, stay away from drugs/alcohol/smoking Estimated Date of D/C: 06/18/17 (will monitor closely)
[2017-06-14] MEDS: QUEtiapine 200 mg XR Tab PO SCH (21:03)
[2017-06-15] MEDS: Cefpodoxime (Vantin) 200 mg Tab PO SCH ×2 (05:00→17:51)
[2017-06-15] MEDS: Multivitamin Therapeutic Tab PO SCH (07:51)
[2017-06-15] MEDS: Bisacodyl 5mg EC Tab PO SCH (07:51)
[2017-06-15] MEDS: QUEtiapine 200 mg XR Tab PO SCH ×2 (09:12→21:03)
--- NOTE | 2017-06-15 09:34 | PCM.PYCHPN ---
Psychiatric Progress Note - Psychiatric Progress Note Patient seen today, length of contact: 25 min Patient Chief Complaint: She still complains of depression, anxiety and feeling disoriented. Problems Identified/Issues Discussed: I reviewed assessment and recent notes. Patient is well known to me from multiple prior admissions and my recent assessment last weekend when patient was transferred from the medical floor. Pt has been a little difficult on the unit but organization seems to be improving according to Dr. Sotelo's note from yesterday. I saw her in the dayroom and focus does appear a little better. Overall she looks less distressed and less frenetic. She still complains of depression, anxiety and feeling disoriented. Patient was able to provide the correct month, year and location. Thought process remains scattered but less rambling. Appears a little restless and preoccupied however she wasn't observed to be responding to internal stimuli. Patient is groomed but her choice in make up application is odd, she is seen wearing dark pink eye shadow and purple lipstick at 7 am this morning. Multiple staff notes indicate she has been needy, manipulative and intrusive. Patient constantly visits the nursing station with requests for food or medication and requires a lot of limit setting and redirection. Yesterday methadone was decreased from 170 mg daily to 160 mg daily because patient appeared lethargic and confused. Today patient admits she has been sleeping better with Seroquel. Denies any new side effects, discomfort or pain. There were no major behavior issues overnight. Diagnostic Results: Bipolar I disorder by history Polysubstance dependence on methadone maintenance PTSD (post-traumatic stress disorder). Medication Change: Yes (Seroquel maximized, methadone decreased) Medical Record Reviewed: Yes Mental Status Examination - Cognitive Function Orientation: Person Memory: Intact, Impaired Attention: Poor Concentration: Poor Association: Loose Fund of Knowledge: Poor - Mood Mood: Depressed ("I overly emotional"), Anxious - Affect Affect: Constricted, Other (labile) - Speech Speech: Appropriate - Formal Thought Process Formal Thought Process: Paranoia, Loosening of associations (Thought process remains scattered but less rambling. Appears a little restless and preoccupied however she wasn't observed to be responding to internal stimuli.) - Suicidal Ideation Suicidal Ideation: No - Homicidal Ideation Homicidal Ideation: No Goal/Treatment Plan - Goal/Treatment Plan Need for Continued Stay: Remain at risks for inpatient hospitalization, Severe depression anxiety, Discharge may exacerbated symptoms, Severe functional impairment Progress Toward Problem(s) and Goals/Treatment Plan: * group, milieu and supportive tx * Amitriptyline 25 mg HS was restarted by Dr. Sotelo for depression. * Ativan 1 mg po q8 for anxiety, hold if sbp<100 * Gabapentin 600 mg PO TID off label for anxiety and mood control * Seroquel XR 400 mg AM and HS for mood control * Nicotine 21 mg/24 hr patch for nicotine addiction * Methadone recently decreased to 160 mg po daily due to patient appearing sedated and disoriented on the unit. * No new labs thus far * Vitals reviewed and noted below: 06/15/17 06:57 Temperature 97.3 F L Pulse Rate 90 Respiratory 20 Rate Blood Pressure 102/66 * PATIENT IS NOW INTERESTED IN INPATIENT REHAB Estimated Date of D/C: 06/18/17 (will monitor closely)
[2017-06-16] MEDS: Cefpodoxime (Vantin) 200 mg Tab PO SCH ×2 (05:03→18:03)
[2017-06-16] MEDS: Bisacodyl 5mg EC Tab PO SCH (08:54)
[2017-06-16] MEDS: Multivitamin Therapeutic Tab PO SCH (08:54)
--- NOTE | 2017-06-16 09:06 | PCM.PYCHPN ---
Psychiatric Progress Note - Psychiatric Progress Note Patient seen today, length of contact: 25 min Patient Chief Complaint: She still complains of depression, anxiety and feeling disoriented. Problems Identified/Issues Discussed: I reviewed recent notes. Patient is well known to me from multiple prior admissions and my admission assessment when patient was transferred from the medical floor last weekend. Pt has been difficult on the unit. Multiple staff notes indicate she has been needy, manipulative and intrusive. Patient frequently visits the nursing station with food, clothing or medication requests. She requires a lot of limit setting and redirection. Yesterday there was an incident with a staff member that required the intervention of security and PCP. Patient grabbed the staff member and refused to leave her office. Patients communication is scattered and patient continues to be labile with periods of disorganization. She does appears less frenetic and distressed than last weekend. Focus and impulse control are improving slowly. Sleep is also improved. Patient is consistently oriented to month, year and location during my questioning on multiple occasions. Nonetheless her behavior remains unpredictable. Of note: methadone was decreased from 170 mg daily to 160 mg daily on 06/15 because patient appeared lethargic and confused. Will further decrease to 155 mg to improve alertness and clarity on the unit. Diagnostic Results: Bipolar I disorder by history Polysubstance dependence on methadone maintenance PTSD (post-traumatic stress disorder). Medication Change: Yes (methadone and ativan decreased) Medical Record Reviewed: Yes Mental Status Examination - Cognitive Function Orientation: Person Memory: Intact, Impaired Attention: Poor Concentration: Poor Association: Loose Fund of Knowledge: Poor - Mood Mood: Depressed ("I overly emotional"), Anxious - Affect Affect: Constricted, Other (labile) - Speech Speech: Appropriate - Formal Thought Process Formal Thought Process: Paranoia, Loosening of associations (Thought process remains scattered but less rambling. Appears a little restless and preoccupied however she wasn't observed to be responding to internal stimuli.) - Suicidal Ideation Suicidal Ideation: No - Homicidal Ideation Homicidal Ideation: No Goal/Treatment Plan - Goal/Treatment Plan Need for Continued Stay: Remain at risks for inpatient hospitalization, Severe depression anxiety, Discharge may exacerbated symptoms, Severe functional impairment Progress Toward Problem(s) and Goals/Treatment Plan: * group, milieu and supportive tx * Amitriptyline 25 mg HS was restarted by Dr. Sotelo for depression. * Ativan 1 mg po q8 decreased to 1 mg AMHS and 0.5 mg q1pm due to patient's sedation/confusion during the day. Hold if sbp<100 * Gabapentin 600 mg PO TID off label for anxiety and mood control * Seroquel XR 400 mg AM and HS for mood control * Nicotine 21 mg/24 hr patch for nicotine addiction * Methadone decreased again to 155 mg po daily on 06/17/17 due to patient appearing sedated and disoriented on the unit. * No new labs thus far * Vitals reviewed and noted below: 06/15/17 06/15/17 06/16/17 06:57 16:00 06:47 Temperature 97.3 F L 97.7 F Pulse Rate 90 80 82 Respiratory 20 19 Rate Blood Pressure 102/66 90/65 L 113/81 * PATIENT IS NOW INTERESTED IN INPATIENT REHAB Estimated Date of D/C: 06/18/17 (will monitor closely)
[2017-06-16] MEDS: POLYETHYLENE GLYCOL 3350 17 GM/Dose PACKET PO PRN (12:12)
[2017-06-16] MEDS: QUEtiapine 200 mg XR Tab PO SCH ×2 (12:12→21:08)
[2017-06-16] MEDS: Vitamins A & D Oint UD Foilpak TOP PRN (13:21)
[2017-06-17 07:27] VITALS: RESP 20
[2017-06-17] MEDS: Bisacodyl 5mg EC Tab PO SCH (07:57)
[2017-06-17] MEDS: Multivitamin Therapeutic Tab PO SCH (07:57)
[2017-06-17] MEDS: QUEtiapine 200 mg XR Tab PO SCH ×2 (09:24→23:46)
--- NOTE | 2017-06-17 10:02 | PCM.PYCHPN ---
Psychiatric Progress Note - Psychiatric Progress Note Patient seen today, length of contact: 25 min Patient Chief Complaint: She still complains of depression, anxiety Problems Identified/Issues Discussed: I reviewed recent notes. Patient is well known to me from multiple prior admissions and my admission assessment when patient was transferred from the medical floor last weekend. Patient remains difficult on the unit. Multiple staff notes indicate she has been needy, manipulative and intrusive. Patient frequently visits the nursing station to request food, clothing or medication even after needs were addressed. She still requires a lot of limit setting and redirection. Yesterday (Sunday) patient was confused again, labile, screaming and searching for belongings under her bed. She needed to be directed into the quiet room to calm down. On Sunday there was an incident with a staff member that required the intervention of security and PCP. Patient grabbed the staff member and refused to leave her office. I met with patient at bedside. She remains oriented to month, year and location. Her communication is still scattered however she can be redirected to focus on responding relevantly to questioning. She complains that the staff believe she is nodding off during the day. I explain that we are concerned because she can appear sedated and confused. She seems to accept this explanation without argument. Patient feels Elavil helps for her depression however requests that Ativan be switched to klonopin. Believes that klonopin targeted her anxiety better. Other than that, she denies side effects from her medications. Patient appears less frenetic and distressed than last weekend though she continues to be labile with periods of disorganization. Focus and impulse control are improving slowly. Sleep is also improved. Nonetheless her behavior remains unpredictable. Of note: methadone was decreased from 170 mg daily to 160 mg daily on 06/15 because patient appeared lethargic and confused. Ativan was decreased from 1 /0.5/1 on Sunday. Methadone was further decreased to 155 mg on Sunday to improve alertness and clarity on the unit. Diagnostic Results: Bipolar I disorder by history Polysubstance dependence on methadone maintenance PTSD (post-traumatic stress disorder). Medication Change: Yes (changed ativan to klonopin) Medical Record Reviewed: Yes Mental Status Examination - Cognitive Function Orientation: Person Memory: Intact, Impaired Attention: Poor Concentration: Poor Association: Loose Fund of Knowledge: Poor - Mood Mood: Depressed ("I overly emotional"), Anxious - Affect Affect: Constricted, Other (labile) - Speech Speech: Appropriate - Formal Thought Process Formal Thought Process: Paranoia, Loosening of associations (Thought process remains scattered but less rambling. Appears a little restless and preoccupied however she wasn't observed to be responding to internal stimuli.) - Suicidal Ideation Suicidal Ideation: No - Homicidal Ideation Homicidal Ideation: No Goal/Treatment Plan - Goal/Treatment Plan Need for Continued Stay: Remain at risks for inpatient hospitalization, Severe depression anxiety, Discharge may exacerbated symptoms, Severe functional impairment Progress Toward Problem(s) and Goals/Treatment Plan: * group, milieu and supportive tx * Amitriptyline 25 mg HS was restarted by Dr. Sotelo for depression. * Ativan 1 mg po q8 decreased to 1 mg AMHS and 0.5 mg q1pm on 06/16/17 due to patient's sedation/confusion during the day. Then on 06/17/17 Ativan 1/0.5/1 was changed to equivalent dose of klonopin 0.5/0.25/0.5. Hold if sbp<100 * Gabapentin 600 mg PO TID off label for anxiety and mood control * Seroquel XR 400 mg AM and HS for mood control * Nicotine 21 mg/24 hr patch for nicotine addiction * Methadone decreased again to 155 mg po daily on 06/17/17 due to patient appearing sedated and disoriented on the unit. * No new labs thus far * Vitals reviewed and noted below: 06/17/17 07:00 Temperature 97.5 F L Pulse Rate 81 Respiratory 20 Rate Blood Pressure 99/65 L * PATIENT IS NOW INTERESTED IN INPATIENT REHAB Estimated Date of D/C: 06/18/17 (will monitor closely)
[2017-06-17] MEDS: POLYETHYLENE GLYCOL 3350 17 GM/Dose PACKET PO PRN (13:55)
[2017-06-18] MEDS: Multivitamin Therapeutic Tab PO SCH (07:51)
[2017-06-18] MEDS: Bisacodyl 5mg EC Tab PO SCH (07:52)
[2017-06-18] MEDS: QUEtiapine 200 mg XR Tab PO SCH ×2 (09:04→21:00)
--- NOTE | 2017-06-18 09:52 | PCM.PYCHPN ---
Psychiatric Progress Note - Psychiatric Progress Note Patient seen today, length of contact: 25 min Patient Chief Complaint: She still complains of anxiety Problems Identified/Issues Discussed: I reviewed recent notes. Patient is well known to me from multiple prior admissions and my admission assessment when patient was transferred from the medical floor last weekend. To review: On Sunday there was an incident with a staff member that required the intervention of security and PCP. Patient grabbed the staff member and refused to leave her office. On Sunday patient was confused again, labile, screaming and searching for belongings under her bed. She needed to be directed into the quiet room to calm down. Staff notes indicate that she has been needy and intrusive all weekend-- requiring limit setting and redirection all weekend. Patient also noted to be restless and constantly seeking-- whether it's medications, food, clothing etc. Patient frequently visited the nursing station even after needs were addressed As noted above, patient was difficult all weekend however she has been more alert in the last 12-24 hours. I met with patient at bedside and in the nails today. She remains oriented to month, year and location. Focus, orientation and reactivity are much improved. Her communication is more fluent and organized. She is still scattered however she can more easily be redirected to focus on responding relevantly to questioning. Patient reports mood is better. She still complains of anxiety though klonopin is helping her more than Ativan. I express my concerns about sedation and confusion associated with Methadone and Klonopin are taken together. She is willing to further decrease Methadone if klonopin is increase a little to help with anxiety. Other than that, she denies side effects from her medications. Overall, patient appears much less frenetic and distressed than last weekend. Still labile but her thoughts are clearing up and she is becoming more predictable and pleasant. Of note: methadone was decreased from 170 mg daily to 160 mg daily on 06/15 because patient appeared lethargic and confused. Ativan was decreased from 1 /0.5/1 on Sunday and then switched to klonopin 0.5/0.25/0.5 on Sunday. Methadone was further decreased to 155 mg on Sunday to improve alertness and clarity on the unit. Diagnostic Results: Bipolar I disorder by history Polysubstance dependence on methadone maintenance PTSD (post-traumatic stress disorder). Medication Change: Yes (changed ativan to klonopin) Medical Record Reviewed: Yes Mental Status Examination - Cognitive Function Orientation: Person Memory: Intact, Impaired Attention: Poor (improving) Concentration: Poor Association: Loose Fund of Knowledge: Poor - Mood Mood: Depressed (Improving), Anxious - Affect Affect: Constricted (improved reactivity, still labile) - Speech Speech: Appropriate - Formal Thought Process Formal Thought Process: Paranoia (improving), Loosening of associations ( improving) - Suicidal Ideation Suicidal Ideation: No - Homicidal Ideation Homicidal Ideation: No Goal/Treatment Plan - Goal/Treatment Plan Need for Continued Stay: Remain at risks for inpatient hospitalization, Severe depression anxiety, Discharge may exacerbated symptoms, Severe functional impairment Progress Toward Problem(s) and Goals/Treatment Plan: * group, milieu and supportive tx * Amitriptyline 25 mg HS was restarted by Dr. Sotelo for depression. * Ativan 1 mg po q8 decreased to 1 mg AMHS and 0.5 mg q1pm on 06/16/17 due to patient's sedation/confusion during the day. * Then on 06/17/17 Ativan 1/0.5/1 was changed to equivalent dose of klonopin 0.5/ 0.25/0.5 and then increased to 0.5/0.5/0.5 on 06/18/17. Hold if sbp<100 * Gabapentin 600 mg PO TID off label for anxiety and mood control * Seroquel XR 400 mg AM and HS for mood control * Nicotine 21 mg/24 hr patch for nicotine addiction * Methadone decreased again to 155 mg po daily on 06/17/17 due to patient appearing sedated and disoriented on the unit. It was further decreased on on 150 mg po daily. * No new labs thus far * Vitals reviewed and noted below: 06/18/17 07:41 Temperature 98.3 F Pulse Rate 88 Respiratory 20 Rate Blood Pressure 118/85 * PATIENT IS NOW INTERESTED IN INPATIENT REHAB Estimated Date of D/C: 06/18/17 (will monitor closely)
--- NOTE | 2017-06-18 12:37 | PCM.BM ---
<Kathy Zuniga - Last Filed: 06/18/17 12:34> Treatment Plan Problems - Problems identified on initial assessmt HOPELSNESS/HELPLESNESS Date Initiated: 06/09/17 (pt has improved,talking about going to rehab) Time Initiated: 16:08 Date resolved: 06/18/17 Assessment reference: HP, NA, Other Status: Active MEDICATION NONADHERENCE Date Initiated: 06/09/17 (pt is very compliant with medication) Time Initiated: 16:09 Date resolved: 06/18/17 Assessment reference: HP, NA, Other Status: Active ALTERED SLEEP PATTERN Date Initiated: 06/09/17 (sleep is improving,) Time Initiated: 16:09 Assessment reference: HP, Other Status: Active Treatment assets and liabiliti Patient Assests: adapts well, ADL independent, negotiates basic needs Patient Liabilities: live alone, physical pain, financial problems, poor support system, relationship conflicts, substance abuse, medical problems - Milieu Protocol Maintain good personal hygiene: daily Encourage regular showers, daily Remind patient to perform daily oral care, daily Assist patient to perform ADL's Maintain personal safety: daily Educate patient to report safety concerns to staff, daily Monitor environment for contraband/sharps Medication safety: Monitor for expected outcome, potential side effects: daily, Assess barriers to learning: daily, Assess readiness for medication education: daily Milieu Narrative: * group, milieu and supportive tx * Amitriptyline 25 mg HS was restarted by Dr. Sotelo for depression. * Ativan 1 mg po q8 decreased to 1 mg AMHS and 0.5 mg q1pm on 06/16/17 due to patient's sedation/confusion during the day. * Then on 06/17/17 Ativan 1/0.5/1 was changed to equivalent dose of klonopin 0.5/ 0.25/0.5 and then increased to 0.5/0.5/0.5 on 06/18/17. Hold if sbp<100 * Gabapentin 600 mg PO TID off label for anxiety and mood control * Seroquel XR 400 mg AM and HS for mood control * Nicotine 21 mg/24 hr patch for nicotine addiction * Methadone decreased again to 155 mg po daily on 06/17/17 due to patient appearing sedated and disoriented on the unit. It was further decreased on on 150 mg po daily. * No new labs thus far * Vitals reviewed and noted below: 06/18/17 07:41 Temperature 98.3 F Pulse Rate 88 Respiratory 20 Rate Blood Pressure 118/85 * PATIENT IS NOW INTERESTED IN INPATIENT REHAB Family Contact Family involvement: Famliy/SO not involved - Outside Agency [facility] Care involvment: Information-sharing Agency contact name: [facility] - Goals for Treatment Patient goals for treatment: "To feel happier." Discharge/Continuing Care - Education Needs Education Needs: Patient Medication, Patient Diagnosis/Disease Process, Patient Coping Skills, Patient Anger Management skills, Patient Placement options, Patient Community resources, Patient Activities of Daily Living, Patient Health Practices/Safety, Patient Personal Hygiene/Grooming, Patient Aftercare Safety Plan (REHABBING), Patient Other (DRUG ABUSE OUTCOMES AND BODY HARM) - Discharge Discharge Criteria: Free of Suicidal thoughts, Free of agitation, Normal sleep pattern, Ability to care for self, No longer exhibiting s/s of withdrawal Discharge to:: Home, Substance Abuse Rehab - Treatment Team Participation Patient/Family/SO Statement: * group, milieu and supportive tx * Amitriptyline 25 mg HS was restarted by Dr. Sotelo for depression. * Ativan 1 mg po q8 decreased to 1 mg AMHS and 0.5 mg q1pm on 06/16/17 due to patient's sedation/confusion during the day. * Then on 06/17/17 Ativan 1/0.5/1 was changed to equivalent dose of klonopin 0.5/ 0.25/0.5 and then increased to 0.5/0.5/0.5 on 06/18/17. Hold if sbp<100 * Gabapentin 600 mg PO TID off label for anxiety and mood control * Seroquel XR 400 mg AM and HS for mood control * Nicotine 21 mg/24 hr patch for nicotine addiction * Methadone decreased again to 155 mg po daily on 06/17/17 due to patient appearing sedated and disoriented on the unit. It was further decreased on on 150 mg po daily. * No new labs thus far * Vitals reviewed and noted below: 06/18/17 07:41 Temperature 98.3 F Pulse Rate 88 Respiratory 20 Rate Blood Pressure 118/85 * PATIENT IS NOW INTERESTED IN INPATIENT REHAB Treatment Plan Review - Problem HOPELSNESS/HELPLESNESS Time Initiated: 16:08 MEDICATION NONADHERENCE Time Initiated: 16:09 ALTERED SLEEP PATTERN Time Initiated: 16:09 <Olga Ashley - Last Filed: 06/19/17 08:25> - Diagnosis (1) Bipolar disorder Status: Acute Interventions: * Gabapentin 600 mg PO TID off label for anxiety and mood control * Seroquel XR 300 mg PO q5pm for mood control d/c Amitriptyline which can be more fatal in overdoses. Patient is unpredictable and has a history of suicide attempts. She continues to use a wide variety of substances which can further impair her judgment. This is not the safest standing medication for her depression, anxiety and insomnia. * Paxil 20 mg HS for depression and anxiety 06/10/17 10:54 (2) Polysubstance (including opioids) dependence w/o physiol dependence Status: Acute Interventions: Pharmacotherapy for alcohol/benzos/opioid dependence Maintaining sobriety Relapse prevention Possible rehabilitation Motivational interviewing 12-step programs: AA meetings 06/19/17 08:27 <Yaya Angulo - Last Filed: 06/19/17 13:57> Treatment Plan Problems - Problems identified on initial assessmt Anxiety Date Initiated: 06/19/17 Time Initiated: 13:56 Assessment reference: NA Status: Active
[2017-06-18] MEDS: POLYETHYLENE GLYCOL 3350 17 GM/Dose PACKET PO PRN (14:43)
[2017-06-19] MEDS: Bisacodyl 5mg EC Tab PO SCH (08:15)
[2017-06-19] MEDS: Multivitamin Therapeutic Tab PO SCH (08:17)
[2017-06-19] MEDS: QUEtiapine 200 mg XR Tab PO SCH ×2 (09:27→21:28)
--- NOTE | 2017-06-19 11:29 | CARD ---
APPROVED REPORT EKG Measurement Heart [id number] <Conclusion> Normal sinus rhythm NSSTWchanges and Mildly prolonged QTc are new
[2017-06-19] MEDS ORDERED: Magnesium Citrate Oral SOL (300 ml) PO ONE (13:11)
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
[2017-06-20 07:36] VITALS: BP 92/61; PULSE 113; TEMP 97.4
[2017-06-20] MEDS: Bisacodyl 5mg EC Tab PO SCH (07:49)
[2017-06-20] MEDS: Multivitamin Therapeutic Tab PO SCH (07:52)
[2017-06-20] MEDS: QUEtiapine 200 mg XR Tab PO SCH (09:06)
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
== END 2017-06-20 12:50 | disposition home or self-care (01) | DRG 430 ==
LOC: PSYC 15:06
PROVIDERS: ADMIT Psychiatry & Neurology Psychiatry; ATTEND Psychiatry & Neurology Psychiatry
DX: F31.9 Bipolar disorder, unspecified (principal); F11.20 Opioid dependence, uncomplicated; L03.114 Cellulitis of left upper limb; F43.10 Post-traumatic stress disorder, unspecified; F17.210 Nicotine dependence, cigarettes, uncomplicated; D64.9 Anemia, unspecified; R91.1 Solitary pulmonary nodule; Z86.14 Personal history of Methicillin resistant Staphylococcus aureus infection; Z91.5 Personal history of self-harm